=== PATIENT | female | born 1985 | race Caucasian/White ===

== ENCOUNTER 2022-12-13 13:49 | Inpatient (IN) | payer MEDICARE, MEDICAID ==
[~2022-12-13] VITALS: Ht 167.6 cm; Wt 125.0 kg
[~2022-12-13 13:49] MED LIST: BUME2TAB5 PO; CARV25TA55 PO; CLON0.2T PO; ERGO1CAP12 PO; FERR1TAB17 PO; GAB100C PO; LOSA-69 PO
[2022-12-13 14:56] LABS: Basophils # (auto) 0.1 10 ^3/uL (0-0.2); Basophils % (auto) 0.8 % (0.0-2.0); Eosinophils # (auto) 0.1 10 ^3/uL (0-0.8); Eosinophils % (auto) 1.7 % (0.0-7.0); Hemoglobin 13.5 g/dL (12.2-16.2); Lymphocytes # (auto) 1.8 10 ^3/uL (0.4-5.4); Lymphocytes % (auto) 22.7 % (10.0-50.0); Mean Corpuscular Hemoglobin 32.4 pg (28.0-32.0); Mean Corpuscular Hgb Conc. 33.7 g/dL (32.0-36.0); Monocytes # (auto) 0.6 10 ^3/uL (0-1.3); Monocytes % (auto) 8.2 % (0.0-12.0); Neutrophils # (auto) 5.2 10 ^3/uL (1.6-8.6); Neutrophils % (auto) 66.6 % (37.0-80.0); Nucleated Red Blood Cells % 0.4 %; Red Blood Cells 4.17 10^6/uL (4.0-5.20); Red Cell Distribution Width 15.1 % (11.8-14.3); White Blood Cell 7.9 10^3/uL (4.4-10.8)
[2022-12-13] MEDS ORDERED: NITROGLYCERIN 0.4 MG SL TAB SL PRN (17:00)
[2022-12-13] MEDS ORDERED: MORPHINE SULFATE INJ 2 MG/ml SYRG IV PRN (17:00)
[2022-12-13 17:39] LABS: Anion Gap 8 (5-15); Carbon Dioxide 30 mmol/L (21-32); Chloride 98 mmol/L (98-107); Potassium 4.5 mmol/L (3.5-5.1); Sodium 136 mmol/L (136-145)
[2022-12-13 17:40] LABS: Alanine Aminotransferase 28 U/L (13-56); Albumin 3.4 g/dL (3.4-5.0); Alkaline Phosphatase 113 U/L (45-117); Aspartate Aminotransferase 15 U/L (15-37); BUN/Creatinine Ratio 5.5; Bilirubin, Total 0.5 mg/dL (0.2-1.0); Blood Urea Nitrogen 28 mg/dL (7-18); Calcium 8.6 mg/dL (8.5-10.1); GFR African American 12 mL/min; GFR Non-African American 10 mL/min; Glucose 117 mg/dL (74-106); Total Protein 7.4 g/dL (6.4-8.2)
[2022-12-13] MEDS ORDERED: PANTOPRAZOLE 40 MG/10 ML VIAL INJ IV ONE (17:45)
[2022-12-13] MEDS ORDERED: BUMETANIDE 1 MG TAB PO SCH (17:58)
[2022-12-13] MEDS ORDERED: ERGOCALCIFEROL 50,000 UNIT(1.25MG) CAP PO SCH (18:00)
[2022-12-13] MEDS: BUMETANIDE 1 MG TAB PO SCH (18:00)
[2022-12-13] MEDS: HEPARIN SODIUM (PORCINE) 5000 UNITS/ML 1ML VIAL SC SCH (21:38)
[2022-12-13] MEDS: Ferric Citrate (Auryxia) PO SCH (21:39)
[2022-12-13] MEDS: CARVEDILOL 12.5 MG TAB PO SCH (21:39)
[2022-12-14] MEDS: ONDANSETRON HCL 4 MG/2 ML VIAL IV PRN ×3 (03:35→18:19)
[2022-12-14 05:11] LABS: Basophils # (auto) 0.1 10 ^3/uL (0-0.2); Eosinophils # (auto) 0.1 10 ^3/uL (0-0.8); Eosinophils % (auto) 1.3 % (0.0-7.0); Hematocrit 39.9 % (36.0-46.0); Hemoglobin 13.3 g/dL (12.2-16.2); Lymphocytes # (auto) 2.2 10 ^3/uL (0.4-5.4); Lymphocytes % (auto) 24.8 % (10.0-50.0); Mean Corpuscular Hgb Conc. 33.3 g/dL (32.0-36.0); Mean Corpuscular Volume 96.1 fL (80.0-100.0); Monocytes # (auto) 0.8 10 ^3/uL (0-1.3); Monocytes % (auto) 8.7 % (0.0-12.0); Neutrophils # (auto) 5.6 10 ^3/uL (1.6-8.6); Neutrophils % (auto) 64.2 % (37.0-80.0); Nucleated Red Blood Cells % 0.1 %; Red Blood Cells 4.15 10^6/uL (4.0-5.20); Red Cell Distribution Width 15.4 % (11.8-14.3); White Blood Cell 8.7 10^3/uL (4.4-10.8)
[2022-12-14] MEDS: BUMETANIDE 1 MG TAB PO SCH ×2 (06:50→18:20)
[2022-12-14] MEDS: Ferric Citrate (Auryxia) PO SCH (07:51)
[2022-12-14] MEDS ORDERED: LOSARTAN POTASSIUM 50 MG TAB PO SCH (10:00)
[2022-12-14] MEDS ORDERED: GABAPENTIN 100 MG CAP PO SCH ×2 (10:00→10:30)
[2022-12-14] MEDS ORDERED: LORazepam 2MG/ML-1ML VIAL IV PRN (10:30)
[2022-12-14] MEDS: HEPARIN SODIUM (PORCINE) 5000 UNITS/ML 1ML VIAL SC SCH ×2 (10:35→21:57)
[2022-12-14] MEDS: CARVEDILOL 12.5 MG TAB PO SCH ×2 (10:39→21:56)
[2022-12-14] MEDS: PANTOPRAZOLE 40 MG/10 ML VIAL INJ IV SCH (10:39)
[2022-12-14 13:12] VITALS: BP 146/94
[2022-12-14] MEDS ORDERED: APIX2.5T PO (14:13)
[2022-12-14] MEDS ORDERED: ONDA-188 PO (14:13)
[2022-12-14] MEDS ORDERED: B-COTAB10 OR (14:13)
[2022-12-14] MEDS ORDERED: NIFE1TAB30 (14:13)
[2022-12-14 14:34] LABS: Ferritin 290.8 ng/mL (10-322)
[2022-12-14 14:35] LABS: Folate (Folic Acid) > 24.00 ng/mL (5.38-24)
[2022-12-14 18:24] VITALS: BP 130/76
[2022-12-14] MEDS: FERRIC CITRATE PO SCH (19:05)
[2022-12-14 22:00] VITALS: BP 117/75
[2022-12-14] MEDS ORDERED: GABAPENTIN 100 MG CAP PO ONE (22:15)
[2022-12-15 05:00] VITALS: BP 141/77
[2022-12-15] MEDS: BUMETANIDE 1 MG TAB PO SCH (05:36)
[2022-12-15] MEDS ORDERED: SODIUM CHL 0.9% 1000 ML BAG XX ONE (07:00)
[2022-12-15 07:50] VITALS: BP 135/81
[2022-12-15] MEDS: FERRIC CITRATE PO SCH ×2 (08:03→13:19)
[2022-12-15] MEDS: PANTOPRAZOLE 40 MG/10 ML VIAL INJ IV SCH (08:04)
[2022-12-15] MEDS: CARVEDILOL 12.5 MG TAB PO SCH ×2 (08:09→13:18)
[2022-12-15] MEDS: HEPARIN SODIUM (PORCINE) 5000 UNITS/ML 1ML VIAL SC SCH (08:09)
[2022-12-15] MEDS: ONDANSETRON HCL 4 MG/2 ML VIAL IV PRN (10:03)
[2022-12-15 13:35] VITALS: BP 148/85
[2022-12-15] MEDS ORDERED: B-COTAB10 OR (14:21)
[2022-12-15 17:37] LABS: % Iron Saturation 38.4 % (15-50)
[2022-12-15 18:31] LABS: Cholesterol 150 mg/dL (< 200)
[2022-12-15 18:34] LABS: HDL Cholesterol 29 mg/dL (40-59); LDL Cholesterol 103 mg/dL (< 100); Triglycerides 235 mg/dL (< 150)
== END 2022-12-15 15:54 | disposition home or self-care (01) | DRG 314 ==
LOC: EDUNIT# 13:49 → ER 13:49 → EDBD 13:49 → TELE 17:05 → TELE-E-ADS 12-14 12:43 → TELE-EAST 12-14 19:10
PROVIDERS: ADMIT Nurse Practitioner Family; ATTEND Internal Medicine
PROC: 5A1D70Z Performance of Urinary Filtration, Intermittent, Less than 6 Hours Per Day (ICD-10-PCS; principal; 2022-12-15)
DX: I95.9 Hypotension, unspecified (principal); J81.0 Acute pulmonary edema; N18.6 End stage renal disease; I12.0 Hypertensive chronic kidney disease with stage 5 chronic kidney disease or end stage renal disease; Z68.41 Body mass index [BMI] 40.0-44.9, adult; D63.8 Anemia in other chronic diseases classified elsewhere; E66.01 Morbid (severe) obesity due to excess calories; Z20.822 Contact with and (suspected) exposure to COVID-19; G25.81 Restless legs syndrome; G47.00 Insomnia, unspecified; K21.9 Gastro-esophageal reflux disease without esophagitis; Z96.41 Presence of insulin pump (external) (internal); E83.39 Other disorders of phosphorus metabolism; E10.22 Type 1 diabetes mellitus with diabetic chronic kidney disease; E10.42 Type 1 diabetes mellitus with diabetic polyneuropathy; R09.89 Other specified symptoms and signs involving the circulatory and respiratory systems; Z71.3 Dietary counseling and surveillance; Z79.899 Other long term (current) drug therapy; Z79.4 Long term (current) use of insulin; Z99.2 Dependence on renal dialysis; Z80.0 Family history of malignant neoplasm of digestive organs; Z80.1 Family history of malignant neoplasm of trachea, bronchus and lung; Z80.3 Family history of malignant neoplasm of breast; Z80.41 Family history of malignant neoplasm of ovary; Z80.8 Family history of malignant neoplasm of other organs or systems; Z81.8 Family history of other mental and behavioral disorders; Z82.0 Family history of epilepsy and other diseases of the nervous system; Z82.3 Family history of stroke; Z82.49 Family history of ischemic heart disease and other diseases of the circulatory system; Z82.5 Family history of asthma and other chronic lower respiratory diseases; Z82.62 Family history of osteoporosis; Z83.3 Family history of diabetes mellitus
CPT/HCPCS: 36415; 70450; 71045; 80053; 80061; 82607; 82728; 82746; 82962; 83036; 83540; 83550; 83880; 84443; 84484; 85025; 87426; 90935; 93005; 93886; 95819; 96374; 96375; C9113; G0378; J1642; J2405

== ENCOUNTER 2023-09-10 13:41 | Inpatient (IN) | payer MEDICARE, MEDICAID ==
[~2023-09-10] VITALS: Ht 172.7 cm; Wt 115.0 kg
[~2023-09-10 13:41] MED LIST changes: +APIX2.5T PO; +B-COTAB10 OR; -LOSA-69 PO; +LOSA50TA46 PO; +ONDA-188 PO
[2023-09-10 14:30] LABS: Basophils # (auto) 0 10 ^3/uL (0-0.2); Basophils % (auto) 0.2 % (0.0-2.0); Eosinophils # (auto) 0.1 10 ^3/uL (0-0.8); Eosinophils % (auto) 0.9 % (0.0-7.0); Hematocrit 33.1 % (36.0-46.0); Hemoglobin 10.9 g/dL (12.2-16.2); Lymphocytes # (auto) 1.5 10 ^3/uL (0.4-5.4); Lymphocytes % (auto) 9.6 % (10.0-50.0); Mean Corpuscular Hemoglobin 30.8 pg (28.0-32.0); Mean Corpuscular Volume 93.4 fL (80.0-100.0); Monocytes # (auto) 1.4 10 ^3/uL (0-1.3); Monocytes % (auto) 9.1 % (0.0-12.0); Neutrophils # (auto) 12.7 10 ^3/uL (1.6-8.6); Neutrophils % (auto) 80.2 % (37.0-80.0); Red Blood Cells 3.55 10^6/uL (4.0-5.20); Red Cell Distribution Width 14.8 % (11.8-14.3); White Blood Cell 15.9 10^3/uL (4.4-10.8)
[2023-09-10 14:45] LABS: Alanine Aminotransferase 19 U/L (7-40); Albumin 3.9 g/dL (3.2-4.8); Alkaline Phosphatase 172 U/L (46-116); Anion Gap 9 (5-15); Aspartate Aminotransferase 24 U/L (13-40); BUN/Creatinine Ratio 4.3 (10.0-20.0); Bilirubin, Total 0.3 mg/dL (0.2-1.0); Blood Urea Nitrogen 34 mg/dL (9-23); Calcium 9.2 mg/dL (8.7-10.4); Carbon Dioxide 28 mmol/L (20-30); Chloride 90 mmol/L (98-107); Glucose 330 mg/dL (74-106); Potassium 4.9 mmol/L (3.5-5.1); Sodium 127 mmol/L (136-145)
[2023-09-10] MEDS ORDERED: LACTATED RINGER'S 1,000 ML IV ONE (20:15)
[2023-09-10] MEDS ORDERED: VANCOMYCIN 1GM/250ML 250 ML IV ONE (20:15)
[2023-09-10] MEDS ORDERED: PIPERACILLIN-TAZOB 3.375GM 100 ML IV ONE (20:15)
[2023-09-10] MEDS ORDERED: HYDROcodone-ACET 10/325MG TAB PO ONE (20:45)
[2023-09-10 20:58] LABS: Lipase 24 U/L (12-53)
[2023-09-10 20:59] LABS: Magnesium 2.3 mg/dL (1.6-2.6)
[2023-09-10 21:14] LABS: INR 1.23 (0.9-1.15); Partial Thromboplastin Time 35.2 SEC (24.5-34.5); Prothrombin Time 12.7 sec (9.3-11.8)
[2023-09-10 21:22] LABS: Erythrocyte Sedimentation Rate 89 mm/hr (0-20)
[2023-09-10] MEDS ORDERED: MORPHINE SULFATE INJ 2 MG/ml SYRG IV PRN (23:00)
[2023-09-10] MEDS ORDERED: NITROGLYCERIN 0.4 MG SL TAB SL PRN (23:00)
[2023-09-10] MEDS ORDERED: HYDROcodone-ACET 5/325MG TAB PO PRN (23:00)
[2023-09-10] MEDS ORDERED: ONDANSETRON HCL 4 MG/2 ML VIAL IV PRN (23:00)
[2023-09-10] MEDS ORDERED: VANCOMYCIN PER PHARMACY 0 MG IV SCH (23:00)
[2023-09-10] MEDS ORDERED: DEXTROSE (50%) 50ML SYRG IV PRN (23:00)
[2023-09-10 23:23] LABS: CRP High Sensitivity > 20 mg/dL (<1.0)
[2023-09-11] MEDS ORDERED: FERR1TAB17 PO (02:28)
[2023-09-11 05:00] VITALS: BP 107/55; PULSE 74; RESP 16; TEMP 98.2; O2SAT 96
[2023-09-11 05:46] LABS: Basophils # (auto) 0.1 10 ^3/uL (0-0.2); Basophils % (auto) 0.3 % (0.0-2.0); Eosinophils # (auto) 0.3 10 ^3/uL (0-0.8); Eosinophils % (auto) 1.6 % (0.0-7.0); Hematocrit 31.2 % (36.0-46.0); Hemoglobin 10.3 g/dL (12.2-16.2); Lymphocytes # (auto) 2.1 10 ^3/uL (0.4-5.4); Lymphocytes % (auto) 12.2 % (10.0-50.0); Mean Corpuscular Hgb Conc. 33.1 g/dL (32.0-36.0); Mean Corpuscular Volume 93.6 fL (80.0-100.0); Monocytes # (auto) 1.9 10 ^3/uL (0-1.3); Monocytes % (auto) 11.1 % (0.0-12.0); Neutrophils # (auto) 12.8 10 ^3/uL (1.6-8.6); Neutrophils % (auto) 74.8 % (37.0-80.0); Nucleated Red Blood Cells % 0.1 %; Red Blood Cells 3.33 10^6/uL (4.0-5.20); Red Cell Distribution Width 14.5 % (11.8-14.3); White Blood Cell 17.1 10^3/uL (4.4-10.8)
[2023-09-11 05:51] VITALS: PULSE 74; RESP 16; O2SAT 96
[2023-09-11] MEDS ORDERED: cloNIDine HCL 0.1 MG TAB PO SCH (06:00)
[2023-09-11] MEDS ORDERED: BUMETANIDE 1 MG TAB PO SCH (06:00)
[2023-09-11 06:07] LABS: Alanine Aminotransferase 16 U/L (7-40); Albumin 3.7 g/dL (3.2-4.8); Alkaline Phosphatase 142 U/L (46-116); Anion Gap 8 (5-15); Aspartate Aminotransferase 9 U/L (13-40); BUN/Creatinine Ratio 4.3 (10.0-20.0); Bilirubin, Total 0.4 mg/dL (0.2-1.0); Blood Urea Nitrogen 37 mg/dL (9-23); Calcium 9.3 mg/dL (8.5-10.1); Carbon Dioxide 28 mmol/L (20-30); Chloride 93 mmol/L (98-107); Glucose 131 mg/dL (74-106); Potassium 4.6 mmol/L (3.5-5.1); Sodium 129 mmol/L (136-145); Total Protein 7.5 g/dL (5.7-8.2)
[2023-09-11] MEDS: InsuLIN REG 1unit/0.01ml Soln (100units/ml) SC SCH ×4 (07:00→21:18)
[2023-09-11] MEDS: ACCU-CHEK COMFORT CURVE STRIP VI SCH ×4 (07:00→21:17)
[2023-09-11 09:00] VITALS: BP 121/66; PULSE 77; RESP 19; TEMP 98.4; O2SAT 98
[2023-09-11] MEDS: PIPERACILLIN-TAZOB 2.25GM 50 ML IV SCH ×2 (09:10→21:32)
[2023-09-11] MEDS ORDERED: APIXABAN 2.5 MG TAB PO SCH (10:00)
[2023-09-11] MEDS ORDERED: CARVEDILOL 12.5 MG TAB PO SCH (10:00)
[2023-09-11] MEDS ORDERED: guaiFENesin-DM 100/10mg/5ml SYR PO PRN (11:45)
[2023-09-11] MEDS ORDERED: SODIUM CHL 0.9% 1000 ML BAG XX ONE (11:45)
[2023-09-11 13:06] VITALS: BP 122/60; PULSE 85; RESP 18; TEMP 98.6; O2SAT 96
[2023-09-11 17:00] VITALS: BP 127/78; PULSE 104; RESP 20; TEMP 99.5; O2SAT 90
[2023-09-11] MEDS ORDERED: VANCOMYCIN 1GM/250ML 250 ML IV ONE (17:00)
[2023-09-11] MEDS: ACETAMINOPHEN 325 MG TAB PO PRN (20:29)
[2023-09-11] MEDS: DAKINS QUARTER STR 0.125% (NaHypochlorite) 473 ML TOPICAL SOL TOP SCH (21:32)
[2023-09-11 22:00] VITALS: BP 99/51; PULSE 104; RESP 16; TEMP 100; O2SAT 93
[2023-09-12 04:36] VITALS: BP 126/72; PULSE 87; RESP 16; TEMP 98.1; O2SAT 91
[2023-09-12 06:08] LABS: Basophils # (auto) 0.1 10 ^3/uL (0-0.2); Basophils % (auto) 0.7 % (0.0-2.0); Eosinophils # (auto) 0.2 10 ^3/uL (0-0.8); Eosinophils % (auto) 1.5 % (0.0-7.0); Hematocrit 30.5 % (36.0-46.0); Hemoglobin 9.8 g/dL (12.2-16.2); Lymphocytes # (auto) 1.7 10 ^3/uL (0.4-5.4); Lymphocytes % (auto) 14.1 % (10.0-50.0); Mean Corpuscular Hemoglobin 30.6 pg (28.0-32.0); Mean Corpuscular Hgb Conc. 32.3 g/dL (32.0-36.0); Mean Corpuscular Volume 94.7 fL (80.0-100.0); Monocytes # (auto) 1.5 10 ^3/uL (0-1.3); Monocytes % (auto) 13.1 % (0.0-12.0); Neutrophils # (auto) 8.3 10 ^3/uL (1.6-8.6); Neutrophils % (auto) 70.6 % (37.0-80.0); Red Blood Cells 3.22 10^6/uL (4.0-5.20); Red Cell Distribution Width 14.4 % (11.8-14.3); White Blood Cell 11.8 10^3/uL (4.4-10.8)
[2023-09-12] MEDS: ACCU-CHEK COMFORT CURVE STRIP VI SCH ×4 (06:11→22:10)
[2023-09-12] MEDS: InsuLIN REG 1unit/0.01ml Soln (100units/ml) SC SCH ×4 (06:11→22:00)
[2023-09-12 06:13] LABS: Alanine Aminotransferase 18 U/L (7-40); Albumin 3.6 g/dL (3.2-4.8); Alkaline Phosphatase 210 U/L (46-116); Anion Gap 4 (5-15); Aspartate Aminotransferase 22 U/L (13-40); BUN/Creatinine Ratio 3.4 (10.0-20.0); Bilirubin, Total 0.3 mg/dL (0.2-1.0); Carbon Dioxide 30 mmol/L (20-30); Chloride 96 mmol/L (98-107); Glucose 83 mg/dL (74-106); Magnesium 2.2 mg/dL (1.6-2.6); Potassium 4.4 mmol/L (3.5-5.1); Sodium 130 mmol/L (136-145); Total Protein 7.4 g/dL (5.7-8.2)
[2023-09-12 06:57] LABS: Blood Urea Nitrogen 23 mg/dL (9-23)
[2023-09-12 09:00] VITALS: BP 118/66; PULSE 83; RESP 20; TEMP 98.4; O2SAT 100
[2023-09-12] MEDS: PIPERACILLIN-TAZOB 2.25GM 50 ML IV SCH (11:47)
[2023-09-12] MEDS: DAKINS QUARTER STR 0.125% (NaHypochlorite) 473 ML TOPICAL SOL TOP SCH ×2 (11:47→21:55)
[2023-09-12 12:56] VITALS: BP 130/69; PULSE 76; RESP 19; TEMP 98.5; O2SAT 93
[2023-09-12 17:28] VITALS: BP 100/49; PULSE 86; RESP 19; TEMP 99.6; O2SAT 93
[2023-09-12] MEDS: AMPICILLIN & SULBACTAM SODIUM 3 GM in SODIUM CHL 0.9% 100 ML IV SCH (17:56)
[2023-09-12 20:00] VITALS: PULSE 98; RESP 18; O2SAT 100
[2023-09-12 22:00] VITALS: BP 128/76; PULSE 98; RESP 18; TEMP 99.3; O2SAT 100
[2023-09-13] VITALS (7 sets, daily range): BP systolic 109–143; BP diastolic 54–86; PULSE 84–97; RESP 18–19; TEMP 97.7–98.8; O2SAT 90–100
[2023-09-13 05:30] LABS: Basophils # (auto) 0.1 10 ^3/uL (0-0.2); Basophils % (auto) 0.8 % (0.0-2.0); Eosinophils # (auto) 0.3 10 ^3/uL (0-0.8); Eosinophils % (auto) 2.7 % (0.0-7.0); Hematocrit 28.5 % (36.0-46.0); Hemoglobin 9.2 g/dL (12.2-16.2); Lymphocytes # (auto) 1.6 10 ^3/uL (0.4-5.4); Lymphocytes % (auto) 14.1 % (10.0-50.0); Mean Corpuscular Hemoglobin 30.7 pg (28.0-32.0); Mean Corpuscular Hgb Conc. 32.3 g/dL (32.0-36.0); Mean Corpuscular Volume 94.8 fL (80.0-100.0); Monocytes # (auto) 1.2 10 ^3/uL (0-1.3); Monocytes % (auto) 10.4 % (0.0-12.0); Neutrophils # (auto) 8.2 10 ^3/uL (1.6-8.6); Nucleated Red Blood Cells % 0.1 %; Red Blood Cells 3.01 10^6/uL (4.0-5.20); Red Cell Distribution Width 14.9 % (11.8-14.3); White Blood Cell 11.5 10^3/uL (4.4-10.8)
[2023-09-13 05:47] LABS: Alanine Aminotransferase 47 U/L (7-40); Albumin 3.3 g/dL (3.2-4.8); Alkaline Phosphatase 293 U/L (46-116); Anion Gap 8 (5-15); Aspartate Aminotransferase 80 U/L (13-40); BUN/Creatinine Ratio 3.8 (10.0-20.0); Blood Urea Nitrogen 30 mg/dL (9-23); Calcium 8.4 mg/dL (8.5-10.1); Carbon Dioxide 26 mmol/L (20-30); Chloride 91 mmol/L (98-107); Glucose 377 mg/dL (74-106); Potassium 5.3 mmol/L (3.5-5.1)
[2023-09-13 05:48] LABS: Bilirubin, Total 0.5 mg/dL (0.2-1.0); Total Protein 7.1 g/dL (5.7-8.2)
[2023-09-13] MEDS: InsuLIN REG 1unit/0.01ml Soln (100units/ml) SC SCH ×4 (06:14→22:00)
[2023-09-13] MEDS: ACCU-CHEK COMFORT CURVE STRIP VI SCH ×4 (06:16→22:32)
[2023-09-13 06:20] LABS: Sodium 125 mmol/L (136-145)
[2023-09-13 06:50] LABS: Magnesium 2.2 mg/dL (1.6-2.6)
[2023-09-13] MEDS ORDERED: SODIUM CHL 0.9% 1000 ML BAG XX ONE (07:00)
[2023-09-13] MEDS ORDERED: LIDOCAINE 1% HCL (LOCAL ANESTH.) INJ 20ML MDV ONE (07:10)
[2023-09-13] MEDS ORDERED: ceFAZolin 1GM/50ML 0 ML IV ONE (10:42)
[2023-09-13] MEDS ORDERED: CLINDAMYCIN 600MG IV 50 ML IV ONE (11:00)
[2023-09-13] MEDS ORDERED: LIDOCAINE HCL (LOCAL ANESTH.) 0.5 % 50ML MDV IJ ONE (12:43)
[2023-09-13] MEDS ORDERED: CHLORHEXIDINE 4% TOPICAL soln 237ML TOP ONE (12:55)
[2023-09-13] MEDS: DAKINS QUARTER STR 0.125% (NaHypochlorite) 473 ML TOPICAL SOL TOP SCH ×2 (14:44→22:00)
[2023-09-13 15:58] LABS: INR 1.13 (0.9-1.15); Prothrombin Time 11.8 sec (9.3-11.8)
[2023-09-13] MEDS: AMPICILLIN & SULBACTAM SODIUM 3 GM in SODIUM CHL 0.9% 100 ML IV SCH (16:05)
[2023-09-13] MEDS: EPOETIN ALFA-EPBX 4,000 UNIT/ML VIAL SC ONE (21:00)
[2023-09-14] VITALS (7 sets, daily range): BP systolic 111–132; BP diastolic 59–77; PULSE 77–99; RESP 18–20; TEMP 97.4–98.5; O2SAT 92–98
[2023-09-14] MEDS: InsuLIN REG 1unit/0.01ml Soln (100units/ml) SC SCH ×4 (05:39→21:47)
[2023-09-14] MEDS: ACCU-CHEK COMFORT CURVE STRIP VI SCH ×4 (05:41→21:46)
[2023-09-14] MEDS ORDERED: SODIUM CHL 0.9% 1000 ML BAG XX ONE (07:00)
[2023-09-14] MEDS: DAKINS QUARTER STR 0.125% (NaHypochlorite) 473 ML TOPICAL SOL TOP SCH ×2 (10:00→22:06)
[2023-09-14] MEDS: AMPICILLIN & SULBACTAM SODIUM 3 GM in SODIUM CHL 0.9% 100 ML IV SCH (15:38)
[2023-09-14] MEDS ORDERED: EPOETIN ALFA-EPBX 4,000 UNIT/ML VIAL SC ONE (21:30)
[2023-09-14] MEDS: ACETAMINOPHEN 325 MG TAB PO PRN (21:41)
[2023-09-15 05:00] VITALS: BP 138/86; PULSE 87; RESP 20; TEMP 97.9; O2SAT 98
[2023-09-15] MEDS: ACETAMINOPHEN 325 MG TAB PO PRN (05:48)
[2023-09-15 08:00] VITALS: BP 125/73; PULSE 74; RESP 17; TEMP 97.9; O2SAT 96
[2023-09-15 08:34] VITALS: BP 125/73; PULSE 74; RESP 17; TEMP 97.9; O2SAT 96
[2023-09-15] MEDS ORDERED: AUG875T PO (09:18)
[2023-09-15] MEDS ORDERED: HYDR-4902 PO (09:18)
[2023-09-15] MEDS: InsuLIN REG 1unit/0.01ml Soln (100units/ml) SC SCH ×2 (11:30→17:00)
[2023-09-15] MEDS: ACCU-CHEK COMFORT CURVE STRIP VI SCH ×2 (11:49→17:00)
[2023-09-15] MEDS: DAKINS QUARTER STR 0.125% (NaHypochlorite) 473 ML TOPICAL SOL TOP SCH (11:49)
[2023-09-15 13:00] VITALS: BP 125/70; PULSE 77; RESP 18; TEMP 98; O2SAT 95
[2023-09-15] MEDS: AMPICILLIN & SULBACTAM SODIUM 3 GM in SODIUM CHL 0.9% 100 ML IV SCH (15:02)
[2023-09-15 17:00] VITALS: BP 120/71; PULSE 86; RESP 18; TEMP 98; O2SAT 97
[2023-09-15 17:07] VITALS: BP 120/71; PULSE 86; RESP 18; TEMP 98; O2SAT 97
== END 2023-09-15 17:50 | disposition home health service (06) | DRG 853 ==
LOC: ER 13:41 → OVERFLOW 22:58 → EAST 09-11 01:55
PROVIDERS: ADMIT Nurse Practitioner; ATTEND Family Medicine
PROC: 5A1D70Z Performance of Urinary Filtration, Intermittent, Less than 6 Hours Per Day (ICD-10-PCS; 2023-09-11)
PROC: 5A1D70Z Performance of Urinary Filtration, Intermittent, Less than 6 Hours Per Day (ICD-10-PCS; 2023-09-13)
PROC: 0JBR0ZZ Excision of Left Foot Subcutaneous Tissue and Fascia, Open Approach (ICD-10-PCS; principal; 2023-09-13 13:08)
DX: A41.9 Sepsis, unspecified organism (principal); N18.6 End stage renal disease; E87.1 Hypo-osmolality and hyponatremia; L03.116 Cellulitis of left lower limb; M86.8X7 Other osteomyelitis, ankle and foot; I12.0 Hypertensive chronic kidney disease with stage 5 chronic kidney disease or end stage renal disease; L02.612 Cutaneous abscess of left foot; L97.529 Non-pressure chronic ulcer of other part of left foot with unspecified severity; E66.9 Obesity, unspecified; D63.1 Anemia in chronic kidney disease; Z96.41 Presence of insulin pump (external) (internal); E78.5 Hyperlipidemia, unspecified; Z80.1 Family history of malignant neoplasm of trachea, bronchus and lung; Z80.3 Family history of malignant neoplasm of breast; Z80.41 Family history of malignant neoplasm of ovary; Z80.7 Family history of other malignant neoplasms of lymphoid, hematopoietic and related tissues; Z80.8 Family history of malignant neoplasm of other organs or systems; Z81.8 Family history of other mental and behavioral disorders; Z82.0 Family history of epilepsy and other diseases of the nervous system; Z82.3 Family history of stroke; Z82.49 Family history of ischemic heart disease and other diseases of the circulatory system; Z82.5 Family history of asthma and other chronic lower respiratory diseases; Z82.62 Family history of osteoporosis; Z83.3 Family history of diabetes mellitus; Z99.2 Dependence on renal dialysis; Z79.4 Long term (current) use of insulin; S91.302A Unspecified open wound, left foot, initial encounter; X58.XXXA Exposure to other specified factors, initial encounter; Y93.89 Activity, other specified; Y92.89 Other specified places as the place of occurrence of the external cause; Y99.8 Other external cause status; B95.61 Methicillin susceptible Staphylococcus aureus infection as the cause of diseases classified elsewhere; E10.621 Type 1 diabetes mellitus with foot ulcer; E10.65 Type 1 diabetes mellitus with hyperglycemia; E10.42 Type 1 diabetes mellitus with diabetic polyneuropathy; E10.22 Type 1 diabetes mellitus with diabetic chronic kidney disease
CPT/HCPCS: 36415; 71045; 73630; 73718; 80053; 80202; 82010; 82962; 83605; 83690; 83735; 83930; 84484; 85025; 85610; 85652; 85730; 86141; 87040; 87070; 87075; 87077; 87186; 87205; 90935; 97110; 97163; 97530; G0378; J0690; J1642; J2001; J2405; J2543; J3490

== ENCOUNTER 2023-10-08 07:32 | Emergency (ER) | payer MEDICARE, MEDICAID ==
[~2023-10-08] VITALS: Ht 172.7 cm; Wt 118.0 kg
[~2023-10-08 07:32] MED LIST changes: -APIX2.5T PO; +AUG875T PO; -CARV25TA55 PO; -CLON0.2T PO; +HYDR-4902 PO; -LOSA50TA46 PO
[2023-10-08 08:24] LABS: Basophils # (auto) 0.1 10 ^3/uL (0-0.2); Basophils % (auto) 0.6 % (0.0-2.0); Eosinophils # (auto) 0.2 10 ^3/uL (0-0.8); Eosinophils % (auto) 2.2 % (0.0-7.0); Hemoglobin 11.8 g/dL (12.2-16.2); Lymphocytes % (auto) 23.8 % (10.0-50.0); Mean Corpuscular Hemoglobin 30.9 pg (28.0-32.0); Mean Corpuscular Hgb Conc. 33.6 g/dL (32.0-36.0); Mean Corpuscular Volume 91.9 fL (80.0-100.0); Monocytes # (auto) 0.8 10 ^3/uL (0-1.3); Monocytes % (auto) 9.5 % (0.0-12.0); Neutrophils # (auto) 5.3 10 ^3/uL (1.6-8.6); Neutrophils % (auto) 63.9 % (37.0-80.0); Red Blood Cells 3.81 10^6/uL (4.0-5.20); Red Cell Distribution Width 15.2 % (11.8-14.3); White Blood Cell 8.3 10^3/uL (4.4-10.8)
[2023-10-08 08:46] LABS: Alanine Aminotransferase 32 U/L (7-40); Albumin 4.2 g/dL (3.2-4.8); Alkaline Phosphatase 156 U/L (46-116); Anion Gap 8 (5-15); Aspartate Aminotransferase 17 U/L (13-40); BUN/Creatinine Ratio 5.6 (10.0-20.0); Blood Urea Nitrogen 44 mg/dL (9-23); Calcium 9.7 mg/dL (8.7-10.4); Carbon Dioxide 29 mmol/L (20-30); Chloride 95 mmol/L (98-107); Glucose 234 mg/dL (74-106); Lipase 48 U/L (12-53); Potassium 4.6 mmol/L (3.5-5.1); Sodium 132 mmol/L (136-145)
[2023-10-08 08:47] LABS: Bilirubin, Total 0.3 mg/dL (0.2-1.0)
[2023-10-08 09:33] VITALS: BP 139/83; PULSE 89; RESP 15; TEMP 97.5; O2SAT 99
== END 2023-10-08 09:38 | disposition home or self-care (01) ==
LOC: ER 07:32
DX: R10.30 Lower abdominal pain, unspecified (principal); R11.2 Nausea with vomiting, unspecified; M54.59 Other low back pain; R30.9 Painful micturition, unspecified; I12.0 Hypertensive chronic kidney disease with stage 5 chronic kidney disease or end stage renal disease; E11.22 Type 2 diabetes mellitus with diabetic chronic kidney disease; N18.6 End stage renal disease; Z98.890 Other specified postprocedural states; Z88.8 Allergy status to other drugs, medicaments and biological substances; Z79.899 Other long term (current) drug therapy
CPT/HCPCS: 36415; 74176; 80053; 83690; 85025

== ENCOUNTER 2024-01-03 15:54 | Inpatient (IN) | payer MEDICARE, MEDICAID ==
[~2024-01-03] VITALS: Ht 172.7 cm; Wt 132.0 kg
[2024-01-03 18:41] LABS: Chloride 96 mmol/L (98-107); Potassium 4.3 mmol/L (3.5-5.1); Sodium 132 mmol/L (136-145)
[2024-01-03 18:42] LABS: Anion Gap 5 (5-15); Carbon Dioxide 31 mmol/L (20-30)
[2024-01-03 18:43] LABS: Calcium 9.6 mg/dL (8.5-10.1)
[2024-01-03 18:44] LABS: Basophils # (auto) 0 10 ^3/uL (0-0.2); Basophils % (auto) 0.5 % (0.0-2.0); Eosinophils # (auto) 0.2 10 ^3/uL (0-0.8); Eosinophils % (auto) 1.7 % (0.0-7.0); Hematocrit 41.2 % (36.0-46.0); Hemoglobin 13.8 g/dL (12.2-16.2); Lymphocytes # (auto) 2.2 10 ^3/uL (0.4-5.4); Lymphocytes % (auto) 23.2 % (10.0-50.0); Mean Corpuscular Hemoglobin 32.8 pg (28.0-32.0); Mean Corpuscular Hgb Conc. 33.6 g/dL (32.0-36.0); Mean Corpuscular Volume 97.5 fL (80.0-100.0); Monocytes # (auto) 0.8 10 ^3/uL (0-1.3); Monocytes % (auto) 9.1 % (0.0-12.0); Neutrophils # (auto) 6.1 10 ^3/uL (1.6-8.6); Neutrophils % (auto) 65.5 % (37.0-80.0); Nucleated Red Blood Cells % 0.1 %; Red Blood Cells 4.22 10^6/uL (4.0-5.20); White Blood Cell 9.3 10^3/uL (4.4-10.8)
[2024-01-03 18:47] LABS: BUN/Creatinine Ratio 2.7 (10.0-20.0); Blood Urea Nitrogen 14 mg/dL (9-23); Glucose 340 mg/dL (74-106)
[2024-01-03 19:01] LABS: INR 0.98 (0.9-1.15); Partial Thromboplastin Time 30.5 SEC (24.5-34.5); Prothrombin Time 10.3 sec (9.3-11.8)
[2024-01-03] MEDS ORDERED: DEXTROSE (50%) 50ML SYRG IV PRN (21:00)
[2024-01-04] MEDS: InsuLIN REG 1unit/0.01ml Soln (100units/ml) SC SCH
[2024-01-04 01:00] VITALS: PULSE 93; RESP 18; O2SAT 96
[2024-01-04] MEDS: cefTRIAXone 1GM/50ML D5W 50 ML IV SCH (01:16)
[2024-01-04] MEDS: CLINDAMYCIN 600MG IV 50 ML IV SCH ×2 (01:49→10:09)
[2024-01-04] MEDS: ACCU-CHEK COMFORT CURVE STRIP VI SCH ×2 (01:57→13:00)
[2024-01-04 05:08] LABS: Basophils # (auto) 0.1 10 ^3/uL (0-0.2); Basophils % (auto) 0.8 % (0.0-2.0); Eosinophils # (auto) 0.2 10 ^3/uL (0-0.8); Eosinophils % (auto) 2.1 % (0.0-7.0); Hematocrit 36.2 % (36.0-46.0); Hemoglobin 12.4 g/dL (12.2-16.2); Lymphocytes % (auto) 31.7 % (10.0-50.0); Mean Corpuscular Hgb Conc. 34.2 g/dL (32.0-36.0); Mean Corpuscular Volume 96.4 fL (80.0-100.0); Monocytes # (auto) 1.2 10 ^3/uL (0-1.3); Monocytes % (auto) 12.6 % (0.0-12.0); Neutrophils % (auto) 52.8 % (37.0-80.0); Red Blood Cells 3.76 10^6/uL (4.0-5.20); Red Cell Distribution Width 14.9 % (11.8-14.3); White Blood Cell 9.5 10^3/uL (4.4-10.8)
[2024-01-04 05:17] LABS: Alanine Aminotransferase 19 U/L (7-40); Albumin 3.8 g/dL (3.2-4.8); Alkaline Phosphatase 116 U/L (46-116); Anion Gap 8 (5-15); Aspartate Aminotransferase 12 U/L (13-40); BUN/Creatinine Ratio 3.9 (10.0-20.0); Blood Urea Nitrogen 23 mg/dL (9-23); Carbon Dioxide 29 mmol/L (20-30); Chloride 98 mmol/L (98-107); Glucose 237 mg/dL (74-106); Potassium 3.9 mmol/L (3.5-5.1); Sodium 135 mmol/L (136-145)
[2024-01-04 05:18] LABS: Bilirubin, Total 0.3 mg/dL (0.2-1.0); Total Protein 7.2 g/dL (5.7-8.2)
[2024-01-04] MEDS: ONDANSETRON HCL 4 MG/2 ML VIAL IV PRN (09:17)
[2024-01-04] MEDS ORDERED: CLINDAMYCIN 600MG IV 50 ML IV SCH (10:00)
[2024-01-04] MEDS: INSULIN LANTUS (GLARGINE) 1 /0.01ml (100units/ml) SC ONE (10:15)
[2024-01-04 10:52] LABS: CRP High Sensitivity 1.1 mg/dL (<1.0)
[2024-01-04] MEDS ORDERED: VANCOMYCIN PER PHARMACY 0 MG IV SCH (13:15)
[2024-01-04 13:30] LABS: Magnesium 2.2 mg/dL (1.6-2.6)
[2024-01-04] MEDS: VANCOMYCIN 1GM/200ML 200 ML IV ONE (13:44)
[2024-01-04] MEDS: HYDROcodone-ACET 5/325MG TAB PO PRN (14:34)
[2024-01-04 15:16] VITALS: PULSE 92; RESP 18; O2SAT 96
[2024-01-04 15:26] LABS: Urine Amorphous Crystal FEW /hpf (None Seen); Urine Bacteria FEW /hpf (None Seen); Urine Blood 1+ /uL (Negative); Urine Clarity HAZY (Clear); Urine Color Yellow (Yellow); Urine Protein, UAD 3+ (Negative); Urine Specific Gravity 1.016 (1.001-1.035); Urine Urobilinogen Normal (Negative); Urine WBC 47 /hpf (0 - 5)
[2024-01-04 15:38] LABS: Amphetamine Screen, Urine Neg (NEGATIVE); Barbiturate Scree,Urine Neg (NEGATIVE); Benzodiazephine Screen, Urine Neg (NEGATIVE); Cannabinoid Screen, Urine Neg (NEGATIVE); Cocaine Screen, Urine Neg (NEGATIVE); Opiate Scree,Urine Neg (NEGATIVE); Phencyclidine Screen, Urine Neg (NEGATIVE)
[2024-01-04 15:56] VITALS: BP 127/64; PULSE 80; PULSE 90; RESP 20; TEMP 97.3; O2SAT 94; O2SAT 96
[2024-01-04] MEDS: VANCOMYCIN 750mg/150ml 150 ML IV ONE (17:30)
[2024-01-04 20:00] VITALS: BP 106/54; PULSE 85; RESP 18; TEMP 98.1; O2SAT 96
[2024-01-04 22:00] VITALS: BP 106/54; PULSE 85; RESP 18; TEMP 98.1; O2SAT 92
[2024-01-04] MEDS: MEROPENEM 500MG IVPB 50 ML IV SCH (22:52)
[2024-01-05] VITALS (8 sets, daily range): BP systolic 122–139; BP diastolic 61–72; PULSE 80–92; RESP 16–18; TEMP 97.8–98.2; O2SAT 93–97
[2024-01-05 05:43] LABS: Basophils # (auto) 0.1 10 ^3/uL (0-0.2); Basophils % (auto) 0.7 % (0.0-2.0); Eosinophils # (auto) 0.2 10 ^3/uL (0-0.8); Eosinophils % (auto) 2.8 % (0.0-7.0); Hematocrit 38.6 % (36.0-46.0); Hemoglobin 12.7 g/dL (12.2-16.2); Lymphocytes # (auto) 2.3 10 ^3/uL (0.4-5.4); Lymphocytes % (auto) 27.1 % (10.0-50.0); Mean Corpuscular Hemoglobin 32.9 pg (28.0-32.0); Mean Corpuscular Hgb Conc. 32.8 g/dL (32.0-36.0); Mean Corpuscular Volume 100.3 fL (80.0-100.0); Monocytes # (auto) 0.8 10 ^3/uL (0-1.3); Monocytes % (auto) 9.8 % (0.0-12.0); Neutrophils # (auto) 5.1 10 ^3/uL (1.6-8.6); Neutrophils % (auto) 59.6 % (37.0-80.0); Nucleated Red Blood Cells % 0.2 %; Red Blood Cells 3.84 10^6/uL (4.0-5.20); Red Cell Distribution Width 14.6 % (11.8-14.3); White Blood Cell 8.5 10^3/uL (4.4-10.8)
[2024-01-05 06:24] LABS: Alanine Aminotransferase 22 U/L (7-40); Alkaline Phosphatase 102 U/L (46-116); Anion Gap 13 (5-15); BUN/Creatinine Ratio 3.1 (10.0-20.0); Blood Urea Nitrogen 24 mg/dL (9-23); Calcium 9.1 mg/dL (8.7-10.4); Carbon Dioxide 21 mmol/L (20-30); Chloride 98 mmol/L (98-107); Glucose 190 mg/dL (74-106); Potassium 4.5 mmol/L (3.5-5.1); Sodium 132 mmol/L (136-145)
[2024-01-05 06:25] LABS: Magnesium 2.3 mg/dL (1.6-2.6)
[2024-01-05 06:26] LABS: Albumin 3.4 g/dL (3.2-4.8); Aspartate Aminotransferase 20 U/L (13-40)
[2024-01-05 06:27] LABS: Bilirubin, Total 0.2 mg/dL (0.2-1.0); Total Protein 6.9 g/dL (5.7-8.2)
[2024-01-05] MEDS ORDERED: INSULIN LANTUS (GLARGINE) 1 /0.01ml (100units/ml) SC SCH (07:00)
[2024-01-05] MEDS: SODIUM CHL 0.9% 1000 ML BAG XX ONE (07:00)
[2024-01-05] MEDS ORDERED: MORPHINE SULFATE INJ 2 MG/ml SYRG IV PRN (09:15)
[2024-01-05] MEDS ORDERED: METOCLOPRAMIDE HCL 5MG/ml INJ 2ml VIAL IV PRN (09:15)
[2024-01-05] MEDS ORDERED: HYDROmorphone HCL 2 MG/ML VL/or syr IV PRN ×3 (09:15→11:30)
[2024-01-05] MEDS: ACCU-CHEK COMFORT CURVE STRIP VI ONE ×2 (09:15→11:30)
[2024-01-05] MEDS: KETOROLAC TROMETH 30 MG/ML 1ML VIAL IV ONE (09:15)
[2024-01-05] MEDS ORDERED: ONDANSETRON HCL 4 MG/2 ML VIAL ONE (09:24)
[2024-01-05] MEDS ORDERED: SODIUM CHLORIDE LOCK 10 ML ONE (09:24)
[2024-01-05] MEDS ORDERED: fentaNYL CITRATE 100 MCG/2 ML VL ONE ×2 (09:24→10:44)
[2024-01-05] MEDS ORDERED: KETAMINE 50mg/ML 1ml syringe ONE (09:24)
[2024-01-05] MEDS ORDERED: MIDAZOLAM HCL 2MG/2ML 2ml VIAL (1mg/ml) ONE ×2 (09:24→10:44)
[2024-01-05] MEDS ORDERED: PROPOFOL 10 MG/ML 20 ML IV ONE ×2 (09:24→10:45)
[2024-01-05] MEDS: ACCU-CHEK COMFORT CURVE STRIP VI SCH (10:00)
[2024-01-05] MEDS ORDERED: MEROPENEM 500MG IVPB 50 ML IV SCH (10:00)
[2024-01-05] MEDS: CHLORHEXIDINE 4% TOPICAL soln 237ML TOP ONE (10:42)
[2024-01-05] MEDS: BUPIVACAINE 0.25% INJ 50ML VIAL ONE (11:09)
[2024-01-05] MEDS: LIDOCAINE 1% HCL (LOCAL ANESTH.) INJ 20ML MDV ONE (11:09)
[2024-01-05] MEDS ORDERED: MORPHINE SULFATE 4 MG/ML SYR/VIAL IV PRN (11:30)
[2024-01-05] MEDS ORDERED: LABETALOL HCL 5 MG/ML 4ML SYRINGE IV PRN (11:30)
[2024-01-05] MEDS ORDERED: MIDAZOLAM HCL 2MG/2ML 2ml VIAL (1mg/ml) IV PRN (11:30)
[2024-01-05] MEDS ORDERED: ePHEDrine SULFATE 50 MG/ML AMP IV PRN (11:30)
[2024-01-05] MEDS ORDERED: ONDANSETRON HCL 4 MG/2 ML VIAL IV PRN (11:30)
[2024-01-05] MEDS: VANCOMYCIN 500 MG in D5W 5% 100 ML IV ONE (19:01)
[2024-01-06 05:00] VITALS: BP 135/71; PULSE 85; RESP 18; TEMP 98.4; O2SAT 95
[2024-01-06 05:39] LABS: Basophils # (auto) 0.1 10 ^3/uL (0-0.2); Basophils % (auto) 0.8 % (0.0-2.0); Eosinophils # (auto) 0.2 10 ^3/uL (0-0.8); Eosinophils % (auto) 2.5 % (0.0-7.0); Hemoglobin 11.9 g/dL (12.2-16.2); Lymphocytes # (auto) 2.2 10 ^3/uL (0.4-5.4); Lymphocytes % (auto) 25.8 % (10.0-50.0); Mean Corpuscular Hemoglobin 32.9 pg (28.0-32.0); Mean Corpuscular Hgb Conc. 34.1 g/dL (32.0-36.0); Mean Corpuscular Volume 96.5 fL (80.0-100.0); Monocytes # (auto) 0.9 10 ^3/uL (0-1.3); Monocytes % (auto) 10.8 % (0.0-12.0); Neutrophils % (auto) 60.1 % (37.0-80.0); Nucleated Red Blood Cells % 0.9 %; Red Blood Cells 3.63 10^6/uL (4.0-5.20); Red Cell Distribution Width 14.3 % (11.8-14.3); White Blood Cell 8.4 10^3/uL (4.4-10.8)
[2024-01-06 05:55] LABS: Alanine Aminotransferase 18 U/L (7-40); Alkaline Phosphatase 104 U/L (46-116); Anion Gap 11 (5-15); BUN/Creatinine Ratio 6.2 (10.0-20.0); Calcium 8.6 mg/dL (8.7-10.4); Carbon Dioxide 26 mmol/L (20-30); Chloride 98 mmol/L (98-107); Glucose 104 mg/dL (74-106); Magnesium 2.2 mg/dL (1.6-2.6); Potassium 4.6 mmol/L (3.5-5.1); Sodium 135 mmol/L (136-145)
[2024-01-06 05:56] LABS: Albumin 3.5 g/dL (3.2-4.8); Aspartate Aminotransferase 11 U/L (13-40)
[2024-01-06 05:57] LABS: Bilirubin, Total 0.2 mg/dL (0.2-1.0); Total Protein 6.5 g/dL (5.7-8.2)
[2024-01-06 06:14] LABS: Blood Urea Nitrogen 55 mg/dL (9-23)
[2024-01-06] MEDS: SODIUM CHL 0.9% 1000 ML BAG XX ONE (07:00)
[2024-01-06 08:00] VITALS: BP 118/66; PULSE 88; RESP 18; RESP 20; TEMP 97.3; O2SAT 95; O2SAT 96
[2024-01-06 12:00] VITALS: BP 128/69; PULSE 84; RESP 18; TEMP 97.6; O2SAT 94
[2024-01-06 16:00] VITALS: BP 134/75; PULSE 83; RESP 16; TEMP 98.3; O2SAT 93
[2024-01-06 20:00] VITALS: PULSE 83; RESP 16
[2024-01-06 22:00] VITALS: BP 111/67; PULSE 90; RESP 16; TEMP 98.7; O2SAT 93
[2024-01-07 05:00] VITALS: BP 123/77; PULSE 83; RESP 16; TEMP 98.2; O2SAT 95
[2024-01-07 07:04] LABS: Basophils # (auto) 0.1 10 ^3/uL (0-0.2); Eosinophils # (auto) 0.1 10 ^3/uL (0-0.8); Eosinophils % (auto) 1.9 % (0.0-7.0); Hematocrit 36.2 % (36.0-46.0); Hemoglobin 12.2 g/dL (12.2-16.2); Lymphocytes % (auto) 32.8 % (10.0-50.0); Mean Corpuscular Hemoglobin 32.9 pg (28.0-32.0); Mean Corpuscular Hgb Conc. 33.6 g/dL (32.0-36.0); Mean Corpuscular Volume 97.8 fL (80.0-100.0); Monocytes % (auto) 15.5 % (0.0-12.0); Neutrophils % (auto) 48.8 % (37.0-80.0); Nucleated Red Blood Cells % 0.2 %; Red Cell Distribution Width 14.8 % (11.8-14.3); White Blood Cell 6.2 10^3/uL (4.4-10.8)
[2024-01-07 07:28] LABS: Alanine Aminotransferase 13 U/L (7-40); Albumin 3.5 g/dL (3.2-4.8); Alkaline Phosphatase 105 U/L (46-116); Anion Gap 8 (5-15); Aspartate Aminotransferase 15 U/L (13-40); BUN/Creatinine Ratio 5.7 (10.0-20.0); Blood Urea Nitrogen 46 mg/dL (9-23); Calcium 9.1 mg/dL (8.5-10.1); Carbon Dioxide 27 mmol/L (20-30); Chloride 100 mmol/L (98-107); Glucose 119 mg/dL (74-106); Potassium 4.9 mmol/L (3.5-5.1); Sodium 135 mmol/L (136-145)
[2024-01-07 07:29] LABS: Bilirubin, Total 0.2 mg/dL (0.2-1.0); Total Protein 6.2 g/dL (5.7-8.2)
[2024-01-07 08:00] VITALS: PULSE 84; RESP 18; O2SAT 95
[2024-01-07 09:01] VITALS: BP 128/75; PULSE 85; RESP 16; TEMP 98; O2SAT 94
[2024-01-07 12:39] VITALS: BP 119/73; PULSE 81; RESP 17; TEMP 98.3; O2SAT 94
[2024-01-07] MEDS: VANCOMYCIN 500 MG in D5W 5% 100 ML IV ONE (16:03)
[2024-01-07 16:45] VITALS: BP 149/77; PULSE 94; RESP 17; TEMP 98.6; O2SAT 97
[2024-01-08] VITALS (8 sets, daily range): BP systolic 93–138; BP diastolic 49–103; PULSE 72–100; RESP 16–22; TEMP 97.7–98.4; O2SAT 93–98
[2024-01-08] MEDS: SODIUM CHL 0.9% 1000 ML BAG XX ONE (07:00)
[2024-01-08 07:36] LABS: Basophils # (auto) 0.1 10 ^3/uL (0-0.2); Basophils % (auto) 0.8 % (0.0-2.0); Eosinophils # (auto) 0.2 10 ^3/uL (0-0.8); Eosinophils % (auto) 2.2 % (0.0-7.0); Hematocrit 37.1 % (36.0-46.0); Hemoglobin 12.4 g/dL (12.2-16.2); Lymphocytes # (auto) 2.3 10 ^3/uL (0.4-5.4); Lymphocytes % (auto) 27.8 % (10.0-50.0); Mean Corpuscular Hemoglobin 32.4 pg (28.0-32.0); Mean Corpuscular Hgb Conc. 33.4 g/dL (32.0-36.0); Mean Corpuscular Volume 97.1 fL (80.0-100.0); Monocytes # (auto) 1.2 10 ^3/uL (0-1.3); Monocytes % (auto) 14.2 % (0.0-12.0); Neutrophils # (auto) 4.5 10 ^3/uL (1.6-8.6); Nucleated Red Blood Cells % 0.2 %; Red Blood Cells 3.82 10^6/uL (4.0-5.20); Red Cell Distribution Width 14.8 % (11.8-14.3); White Blood Cell 8.2 10^3/uL (4.4-10.8)
[2024-01-08 08:12] LABS: Alanine Aminotransferase 14 U/L (7-40); Alkaline Phosphatase 107 U/L (46-116); Anion Gap 11 (5-15); Calcium 9.4 mg/dL (8.5-10.1); Carbon Dioxide 25 mmol/L (20-30); Chloride 99 mmol/L (98-107); Sodium 135 mmol/L (136-145)
[2024-01-08 08:13] LABS: Aspartate Aminotransferase 20 U/L (13-40); BUN/Creatinine Ratio 4.6 (10.0-20.0); Blood Urea Nitrogen 42 mg/dL (9-23); Glucose 111 mg/dL (74-106)
[2024-01-08 08:15] LABS: Albumin 3.8 g/dL (3.2-4.8)
[2024-01-08 08:16] LABS: Phosphorus 7.1 mg/dL (2.4-5.1); Total Protein 6.8 g/dL (5.7-8.2)
[2024-01-08 09:01] LABS: Magnesium 2.5 mg/dL (1.6-2.6)
[2024-01-08 09:03] LABS: Bilirubin, Total 0.2 mg/dL (0.2-1.0)
[2024-01-08] MEDS: ONDANSETRON ODT 4 MG TAB PO PRN (18:33)
[2024-01-09] VITALS (8 sets, daily range): BP systolic 87–141; BP diastolic 60–81; PULSE 78–90; RESP 18–20; TEMP 97.4–98; O2SAT 93–96
[2024-01-09 08:56] LABS: Basophils # (auto) 0.1 10 ^3/uL (0-0.2); Eosinophils # (auto) 0.2 10 ^3/uL (0-0.8); Hematocrit 35.9 % (36.0-46.0); Hemoglobin 12.2 g/dL (12.2-16.2); Lymphocytes # (auto) 1.8 10 ^3/uL (0.4-5.4); Lymphocytes % (auto) 28.2 % (10.0-50.0); Mean Corpuscular Hemoglobin 33.2 pg (28.0-32.0); Mean Corpuscular Hgb Conc. 33.9 g/dL (32.0-36.0); Mean Corpuscular Volume 97.8 fL (80.0-100.0); Monocytes # (auto) 1.1 10 ^3/uL (0-1.3); Monocytes % (auto) 17.9 % (0.0-12.0); Neutrophils # (auto) 3.2 10 ^3/uL (1.6-8.6); Neutrophils % (auto) 49.9 % (37.0-80.0); Red Blood Cells 3.67 10^6/uL (4.0-5.20); Red Cell Distribution Width 14.7 % (11.8-14.3); White Blood Cell 6.4 10^3/uL (4.4-10.8)
[2024-01-09] MEDS: cefTRIAXone 1GM/50ML D5W 50 ML IV SCH (10:11)
[2024-01-09] MEDS: FLORASTOR (S. BOULARDII) 250 MG CAP PO SCH (12:59)
[2024-01-09] MEDS: DAKINS QUARTER STR 0.125% (NaHypochlorite) 473 ML TOPICAL SOL TOP SCH (23:38)
[2024-01-10] VITALS (7 sets, daily range): BP systolic 99–141; BP diastolic 53–80; PULSE 69–106; RESP 18–20; TEMP 97.7–98.1; O2SAT 92–96
[2024-01-10 06:40] LABS: Basophils # (auto) 0.1 10 ^3/uL (0-0.2); Eosinophils # (auto) 0.2 10 ^3/uL (0-0.8); Eosinophils % (auto) 3.4 % (0.0-7.0); Hematocrit 35.6 % (36.0-46.0); Hemoglobin 12.1 g/dL (12.2-16.2); Lymphocytes # (auto) 1.7 10 ^3/uL (0.4-5.4); Lymphocytes % (auto) 27.4 % (10.0-50.0); Mean Corpuscular Hemoglobin 33.1 pg (28.0-32.0); Mean Corpuscular Hgb Conc. 33.9 g/dL (32.0-36.0); Mean Corpuscular Volume 97.5 fL (80.0-100.0); Monocytes # (auto) 1.1 10 ^3/uL (0-1.3); Monocytes % (auto) 17.9 % (0.0-12.0); Neutrophils # (auto) 3.1 10 ^3/uL (1.6-8.6); Neutrophils % (auto) 50.3 % (37.0-80.0); Nucleated Red Blood Cells % 0.2 %; Red Blood Cells 3.65 10^6/uL (4.0-5.20); Red Cell Distribution Width 14.7 % (11.8-14.3); White Blood Cell 6.2 10^3/uL (4.4-10.8)
[2024-01-10] MEDS: SODIUM CHL 0.9% 1000 ML BAG XX ONE (06:45)
[2024-01-10 06:53] LABS: Alanine Aminotransferase 11 U/L (7-40); Albumin 3.5 g/dL (3.2-4.8); Alkaline Phosphatase 95 U/L (46-116); Anion Gap 8 (5-15); Aspartate Aminotransferase 23 U/L (13-40); BUN/Creatinine Ratio 3.7 (10.0-20.0); Calcium 8.7 mg/dL (8.7-10.4); Carbon Dioxide 27 mmol/L (20-30); Chloride 98 mmol/L (98-107); Glucose 190 mg/dL (74-106); Magnesium 2.5 mg/dL (1.6-2.6); Potassium 4.8 mmol/L (3.5-5.1); Sodium 133 mmol/L (136-145)
[2024-01-10 06:54] LABS: Bilirubin, Total 0.3 mg/dL (0.2-1.0); Total Protein 6.9 g/dL (5.7-8.2)
[2024-01-10 06:59] LABS: Blood Urea Nitrogen 31 mg/dL (9-23)
[2024-01-10] MEDS: ONDANSETRON HCL 4 MG/2 ML VIAL IV PRN (10:16)
[2024-01-11 04:10] VITALS: BP 116/64; PULSE 88; RESP 20; TEMP 97.9; O2SAT 92
[2024-01-11 06:44] LABS: Anion Gap 8 (5-15); Carbon Dioxide 31 mmol/L (20-30); Chloride 98 mmol/L (98-107); Potassium 4.4 mmol/L (3.5-5.1); Sodium 137 mmol/L (136-145)
[2024-01-11 06:46] LABS: Calcium 8.8 mg/dL (8.7-10.4)
[2024-01-11 06:50] LABS: BUN/Creatinine Ratio 3.6 (10.0-20.0); Blood Urea Nitrogen 25 mg/dL (9-23); Glucose 145 mg/dL (74-106)
[2024-01-11 06:51] LABS: Magnesium 2.3 mg/dL (1.6-2.6)
[2024-01-11 08:00] VITALS: BP 123/71; PULSE 84; RESP 16; TEMP 99; O2SAT 92
[2024-01-11 12:00] VITALS: BP 128/77; PULSE 71; RESP 16; TEMP 98; O2SAT 96
[2024-01-11] MEDS: ONDANSETRON HCL 4 MG/2 ML VIAL IV PRN (14:00)
[2024-01-11 16:00] VITALS: BP 120/72; PULSE 79; RESP 16; TEMP 98.4; O2SAT 93
[2024-01-11 20:00] VITALS: BP 123/71; PULSE 84; PULSE 88; RESP 16; TEMP 99; O2SAT 92
[2024-01-11 22:00] VITALS: BP 130/70; PULSE 84; RESP 18; TEMP 98.4; O2SAT 98
[2024-01-12 05:00] VITALS: BP 121/70; PULSE 89; RESP 20; TEMP 97.9; O2SAT 98
[2024-01-12 06:24] LABS: Basophils # (auto) 0.1 10 ^3/uL (0-0.2); Basophils % (auto) 0.9 % (0.0-2.0); Eosinophils # (auto) 0.2 10 ^3/uL (0-0.8); Eosinophils % (auto) 2.4 % (0.0-7.0); Hematocrit 38.7 % (36.0-46.0); Hemoglobin 12.3 g/dL (12.2-16.2); Lymphocytes # (auto) 2.2 10 ^3/uL (0.4-5.4); Lymphocytes % (auto) 27.9 % (10.0-50.0); Mean Corpuscular Hemoglobin 32.9 pg (28.0-32.0); Mean Corpuscular Hgb Conc. 31.7 g/dL (32.0-36.0); Monocytes # (auto) 1.1 10 ^3/uL (0-1.3); Neutrophils # (auto) 4.3 10 ^3/uL (1.6-8.6); Neutrophils % (auto) 54.8 % (37.0-80.0); Nucleated Red Blood Cells % 0.1 %; Red Blood Cells 3.72 10^6/uL (4.0-5.20); White Blood Cell 7.9 10^3/uL (4.4-10.8)
[2024-01-12] MEDS ORDERED: SODIUM CHL 0.9% 1000 ML BAG XX ONE (07:00)
[2024-01-12 07:30] VITALS: TEMP 36.6
[2024-01-12 09:00] VITALS: BP 112/66; PULSE 85; RESP 16; TEMP 97.5; O2SAT 93
[2024-01-12] MEDS ORDERED: CIPR500T4 PO (12:15)
[2024-01-12 13:00] VITALS: BP 133/67; PULSE 84; RESP 16; TEMP 97.5; O2SAT 100
[2024-01-12] MEDS ORDERED: ZOFR4T PO (14:26)
[2024-01-12 15:05] VITALS: TEMP 36.4
[2024-01-12] MEDS ORDERED: EPOETIN ALFA-EPBX 10,000 UNIT/1ML VIAL SC ONE (21:00)
== END 2024-01-12 16:40 | disposition home or self-care (01) | DRG 623 ==
LOC: ER 15:54 → OVERFLOW 20:58 → WEST WING 01-04 15:51
PROVIDERS: ADMIT Internal Medicine Geriatric Medicine; ATTEND Internal Medicine Geriatric Medicine
PROC: 5A1D70Z Performance of Urinary Filtration, Intermittent, Less than 6 Hours Per Day (ICD-10-PCS; 2024-01-04)
PROC: 5A1D70Z Performance of Urinary Filtration, Intermittent, Less than 6 Hours Per Day (ICD-10-PCS; 2024-01-05)
PROC: 0JBR0ZZ Excision of Left Foot Subcutaneous Tissue and Fascia, Open Approach (ICD-10-PCS; principal; 2024-01-05 11:02)
PROC: 5A1D70Z Performance of Urinary Filtration, Intermittent, Less than 6 Hours Per Day (ICD-10-PCS; 2024-01-07)
PROC: 5A1D70Z Performance of Urinary Filtration, Intermittent, Less than 6 Hours Per Day (ICD-10-PCS; 2024-01-10)
PROC: 5A1D70Z Performance of Urinary Filtration, Intermittent, Less than 6 Hours Per Day (ICD-10-PCS; 2024-01-11)
DX: E10.69 Type 1 diabetes mellitus with other specified complication (principal); N18.6 End stage renal disease; E87.20 Acidosis, unspecified; L03.116 Cellulitis of left lower limb; I12.0 Hypertensive chronic kidney disease with stage 5 chronic kidney disease or end stage renal disease; L02.612 Cutaneous abscess of left foot; Z68.41 Body mass index [BMI] 40.0-44.9, adult; M86.8X7 Other osteomyelitis, ankle and foot; L97.529 Non-pressure chronic ulcer of other part of left foot with unspecified severity; Z99.2 Dependence on renal dialysis; I73.9 Peripheral vascular disease, unspecified; E66.01 Morbid (severe) obesity due to excess calories; D63.1 Anemia in chronic kidney disease; E66.9 Obesity, unspecified; E10.42 Type 1 diabetes mellitus with diabetic polyneuropathy; E10.621 Type 1 diabetes mellitus with foot ulcer; E10.65 Type 1 diabetes mellitus with hyperglycemia; Z79.4 Long term (current) use of insulin; Z80.0 Family history of malignant neoplasm of digestive organs; Z80.1 Family history of malignant neoplasm of trachea, bronchus and lung; Z80.3 Family history of malignant neoplasm of breast; Z80.41 Family history of malignant neoplasm of ovary; Z80.8 Family history of malignant neoplasm of other organs or systems; Z82.0 Family history of epilepsy and other diseases of the nervous system; Z80.7 Family history of other malignant neoplasms of lymphoid, hematopoietic and related tissues; Z81.8 Family history of other mental and behavioral disorders; Z83.3 Family history of diabetes mellitus; Z82.62 Family history of osteoporosis; Z82.5 Family history of asthma and other chronic lower respiratory diseases; Z82.49 Family history of ischemic heart disease and other diseases of the circulatory system; Z82.3 Family history of stroke
CPT/HCPCS: 36415; 71045; 80048; 80053; 80061; 80202; 80307; 81001; 81025; 82962; 83036; 83735; 84100; 84443; 85025; 85610; 85730; 86141; 87070; 87075; 87076; 87077; 87086; 87186; 87205; 87340; 90935; 93925; G0378; J1642; J1815; J2001; J2185; J2250; J2405; J2704; J3490; J7060; Q0162

== ENCOUNTER 2024-03-25 16:31 | Inpatient (IN) | payer MEDICARE, MEDICAID ==
[~2024-03-25] VITALS: Ht 172.7 cm; Wt 126.5 kg
[~2024-03-25 16:31] MED LIST changes: -AUG875T PO; -B-COTAB10 OR; -BUME2TAB5 PO; +CIPR500T4 PO; -ERGO1CAP12 PO; -FERR1TAB17 PO; -GAB100C PO; -HYDR-4902 PO; -ONDA-188 PO; +ZOFR4T PO
[2024-03-25 17:52] LABS: Basophils # (auto) 0.1 10 ^3/uL (0-0.2); Basophils % (auto) 0.5 % (0.0-2.0); Eosinophils # (auto) 0.2 10 ^3/uL (0-0.8); Eosinophils % (auto) 1.6 % (0.0-7.0); Hematocrit 36.1 % (36.0-46.0); Hemoglobin 12.2 g/dL (12.2-16.2); Lymphocytes # (auto) 2.2 10 ^3/uL (0.4-5.4); Lymphocytes % (auto) 17.6 % (10.0-50.0); Mean Corpuscular Hemoglobin 31.8 pg (28.0-32.0); Mean Corpuscular Hgb Conc. 33.8 g/dL (32.0-36.0); Mean Corpuscular Volume 93.8 fL (80.0-100.0); Neutrophils % (auto) 72.3 % (37.0-80.0); Nucleated Red Blood Cells % 0.1 %; Red Blood Cells 3.85 10^6/uL (4.0-5.20); Red Cell Distribution Width 15.4 % (11.8-14.3); White Blood Cell 12.5 10^3/uL (4.4-10.8)
[2024-03-25 18:14] LABS: Alanine Aminotransferase 28 U/L (7-40); Albumin 4.2 g/dL (3.2-4.8); Alkaline Phosphatase 129 U/L (46-116); Anion Gap 8 (5-15); Aspartate Aminotransferase 20 U/L (13-40); BUN/Creatinine Ratio 4.1 (10.0-20.0); Bilirubin, Total 0.3 mg/dL (0.2-1.0); Blood Urea Nitrogen 26 mg/dL (9-23); Calcium 9.6 mg/dL (8.5-10.1); Carbon Dioxide 35 mmol/L (20-30); Chloride 94 mmol/L (98-107); Glucose 143 mg/dL (74-106); Potassium 3.8 mmol/L (3.5-5.1); Sodium 137 mmol/L (136-145); Total Protein 7.9 g/dL (5.7-8.2)
[2024-03-25 19:28] LABS: INR 1.02 (0.9-1.15); Partial Thromboplastin Time 27.2 SEC (24.5-34.5); Prothrombin Time 10.8 sec (9.3-11.8)
[2024-03-25] MEDS: METOCLOPRAMIDE HCL 5MG/ml INJ 2ml VIAL IV ONE (23:14)
[2024-03-25] MEDS: SODIUM CHLORIDE 0.9% 1,000 ML IVB ONE (23:45)
[2024-03-25 23:46] VITALS: PULSE 90; RESP 18; O2SAT 96
[2024-03-26] VITALS (8 sets, daily range): BP systolic 108–140; BP diastolic 62–80; PULSE 75–96; RESP 13–20; TEMP 97.8–98.2; O2SAT 91–99
[2024-03-26] MEDS: PIPERACILLIN-TAZOB 3.375GM 100 ML IV ONE (00:59)
[2024-03-26] MEDS ORDERED: MORPHINE SULFATE INJ 2 MG/ml SYRG IV PRN (03:30)
[2024-03-26] MEDS: InsuLIN REG 1unit/0.01ml Soln (100units/ml) SC SCH (06:00)
[2024-03-26] MEDS: ACCU-CHEK COMFORT CURVE STRIP VI SCH (06:14)
[2024-03-26] MEDS: cefTRIAXone 1GM/50ML D5W 50 ML IV SCH (10:32)
[2024-03-26] MEDS: DEXTROSE (50%) 50ML SYRG IV PRN (15:55)
[2024-03-26] MEDS ORDERED: D5W/SOD CHL 0.45% 1,000 ML IV SCH (17:00)
[2024-03-26] MEDS: D5W/SOD CHLO 0.9% 1,000 ML IV SCH (18:32)
[2024-03-26 23:09] LABS: Urine Bacteria FEW /hpf (None Seen); Urine Blood Negative /uL (Negative); Urine Budding Yeast OCCASIONAL /hpf (None Seen); Urine Clarity Turbid (Clear); Urine Color Light-Yellow (Yellow); Urine Protein, UAD 3+ (Negative); Urine Specific Gravity 1.015 (1.001-1.035); Urine Urobilinogen Normal (Negative); Urine WBC 27 /hpf (0 - 5); Urine pH 7.5 (5.0-9.0)
[2024-03-27] VITALS (7 sets, daily range): BP systolic 106–145; BP diastolic 55–80; PULSE 83–101; RESP 17–20; TEMP 97.8–98.1; O2SAT 90–95
[2024-03-27 06:24] LABS: Basophils # (auto) 0 10 ^3/uL (0-0.2); Basophils % (auto) 0.4 % (0.0-2.0); Eosinophils # (auto) 0.2 10 ^3/uL (0-0.8); Eosinophils % (auto) 2.2 % (0.0-7.0); Hematocrit 32.8 % (36.0-46.0); Hemoglobin 11.1 g/dL (12.2-16.2); Lymphocytes # (auto) 2.5 10 ^3/uL (0.4-5.4); Lymphocytes % (auto) 23.7 % (10.0-50.0); Mean Corpuscular Hemoglobin 32.1 pg (28.0-32.0); Mean Corpuscular Hgb Conc. 33.9 g/dL (32.0-36.0); Mean Corpuscular Volume 94.9 fL (80.0-100.0); Monocytes % (auto) 9.6 % (0.0-12.0); Neutrophils # (auto) 6.7 10 ^3/uL (1.6-8.6); Neutrophils % (auto) 64.1 % (37.0-80.0); Red Blood Cells 3.46 10^6/uL (4.0-5.20); Red Cell Distribution Width 15.5 % (11.8-14.3); White Blood Cell 10.5 10^3/uL (4.4-10.8)
[2024-03-27 06:44] LABS: Alanine Aminotransferase 23 U/L (7-40); Albumin 3.7 g/dL (3.2-4.8); Alkaline Phosphatase 117 U/L (46-116); Anion Gap 9 (5-15); Aspartate Aminotransferase 13 U/L (13-40); BUN/Creatinine Ratio 4.7 (10.0-20.0); Bilirubin, Total 0.3 mg/dL (0.2-1.0); Calcium 9.1 mg/dL (8.7-10.4); Carbon Dioxide 31 mmol/L (20-30); Chloride 94 mmol/L (98-107); Glucose 178 mg/dL (74-106); Magnesium 2.3 mg/dL (1.6-2.6); Potassium 4.1 mmol/L (3.5-5.1); Sodium 134 mmol/L (136-145)
[2024-03-27] MEDS: SODIUM CHL 0.9% 1000 ML BAG XX ONE (07:00)
[2024-03-27 07:06] LABS: Blood Urea Nitrogen 39 mg/dL (9-23)
[2024-03-27] MEDS: ONDANSETRON HCL 4 MG/2 ML VIAL IV PRN (10:09)
[2024-03-27] MEDS: metroNIDAZOLE 500MG/100ML 100 ML IV ONE (14:55)
[2024-03-27] MEDS: ACETAMINOPHEN 325 MG TAB PO PRN (14:56)
[2024-03-27] MEDS: metroNIDAZOLE 500MG/100ML 100 ML IV SCH (21:35)
[2024-03-27] MEDS: PANTOPRAZOLE 40 MG/10 ML VIAL INJ IV SCH (21:42)
[2024-03-27] MEDS: METOCLOPRAMIDE HCL 5MG/ml INJ 2ml VIAL IV SCH (22:00)
[2024-03-28] VITALS (7 sets, daily range): BP systolic 106–154; BP diastolic 63–77; PULSE 65–98; RESP 17–18; TEMP 97.5–98.2; O2SAT 94–98
[2024-03-28] MEDS ORDERED: traMADol HCL 50 MG TAB PO PRN (10:30)
[2024-03-28 10:48] LABS: Hepatitis B Surface Antibody Positive (Negative)
[2024-03-28 11:00] LABS: Hepatitis B Surface Antigen Negative (Negative)
[2024-03-28] MEDS: MORPHINE SULFATE INJ 2 MG/ml SYRG IV PRN (12:00)
[2024-03-28] MEDS: InsuLIN REG 1unit/0.01ml Soln (100units/ml) SC SCH (15:29)
[2024-03-28] MEDS: ACCU-CHEK COMFORT CURVE STRIP VI SCH (15:30)
[2024-03-29 01:00] VITALS: BP 110/54; PULSE 68; RESP 18; TEMP 97.7; O2SAT 95
[2024-03-29 05:00] VITALS: BP 106/65; PULSE 80; RESP 18; TEMP 97.9; O2SAT 94
[2024-03-29 05:31] LABS: Basophils # (auto) 0.1 10 ^3/uL (0-0.2); Basophils % (auto) 0.5 % (0.0-2.0); Eosinophils # (auto) 0.2 10 ^3/uL (0-0.8); Eosinophils % (auto) 2.2 % (0.0-7.0); Hematocrit 31.6 % (36.0-46.0); Hemoglobin 10.9 g/dL (12.2-16.2); Lymphocytes # (auto) 2.1 10 ^3/uL (0.4-5.4); Lymphocytes % (auto) 21.6 % (10.0-50.0); Mean Corpuscular Hemoglobin 32.7 pg (28.0-32.0); Mean Corpuscular Hgb Conc. 34.4 g/dL (32.0-36.0); Monocytes # (auto) 0.9 10 ^3/uL (0-1.3); Monocytes % (auto) 9.6 % (0.0-12.0); Neutrophils # (auto) 6.4 10 ^3/uL (1.6-8.6); Neutrophils % (auto) 66.1 % (37.0-80.0); Red Blood Cells 3.32 10^6/uL (4.0-5.20); Red Cell Distribution Width 15.5 % (11.8-14.3); White Blood Cell 9.7 10^3/uL (4.4-10.8)
[2024-03-29 05:42] LABS: INR 1.08 (0.9-1.15); Partial Thromboplastin Time 25.7 SEC (24.5-34.5); Prothrombin Time 11.4 sec (9.3-11.8)
[2024-03-29 05:54] LABS: Alanine Aminotransferase 25 U/L (7-40); Albumin 3.8 g/dL (3.2-4.8); Alkaline Phosphatase 99 U/L (46-116); Anion Gap 8 (5-15); Aspartate Aminotransferase 16 U/L (13-40); BUN/Creatinine Ratio 3.4 (10.0-20.0); Bilirubin, Total 0.3 mg/dL (0.2-1.0); Calcium 9.5 mg/dL (8.7-10.4); Carbon Dioxide 26 mmol/L (20-30); Chloride 98 mmol/L (98-107); Glucose 68 mg/dL (74-106); Magnesium 2.1 mg/dL (1.6-2.6); Sodium 132 mmol/L (136-145); Total Protein 7.2 g/dL (5.7-8.2)
[2024-03-29 06:03] LABS: Blood Urea Nitrogen 24 mg/dL (9-23)
[2024-03-29] MEDS ORDERED: SODIUM CHL 0.9% 1000 ML BAG XX ONE (07:00)
[2024-03-29 09:04] VITALS: BP 139/72; PULSE 83; RESP 17; TEMP 98.4; O2SAT 94
[2024-03-29] MEDS ORDERED: LIDOCAINE VISCOUS 2% 15ML UD ONE (12:43)
[2024-03-29] MEDS ORDERED: fentaNYL CITRATE 100 MCG/2 ML VL ONE ×2 (12:43→16:47)
[2024-03-29] MEDS ORDERED: MIDAZOLAM HCL 5 MG/ML-1ML VIAL ONE (12:43)
[2024-03-29] MEDS ORDERED: diphenhdrAMINE HCL 50 MG/1 ML VL ONE (12:47)
[2024-03-29 13:05] VITALS: BP 147/96; PULSE 86; RESP 17; TEMP 98.7; O2SAT 98
[2024-03-29] MEDS ORDERED: MIDAZOLAM HCL 2MG/2ML 2ml VIAL (1mg/ml) ONE (16:47)
[2024-03-29] MEDS ORDERED: ONDANSETRON HCL 4 MG/2 ML VIAL IV ONE (17:00)
[2024-03-29 17:23] VITALS: O2SAT 96
[2024-03-29 21:00] VITALS: BP 108/52; PULSE 86; RESP 17; TEMP 97.8; O2SAT 93
[2024-03-29] MEDS: SUCRALFATE 1 GM/10 ML ORAL SUSP PO SCH (21:54)
[2024-03-30 01:00] VITALS: BP 105/57; PULSE 91; RESP 19; TEMP 98.4; O2SAT 93
[2024-03-30 04:59] VITALS: BP 129/64; PULSE 87; RESP 19; TEMP 98.2; O2SAT 93
[2024-03-30 05:48] LABS: Basophils # (auto) 0.1 10 ^3/uL (0-0.2); Basophils % (auto) 0.4 % (0.0-2.0); Eosinophils # (auto) 0.2 10 ^3/uL (0-0.8); Eosinophils % (auto) 1.6 % (0.0-7.0); Hematocrit 32.8 % (36.0-46.0); Hemoglobin 11.3 g/dL (12.2-16.2); Lymphocytes % (auto) 17.4 % (10.0-50.0); Mean Corpuscular Hemoglobin 33.1 pg (28.0-32.0); Mean Corpuscular Hgb Conc. 34.5 g/dL (32.0-36.0); Mean Corpuscular Volume 96.1 fL (80.0-100.0); Monocytes # (auto) 1.1 10 ^3/uL (0-1.3); Monocytes % (auto) 9.8 % (0.0-12.0); Neutrophils % (auto) 70.8 % (37.0-80.0); Red Blood Cells 3.41 10^6/uL (4.0-5.20); Red Cell Distribution Width 15.4 % (11.8-14.3); White Blood Cell 11.4 10^3/uL (4.4-10.8)
[2024-03-30 06:28] LABS: Anion Gap 10 (5-15); Carbon Dioxide 29 mmol/L (20-30); Chloride 98 mmol/L (98-107); Sodium 137 mmol/L (136-145)
[2024-03-30 06:29] LABS: Calcium 9.5 mg/dL (8.5-10.1)
[2024-03-30 06:34] LABS: BUN/Creatinine Ratio 2.5 (10.0-20.0); Blood Urea Nitrogen 15 mg/dL (9-23); Glucose 98 mg/dL (74-106)
[2024-03-30 08:36] VITALS: BP 133/72; PULSE 89; RESP 16; TEMP 98.7; O2SAT 94
[2024-03-30 13:00] VITALS: BP 107/48; PULSE 97; RESP 18; TEMP 97.9; O2SAT 94
[2024-03-30] MEDS ORDERED: PANT40TA2 PO (14:31)
[2024-03-30] MEDS ORDERED: TRAM50TA2 PO (14:31)
[2024-03-30] MEDS ORDERED: SUCR1TAB31 PO (14:31)
[2024-03-30] MEDS ORDERED: LEVO500T91 PO (14:31)
[2024-03-30] MEDS ORDERED: ZOFR4T PO (14:31)
== END 2024-03-30 15:58 | disposition home or self-care (01) | DRG 383 ==
LOC: ER 16:31 → OVERFLOW 03-26 03:30 → CENTRAL 03-26 08:31
PROVIDERS: ADMIT Nurse Practitioner; ATTEND Internal Medicine Geriatric Medicine
PROC: 5A1D70Z Performance of Urinary Filtration, Intermittent, Less than 6 Hours Per Day (ICD-10-PCS; principal; 2024-03-27)
PROC: 0DB98ZX Excision of Duodenum, Via Natural or Artificial Opening Endoscopic, Diagnostic (ICD-10-PCS; 2024-03-29)
PROC: 0DB68ZX Excision of Stomach, Via Natural or Artificial Opening Endoscopic, Diagnostic (ICD-10-PCS; 2024-03-29)
PROC: 5A1D70Z Performance of Urinary Filtration, Intermittent, Less than 6 Hours Per Day (ICD-10-PCS; 2024-03-29)
DX: K25.3 Acute gastric ulcer without hemorrhage or perforation (principal); N18.6 End stage renal disease; N25.81 Secondary hyperparathyroidism of renal origin; N39.0 Urinary tract infection, site not specified; I12.0 Hypertensive chronic kidney disease with stage 5 chronic kidney disease or end stage renal disease; Z68.41 Body mass index [BMI] 40.0-44.9, adult; K29.70 Gastritis, unspecified, without bleeding; K21.9 Gastro-esophageal reflux disease without esophagitis; K44.9 Diaphragmatic hernia without obstruction or gangrene; Z99.2 Dependence on renal dialysis; K82.8 Other specified diseases of gallbladder; E11.22 Type 2 diabetes mellitus with diabetic chronic kidney disease; E66.9 Obesity, unspecified; Z88.8 Allergy status to other drugs, medicaments and biological substances; Z91.041 Radiographic dye allergy status; Z80.7 Family history of other malignant neoplasms of lymphoid, hematopoietic and related tissues; Z80.0 Family history of malignant neoplasm of digestive organs; Z80.8 Family history of malignant neoplasm of other organs or systems; Z80.3 Family history of malignant neoplasm of breast; Z80.1 Family history of malignant neoplasm of trachea, bronchus and lung; Z80.41 Family history of malignant neoplasm of ovary; Z80.42 Family history of malignant neoplasm of prostate; Z83.3 Family history of diabetes mellitus; Z82.3 Family history of stroke; Z82.49 Family history of ischemic heart disease and other diseases of the circulatory system; Z83.42 Family history of familial hypercholesterolemia; Z82.62 Family history of osteoporosis; Z84.1 Family history of disorders of kidney and ureter; Z82.0 Family history of epilepsy and other diseases of the nervous system; Z81.8 Family history of other mental and behavioral disorders; Z82.5 Family history of asthma and other chronic lower respiratory diseases; Z79.4 Long term (current) use of insulin
CPT/HCPCS: 36415; 43239; 74176; 78226; 80048; 80053; 81001; 82962; 83605; 83690; 83735; 84484; 84702; 85025; 85610; 85730; 86706; 86850; 86900; 86901; 87040; 87086; 87340; 90935; 96365; 96375; C9113; G0378; J2250; J2405; J2543; J3490; J7042

== ENCOUNTER 2024-06-26 10:55 | Inpatient (IN) | payer MEDICARE, MEDICAID ==
[~2024-06-26] VITALS: Ht 172.7 cm; Wt 129.0 kg
[~2024-06-26 10:55] MED LIST changes: -CIPR500T4 PO; +LEVO500T91 PO; +PANT40TA2 PO; +SUCR1TAB31 PO; +TRAM50TA2 PO
[2024-06-26] MEDS: TETANUS-DIPTH-ACEL PERTUSSIS 0.5ML SYR Tdap IM ONE (12:00)
[2024-06-26 12:24] LABS: Basophils # (auto) 0 10 ^3/uL (0-0.2); Basophils % (auto) 0.3 % (0.0-2.0); Eosinophils # (auto) 0.1 10 ^3/uL (0-0.8); Eosinophils % (auto) 1.4 % (0.0-7.0); Hematocrit 32.8 % (36.0-46.0); Hemoglobin 11.4 g/dL (12.2-16.2); Lymphocytes # (auto) 1.8 10 ^3/uL (0.4-5.4); Lymphocytes % (auto) 16.9 % (10.0-50.0); Mean Corpuscular Hemoglobin 32.7 pg (28.0-32.0); Mean Corpuscular Hgb Conc. 34.9 g/dL (32.0-36.0); Mean Corpuscular Volume 93.9 fL (80.0-100.0); Monocytes # (auto) 0.9 10 ^3/uL (0-1.3); Monocytes % (auto) 8.5 % (0.0-12.0); Neutrophils # (auto) 7.7 10 ^3/uL (1.6-8.6); Neutrophils % (auto) 72.9 % (37.0-80.0); Red Blood Cells 3.49 10^6/uL (4.0-5.20); Red Cell Distribution Width 14.6 % (11.8-14.3); White Blood Cell 10.5 10^3/uL (4.4-10.8)
[2024-06-26 12:33] LABS: Chloride 95 mmol/L (98-107); Potassium 3.6 mmol/L (3.5-5.1); Sodium 134 mmol/L (136-145)
[2024-06-26 12:34] LABS: Anion Gap 5 (5-15); Carbon Dioxide 34 mmol/L (20-30)
[2024-06-26 12:35] LABS: Calcium 9.3 mg/dL (8.7-10.4)
[2024-06-26] MEDS: MORPHINE SULFATE 4 MG/ML SYR/VIAL IV ONE (12:36)
[2024-06-26] MEDS: PIPERACILLIN-TAZO 4.5GM 100 ML IV ONE (12:37)
[2024-06-26] MEDS: ONDANSETRON HCL 4 MG/2 ML VIAL IV ONE (12:37)
[2024-06-26 12:39] LABS: BUN/Creatinine Ratio 2.6 (10.0-20.0); Blood Urea Nitrogen 10 mg/dL (9-23); Glucose 279 mg/dL (74-106)
[2024-06-26 12:47] LABS: Lactic Acid w/Reflex 2.4 mmol/L (0.4-2.0)
[2024-06-26] MEDS ORDERED: VANCOMYCIN PER PHARMACY 0 MG IV SCH (14:45)
[2024-06-26 15:42] LABS: Erythrocyte Sedimentation Rate 84 mm/hr (0-20)
[2024-06-26] MEDS: VANCOMYCIN 1GM/200ML 200 ML IV ONE (15:51)
[2024-06-26] MEDS: guaiFENesin-DM 100/10mg/5ml SYR PO PRN (19:48)
[2024-06-26] MEDS ORDERED: HYDROcodone-ACET 5/325MG TAB PO PRN (20:15)
[2024-06-26 21:00] VITALS: BP 125/70; PULSE 83; RESP 24; TEMP 97.4; O2SAT 91
[2024-06-26] MEDS: ACCU-CHEK COMFORT CURVE STRIP VI SCH (21:19)
[2024-06-26] MEDS: PIPERACILLIN-TAZOB 2.25GM 50 ML IV SCH (21:20)
[2024-06-26] MEDS: InsuLIN REG 1unit/0.01ml Soln (100units/ml) SC SCH (21:31)
[2024-06-27] VITALS (7 sets, daily range): BP systolic 110–141; BP diastolic 59–83; PULSE 70–81; RESP 18–20; TEMP 97.6–98.9; O2SAT 87–96
[2024-06-27] MEDS ORDERED: VANCOMYCIN 500 MG in D5W 5% 100 ML IV ONE (09:00)
[2024-06-27] MEDS: PANTOPRAZOLE 40 MG/10 ML VIAL INJ IV SCH (09:57)
[2024-06-27 10:00] LABS: Basophils # (auto) 0.1 10 ^3/uL (0-0.2); Basophils % (auto) 0.9 % (0.0-2.0); Eosinophils # (auto) 0.3 10 ^3/uL (0-0.8); Eosinophils % (auto) 2.9 % (0.0-7.0); Hematocrit 31.9 % (36.0-46.0); Lymphocytes # (auto) 2.2 10 ^3/uL (0.4-5.4); Lymphocytes % (auto) 21.9 % (10.0-50.0); Mean Corpuscular Hemoglobin 33.1 pg (28.0-32.0); Mean Corpuscular Hgb Conc. 34.3 g/dL (32.0-36.0); Mean Corpuscular Volume 96.3 fL (80.0-100.0); Monocytes % (auto) 9.9 % (0.0-12.0); Neutrophils # (auto) 6.4 10 ^3/uL (1.6-8.6); Neutrophils % (auto) 64.4 % (37.0-80.0); Nucleated Red Blood Cells % 0.1 %; Red Blood Cells 3.32 10^6/uL (4.0-5.20)
[2024-06-27] MEDS ORDERED: traMADol HCL 50 MG TAB PO PRN (10:00)
[2024-06-27 10:07] LABS: Alanine Aminotransferase 19 U/L (7-40); Albumin 3.7 g/dL (3.2-4.8); Alkaline Phosphatase 81 U/L (46-116); Anion Gap 10 (5-15); Aspartate Aminotransferase < 8 U/L (13-40); BUN/Creatinine Ratio 3.2 (10.0-20.0); Blood Urea Nitrogen 17 mg/dL (9-23); Calcium 8.9 mg/dL (8.7-10.4); Carbon Dioxide 30 mmol/L (20-30); Chloride 96 mmol/L (98-107); Glucose 104 mg/dL (74-106); Potassium 4.1 mmol/L (3.5-5.1); Sodium 136 mmol/L (136-145)
[2024-06-27 10:08] LABS: Bilirubin, Total 0.4 mg/dL (0.2-1.0); Total Protein 7.3 g/dL (5.7-8.2)
[2024-06-27 10:23] LABS: Thyroid Stimulating Hormone 1.74 uIU/mL (0.55-4.78)
[2024-06-27 10:24] LABS: Beta HCG, Quantitative 0.7 mIU/mL (1.5-4.2)
[2024-06-27] MEDS: SUCRALFATE 1 GM TAB PO SCH (11:30)
[2024-06-27] MEDS: VANCOMYCIN 500 MG in D5W 5% 100 ML IV ONE (14:00)
[2024-06-28] MEDS: ONDANSETRON HCL 4 MG/2 ML VIAL IV PRN (04:32)
[2024-06-28] MEDS: PANTOPRAZOLE 40 MG TAB PO ONE (06:16)
[2024-06-28] MEDS: PANTOPRAZOLE 40 MG TAB PO SCH (06:22)
[2024-06-28 08:00] VITALS: PULSE 87; RESP 18; O2SAT 92
[2024-06-28 09:11] VITALS: BP 137/64; PULSE 87; RESP 16; TEMP 98.3; O2SAT 92
[2024-06-28 09:23] LABS: Basophils # (auto) 0.1 10 ^3/uL (0-0.2); Basophils % (auto) 0.8 % (0.0-2.0); Eosinophils # (auto) 0.3 10 ^3/uL (0-0.8); Eosinophils % (auto) 3.9 % (0.0-7.0); Hematocrit 31.9 % (36.0-46.0); Hemoglobin 10.8 g/dL (12.2-16.2); Lymphocytes # (auto) 1.7 10 ^3/uL (0.4-5.4); Lymphocytes % (auto) 21.6 % (10.0-50.0); Mean Corpuscular Hemoglobin 32.4 pg (28.0-32.0); Mean Corpuscular Hgb Conc. 33.8 g/dL (32.0-36.0); Monocytes # (auto) 0.6 10 ^3/uL (0-1.3); Neutrophils # (auto) 5.1 10 ^3/uL (1.6-8.6); Neutrophils % (auto) 65.7 % (37.0-80.0); Red Blood Cells 3.32 10^6/uL (4.0-5.20); White Blood Cell 7.7 10^3/uL (4.4-10.8)
[2024-06-28 09:30] LABS: Anion Gap 8 (5-15); Carbon Dioxide 29 mmol/L (20-30); Chloride 93 mmol/L (98-107); Potassium 4.5 mmol/L (3.5-5.1)
[2024-06-28 09:31] LABS: Calcium 8.7 mg/dL (8.7-10.4)
[2024-06-28 09:36] LABS: BUN/Creatinine Ratio 3.7 (10.0-20.0); Blood Urea Nitrogen 18 mg/dL (9-23)
[2024-06-28 09:39] LABS: Sodium 130 mmol/L (136-145)
[2024-06-28 09:40] LABS: Glucose 504 mg/dL (74-106)
[2024-06-28] MEDS: INSULIN LANTUS (GLARGINE) 1 /0.01ml (100units/ml) SC SCH (10:00)
[2024-06-28] MEDS: VANCOMYCIN 1GM/200ML 200 ML IV ONE (10:34)
[2024-06-28] MEDS: FLORASTOR (S. BOULARDII) 250 MG CAP PO SCH (10:35)
[2024-06-28] MEDS: DEXTROSE (50%) 50ML SYRG IV PRN (10:52)
[2024-06-28 12:59] VITALS: BP 126/71; PULSE 78; RESP 15; TEMP 98.1; O2SAT 90
[2024-06-28] MEDS: BUPIVACAINE 0.25% INJ 50ML VIAL ONE (13:30)
[2024-06-28] MEDS: BUPIVACAINE HCL 50 ML ONE (14:09)
[2024-06-28 16:45] VITALS: BP 145/80; PULSE 86; RESP 17; TEMP 98; O2SAT 92
[2024-06-28] MEDS: Juven Orange Powder PACKET 27.5gm PO SCH (18:00)
[2024-06-28 20:00] VITALS: PULSE 88; RESP 22; O2SAT 92
[2024-06-28 21:00] VITALS: BP 127/67; PULSE 88; RESP 22; TEMP 98; O2SAT 92
[2024-06-28] MEDS: DOCUSATE SOD 100 MG CAP PO ONE (21:26)
[2024-06-28] MEDS: ACCU-CHEK COMFORT CURVE STRIP VI ONE (21:27)
[2024-06-29] VITALS (7 sets, daily range): BP systolic 112–158; BP diastolic 48–90; PULSE 79–92; RESP 18–22; TEMP 97.7–98.5; O2SAT 92–96
[2024-06-29 05:51] LABS: Hematocrit 32.4 % (36.0-46.0); Hemoglobin 11.3 g/dL (12.2-16.2)
[2024-06-29] MEDS: SODIUM CHL 0.9% 1000 ML BAG XX ONE (07:00)
[2024-06-29 07:01] LABS: % Iron Saturation 23.4 % (15-50)
[2024-06-29 07:28] LABS: Rapid Strep A Screen-Throat Negative
[2024-06-29] MEDS: ceFAZolin 1GM/50ML 50 ML IV SCH (13:28)
[2024-06-29] MEDS: traMADol HCL 50 MG TAB PO PRN (16:19)
[2024-06-29] MEDS ORDERED: EPOETIN ALFA-EPBX 10,000 UNIT/1ML VIAL SC ONE (21:00)
[2024-06-29] MEDS ORDERED: ACETAMINOPHEN 325 MG TAB PO PRN (21:30)
[2024-06-30] VITALS (7 sets, daily range): BP systolic 129–144; BP diastolic 71–75; PULSE 79–88; RESP 17–22; TEMP 97.7–98.3; O2SAT 92–98
[2024-06-30 07:57] LABS: Basophils # (auto) 0.1 10 ^3/uL (0-0.2); Basophils % (auto) 1.1 % (0.0-2.0); Eosinophils # (auto) 0.4 10 ^3/uL (0-0.8); Eosinophils % (auto) 3.8 % (0.0-7.0); Hematocrit 32.9 % (36.0-46.0); Hemoglobin 11.5 g/dL (12.2-16.2); Lymphocytes # (auto) 2.2 10 ^3/uL (0.4-5.4); Lymphocytes % (auto) 22.8 % (10.0-50.0); Mean Corpuscular Hemoglobin 32.5 pg (28.0-32.0); Mean Corpuscular Hgb Conc. 34.9 g/dL (32.0-36.0); Mean Corpuscular Volume 93.4 fL (80.0-100.0); Monocytes # (auto) 0.8 10 ^3/uL (0-1.3); Monocytes % (auto) 8.6 % (0.0-12.0); Neutrophils # (auto) 6.2 10 ^3/uL (1.6-8.6); Neutrophils % (auto) 63.7 % (37.0-80.0); Red Blood Cells 3.53 10^6/uL (4.0-5.20); Red Cell Distribution Width 14.7 % (11.8-14.3); White Blood Cell 9.7 10^3/uL (4.4-10.8)
[2024-06-30 08:22] LABS: Alanine Aminotransferase 20 U/L (7-40); Alkaline Phosphatase 98 U/L (46-116); Anion Gap 9 (5-15); BUN/Creatinine Ratio 4.3 (10.0-20.0); Blood Urea Nitrogen 27 mg/dL (9-23); Calcium 9.6 mg/dL (8.7-10.4); Carbon Dioxide 30 mmol/L (20-30); Chloride 97 mmol/L (98-107); Glucose 111 mg/dL (74-106)
[2024-06-30 08:23] LABS: Aspartate Aminotransferase 12 U/L (13-40); Bilirubin, Total 0.3 mg/dL (0.2-1.0); Total Protein 7.8 g/dL (5.7-8.2)
[2024-06-30 08:27] LABS: Sodium 136 mmol/L (136-145)
[2024-06-30] MEDS ORDERED: THROAT LOZENGES(CEPASTAT) MT PRN (11:30)
[2024-06-30] MEDS: ONDANSETRON HCL 4 MG/2 ML VIAL IV PRN (18:19)
[2024-07-01] VITALS (8 sets, daily range): BP systolic 126–175; BP diastolic 64–97; PULSE 68–94; RESP 16–22; TEMP 97.6–98.5; O2SAT 91–95
[2024-07-01 05:11] LABS: Basophils # (auto) 0.1 10 ^3/uL (0-0.2); Basophils % (auto) 0.9 % (0.0-2.0); Eosinophils # (auto) 0.3 10 ^3/uL (0-0.8); Eosinophils % (auto) 3.4 % (0.0-7.0); Hematocrit 30.6 % (36.0-46.0); Hemoglobin 10.6 g/dL (12.2-16.2); Lymphocytes # (auto) 1.7 10 ^3/uL (0.4-5.4); Lymphocytes % (auto) 17.7 % (10.0-50.0); Mean Corpuscular Hemoglobin 33.1 pg (28.0-32.0); Mean Corpuscular Hgb Conc. 34.8 g/dL (32.0-36.0); Mean Corpuscular Volume 95.1 fL (80.0-100.0); Monocytes # (auto) 0.7 10 ^3/uL (0-1.3); Monocytes % (auto) 7.2 % (0.0-12.0); Neutrophils % (auto) 70.8 % (37.0-80.0); Red Blood Cells 3.22 10^6/uL (4.0-5.20); Red Cell Distribution Width 14.5 % (11.8-14.3); White Blood Cell 9.8 10^3/uL (4.4-10.8)
[2024-07-01 05:27] LABS: INR 1.03 (0.9-1.15); Prothrombin Time 10.9 sec (9.3-11.8)
[2024-07-01 05:40] LABS: Chloride 94 mmol/L (98-107); Potassium 4.1 mmol/L (3.5-5.1)
[2024-07-01 05:41] LABS: Anion Gap 11 (5-15); Calcium 9.1 mg/dL (8.7-10.4); Carbon Dioxide 25 mmol/L (20-30)
[2024-07-01 05:46] LABS: BUN/Creatinine Ratio 4.7 (10.0-20.0)
[2024-07-01 05:51] LABS: Blood Urea Nitrogen 37 mg/dL (9-23); Sodium 130 mmol/L (136-145)
[2024-07-01 05:52] LABS: Glucose 450 mg/dL (74-106)
[2024-07-01] MEDS ORDERED: DEXTROSE (50%) 50ML SYRG IV PRN (06:00)
[2024-07-01] MEDS: InsuLIN REG 1unit/0.01ml Soln (100units/ml) SC SCH (06:00)
[2024-07-01] MEDS: ACCU-CHEK COMFORT CURVE STRIP VI SCH (06:16)
[2024-07-01] MEDS: SODIUM CHL 0.9% 1000 ML BAG XX ONE (07:00)
[2024-07-01] MEDS: ceFAZolin 2 GM/D5W50ml 50 ML IV ONE (10:43)
[2024-07-01] MEDS: BUPIVACAINE 0.5% P/F INJ 10 ML VIAL ONE (10:48)
[2024-07-01] MEDS: traMADol HCL 50 MG TAB PO PRN (16:21)
[2024-07-01] MEDS: EPOETIN ALFA-EPBX 4,000 UNIT/ML VIAL SC ONE (21:18)
[2024-07-02] VITALS (9 sets, daily range): BP systolic 100–148; BP diastolic 51–77; PULSE 69–86; RESP 15–21; TEMP 98.2–98.8; O2SAT 91–97
[2024-07-02 06:39] LABS: Basophils # (auto) 0.1 10 ^3/uL (0-0.2); Basophils % (auto) 0.7 % (0.0-2.0); Chloride 97 mmol/L (98-107); Eosinophils # (auto) 0.3 10 ^3/uL (0-0.8); Eosinophils % (auto) 3.8 % (0.0-7.0); Hematocrit 30.1 % (36.0-46.0); Hemoglobin 10.4 g/dL (12.2-16.2); Lymphocytes # (auto) 2.1 10 ^3/uL (0.4-5.4); Lymphocytes % (auto) 22.5 % (10.0-50.0); Mean Corpuscular Hemoglobin 32.2 pg (28.0-32.0); Mean Corpuscular Hgb Conc. 34.6 g/dL (32.0-36.0); Mean Corpuscular Volume 93.1 fL (80.0-100.0); Monocytes # (auto) 0.9 10 ^3/uL (0-1.3); Monocytes % (auto) 9.4 % (0.0-12.0); Neutrophils # (auto) 5.9 10 ^3/uL (1.6-8.6); Neutrophils % (auto) 63.6 % (37.0-80.0); Nucleated Red Blood Cells % 0.1 %; Potassium 3.6 mmol/L (3.5-5.1); Red Blood Cells 3.24 10^6/uL (4.0-5.20); Red Cell Distribution Width 14.4 % (11.8-14.3); Sodium 136 mmol/L (136-145); White Blood Cell 9.2 10^3/uL (4.4-10.8)
[2024-07-02 06:40] LABS: Anion Gap 7 (5-15); Carbon Dioxide 32 mmol/L (20-30)
[2024-07-02 06:41] LABS: Calcium 9.3 mg/dL (8.7-10.4)
[2024-07-02 06:46] LABS: BUN/Creatinine Ratio 4.9 (10.0-20.0); Blood Urea Nitrogen 30 mg/dL (9-23); Glucose 147 mg/dL (74-106)
[2024-07-02] MEDS ORDERED: PROCHLORPERAZINE EDISYLATE 5 MG/ML 2ML VIAL IV ONE (08:45)
[2024-07-03 05:00] VITALS: BP 138/78; PULSE 84; RESP 18; TEMP 98.4; O2SAT 92
[2024-07-03] MEDS ORDERED: SODIUM CHL 0.9% 1000 ML BAG XX ONE (07:00)
[2024-07-03 08:00] VITALS: PULSE 75; RESP 16; O2SAT 95
[2024-07-03] MEDS ORDERED: ceFAZolin 2 GM/D5W50ml 50 ML IV ONE (10:16)
[2024-07-03] MEDS ORDERED: CHLORHEXIDINE 4% TOPICAL soln 118ml TOP ONE (11:22)
[2024-07-03] MEDS: BUPIVACAINE 0.5% P/F INJ 10 ML VIAL ONE (11:32)
[2024-07-03 13:00] VITALS: BP 153/81; PULSE 82; RESP 17; TEMP 98.2; O2SAT 93
[2024-07-03 15:44] LABS: Basophils # (auto) 0.1 10 ^3/uL (0-0.2); Basophils % (auto) 0.8 % (0.0-2.0); Eosinophils # (auto) 0.3 10 ^3/uL (0-0.8); Eosinophils % (auto) 3.8 % (0.0-7.0); Hematocrit 30.7 % (36.0-46.0); Hemoglobin 10.8 g/dL (12.2-16.2); Lymphocytes # (auto) 1.8 10 ^3/uL (0.4-5.4); Lymphocytes % (auto) 19.5 % (10.0-50.0); Mean Corpuscular Hemoglobin 32.7 pg (28.0-32.0); Mean Corpuscular Hgb Conc. 35.2 g/dL (32.0-36.0); Mean Corpuscular Volume 92.8 fL (80.0-100.0); Monocytes # (auto) 0.7 10 ^3/uL (0-1.3); Monocytes % (auto) 7.4 % (0.0-12.0); Neutrophils # (auto) 6.2 10 ^3/uL (1.6-8.6); Neutrophils % (auto) 68.5 % (37.0-80.0); Nucleated Red Blood Cells % 0.2 %; Red Blood Cells 3.31 10^6/uL (4.0-5.20); Red Cell Distribution Width 14.7 % (11.8-14.3)
[2024-07-03 17:00] VITALS: BP 183/98; PULSE 84; RESP 16; TEMP 98.3; O2SAT 95
[2024-07-03 20:00] VITALS: PULSE 86; RESP 17; O2SAT 95
[2024-07-03 20:35] LABS: Anion Gap 11 (5-15); Carbon Dioxide 28 mmol/L (20-30); Chloride 99 mmol/L (98-107); Potassium 3.3 mmol/L (3.5-5.1); Sodium 138 mmol/L (136-145)
[2024-07-03 20:36] LABS: Calcium 9.7 mg/dL (8.7-10.4)
[2024-07-03 20:41] LABS: BUN/Creatinine Ratio 3.5 (10.0-20.0); Blood Urea Nitrogen 19 mg/dL (9-23); Glucose 213 mg/dL (74-106)
[2024-07-03 21:00] VITALS: BP 137/68; PULSE 86; RESP 17; TEMP 98.5; O2SAT 95
[2024-07-03] MEDS: EPOETIN ALFA-EPBX 4,000 UNIT/ML VIAL SC ONE (23:00)
[2024-07-04 05:00] VITALS: BP 127/77; PULSE 77; RESP 17; TEMP 98.3; O2SAT 93
[2024-07-04 08:00] VITALS: PULSE 86; RESP 17; O2SAT 95
[2024-07-04 09:00] VITALS: BP 126/66; PULSE 86; RESP 18; TEMP 98.1; O2SAT 91
[2024-07-04 11:05] LABS: Basophils # (auto) 0.1 10 ^3/uL (0-0.2); Basophils % (auto) 0.8 % (0.0-2.0); Eosinophils # (auto) 0.4 10 ^3/uL (0-0.8); Eosinophils % (auto) 4.2 % (0.0-7.0); Hematocrit 32.1 % (36.0-46.0); Hemoglobin 11.2 g/dL (12.2-16.2); Mean Corpuscular Hemoglobin 32.8 pg (28.0-32.0); Mean Corpuscular Hgb Conc. 34.8 g/dL (32.0-36.0); Mean Corpuscular Volume 94.1 fL (80.0-100.0); Monocytes # (auto) 0.8 10 ^3/uL (0-1.3); Monocytes % (auto) 8.2 % (0.0-12.0); Neutrophils # (auto) 6.3 10 ^3/uL (1.6-8.6); Neutrophils % (auto) 65.8 % (37.0-80.0); Red Blood Cells 3.41 10^6/uL (4.0-5.20); Red Cell Distribution Width 14.6 % (11.8-14.3); White Blood Cell 9.6 10^3/uL (4.4-10.8)
[2024-07-04 11:25] LABS: Anion Gap 9 (5-15); Calcium 9.3 mg/dL (8.7-10.4); Carbon Dioxide 28 mmol/L (20-30); Chloride 99 mmol/L (98-107); Sodium 136 mmol/L (136-145)
[2024-07-04] MEDS: POTASSIUM EFFERVESENT TAB 25 MEQ PO ONE (11:26)
[2024-07-04 11:30] LABS: BUN/Creatinine Ratio 4.2 (10.0-20.0); Blood Urea Nitrogen 27 mg/dL (9-23); Glucose 176 mg/dL (74-106)
[2024-07-04 13:00] VITALS: BP 121/61; PULSE 80; RESP 20; TEMP 98.1; O2SAT 94
[2024-07-04] MEDS ORDERED: ONDA-188 PO (14:53)
[2024-07-04] MEDS ORDERED: HYDR-4902 PO (14:53)
[2024-07-04 16:00] VITALS: BP 151/84; PULSE 90; RESP 20; TEMP 98.5; O2SAT 93
[2024-07-04 16:41] VITALS: TEMP 36.7
[2024-07-27] MEDS ORDERED: FLORASTOR (S. BOULARDII) 250 MG CAP PO SCH (22:00)
== END 2024-07-04 17:50 | disposition home health service (06) | DRG 573 ==
LOC: ER 10:55 → OVERFLOW 14:18 → WEST WING 17:16
PROVIDERS: ADMIT Internal Medicine; ATTEND Internal Medicine
PROC: 5A1D70Z Performance of Urinary Filtration, Intermittent, Less than 6 Hours Per Day (ICD-10-PCS; 2024-06-27)
PROC: 0Y9N0ZZ Drainage of Left Foot, Open Approach (ICD-10-PCS; 2024-06-28)
PROC: 5A1D70Z Performance of Urinary Filtration, Intermittent, Less than 6 Hours Per Day (ICD-10-PCS; principal; 2024-06-29)
PROC: 5A1D70Z Performance of Urinary Filtration, Intermittent, Less than 6 Hours Per Day (ICD-10-PCS; 2024-07-01)
PROC: 0Y9N0ZZ Drainage of Left Foot, Open Approach (ICD-10-PCS; 2024-07-01)
PROC: 5A1D70Z Performance of Urinary Filtration, Intermittent, Less than 6 Hours Per Day (ICD-10-PCS; 2024-07-03)
PROC: 0HXNXZZ Transfer Left Foot Skin, External Approach (ICD-10-PCS; 2024-07-03)
PROC: 0JBR0ZZ Excision of Left Foot Subcutaneous Tissue and Fascia, Open Approach (ICD-10-PCS; 2024-07-03)
DX: L03.116 Cellulitis of left lower limb (principal); N18.6 End stage renal disease; I12.0 Hypertensive chronic kidney disease with stage 5 chronic kidney disease or end stage renal disease; Z68.41 Body mass index [BMI] 40.0-44.9, adult; L02.612 Cutaneous abscess of left foot; E10.621 Type 1 diabetes mellitus with foot ulcer; E10.22 Type 1 diabetes mellitus with diabetic chronic kidney disease; E10.43 Type 1 diabetes mellitus with diabetic autonomic (poly)neuropathy; E66.01 Morbid (severe) obesity due to excess calories; K29.70 Gastritis, unspecified, without bleeding; D63.1 Anemia in chronic kidney disease; K59.00 Constipation, unspecified; M14.672 Charcot's joint, left ankle and foot; L97.529 Non-pressure chronic ulcer of other part of left foot with unspecified severity; K21.9 Gastro-esophageal reflux disease without esophagitis; E88.810 Metabolic syndrome; E78.5 Hyperlipidemia, unspecified; Z99.2 Dependence on renal dialysis; Z83.3 Family history of diabetes mellitus; Z82.62 Family history of osteoporosis; Z82.5 Family history of asthma and other chronic lower respiratory diseases; Z82.49 Family history of ischemic heart disease and other diseases of the circulatory system; Z82.3 Family history of stroke; Z82.0 Family history of epilepsy and other diseases of the nervous system; Z81.8 Family history of other mental and behavioral disorders; Z80.8 Family history of malignant neoplasm of other organs or systems; Z80.7 Family history of other malignant neoplasms of lymphoid, hematopoietic and related tissues; Z80.41 Family history of malignant neoplasm of ovary; Z80.3 Family history of malignant neoplasm of breast; Z80.0 Family history of malignant neoplasm of digestive organs; Z79.4 Long term (current) use of insulin; Z80.1 Family history of malignant neoplasm of trachea, bronchus and lung
CPT/HCPCS: 36415; 73630; 73718; 80048; 80053; 80202; 82565; 82728; 82962; 83036; 83540; 83550; 83605; 84443; 84702; 85014; 85018; 85025; 85379; 85610; 85652; 85730; 86141; 87040; 87070; 87075; 87077; 87186; 87205; 87340; 87880; 90471; 90715; 90935; 96365; 96375; G0378; J2405; J2470; J2543; J3490; J7060

== ENCOUNTER 2025-03-10 15:57 | Inpatient (IN) | payer MEDICARE, MEDICAID ==
[~2025-03-10] VITALS: Ht 172.7 cm; Wt 131.1 kg
[~2025-03-10 15:57] MED LIST changes: +HYDR-4902 PO; +ONDA-188 PO
--- NOTE | 2025-03-10 17:08 | ED.PDOC ---
History of Present Illness(SKN HPI Comments HPI: 40 y.o female sent by weir fisherman Dr. Hsu today for surgical intervention admit. Patient reports left foot wound abscess, insicion and drainage on june 2024, since has had weekly check ups with weir fisherman. Patient reports developing bump to the wound site, had a needle inserted to aspirate the fluid but patient reports bump reappeared. Patient today had her weekly check in and weir fisherman noticed wound site appeared infected, red, swollen and with pus and bleeding discharge. Since patient has neuropathy, no sever pain but does note discomfort. Patient Wound is localized to the left forefoot lateral aspect which appears red, swollen and has an ulcer. Patient denies any fever, chills, and antibiotic use. patient had wound cleaned and wrapped at weir fisherman office prior to sending her to the ED. Vitals Temperature: 97.9 F Respiratory rate: 16 SpO2: 97% RA Heart rate: 84 Blood pressure: 123/73 Past Medical History: DM 1, ESRD on dialysis M,W,F, neuropathy, PUD Past Surgical History: EGD, insertion and drainage abscess to the left foot, peritoneal catheter inserted +removed, Heart catheter inserted + Removed, Left forearm catheter inserted + removed, current left upper arm fistula for dialysis HPI: Poor Historian. REVIEW OF SYSTEMS: CONSTITUTIONAL: Denies acute: fever, diaphoresis, chills, generalized weakness. HEAD: Denies acute: headache, photophobia Eyes: Denies acute: Double vision, vision loss, eye pain, eye discharge. EARS: Denies acute: tinnitus, hearing loss, ear discharge, ear pain, THROAT: Denies acute: sore throat, swelling, difficulty swallowing , pain with swallowing, change in voice. NECK: Denies acute: neck pain, neck swelling, stiff neck. HEART: Denies acute : chest pain, palpitations, LUNGS: Denies acute: SOB, wheezing, cough, hemoptysis ABDOMEN: Denies acute: abdominal pain, Nausea, Vomiting, diarrhea, melena , hematemesis, hematochezia SKIN: Denies acute: rash, redness, lesions, itchiness. EXTREMITIES: Denies acute: calf pain, numbness, tingling, weakness, Denies acute: Low back pain. Neuro: Denies acute: focal neurological deficit, motor or sensory focal neurological deficit, tremors, seizure like activity, confusion, dizziness, change in mental status, loss of bowel or bladder function, cauda equina like symptoms. : Denies acute: dysuria, hematuria, flank pain, increase in urinary frequency. PSYCH: Denies acute: hallucination, suicidal ideation, homicidal ideation. FEMALE: Denies acute: abnormal vaginal bleeding, foul odor, unusual discharge. PHYSICAL EXAM: General: ----[id number]----acute distress, awake and alert. Head: normocephalic, atraumatic. Neck: supple, trachea is midline, no swelling. Throat: Normal phonation. Eyes:, no erythema, no purulent discharge, no proptosis, no icterus. Heart: regular rate, regular rhythm, no significant murmur appreciated. Lungs: no apparent respiratory distress, Able to speak in full sentences. No wheezing, no rhonchi, no crackles. No stridors Clear to auscultation bilaterally. Abdomen: non tender to palpation, non distended, soft, no guarding, no rebound, + bowel sounds. Neuro: Awake, Alert, oriented to name, self, situation, follows commands GCS=15. Speech is normal. Skin: no petechia, no purpura, no cyanosis, non-pale, not jaundice. Evaluation of the area of complaint left foot: Noted left foot swelling and erythema with a noted ulcer at the bottom plantar aspect of the forefoot without apparent purulent discharge. Patient is neurovascularly intact in the affected extremity. Pedal pulses palpable. Sensory and motor are present. Makes eye contact. moves all four extremities. Face: no apparent facial droop. Pedal pulses are palpable. ED COURSE: Chief Complaint: Wound Check Time Seen by MD: 16:41 Primary Care Provider: unknown History of Present Illness: Nurses Notes, Allergies Allergies: Coded Allergies: Metformin (Verified Allergy, Severe, 03/31/14) Hydralazine (Verified Allergy, Unknown, 06/13/22) Povidone Iodine (Verified Allergy, Unknown, 06/13/22) Home Meds Active Scripts Hydrocodone-Acetaminophen (Hydrocodone Bitartrate/AC 5-325 mg) 1 Tab Tab, 1 TAB PO TIDP PRN for 7 Days, #21 TAB Prov:ALEXANDRIA NESLON MD 07/04/24 Ondansetron HCl (Ondansetron Hydrochloride) 4 Mg Tab, 4 MG PO TIDP PRN for 8 Days, #24 TAB Prov:ALEXANDRIA NELSON MD 07/04/24 Tramadol Hcl (Tramadol Hcl) 50 Mg Tab, 50 MG PO Q6HP PRN, #20 TAB Prov:RYAN HENRY MD 03/30/24 Levofloxacin Hemihydrate (LEVAQUIN 500 MG) 500 Mg Tab, 1 TAB PO DAILY, #7 TAB Prov:RYAN HENRY MD 03/30/24 Sucralfate (CARAFATE) 1 Gm Tab, 1 GM PO Q6HP, #120 TAB 5 Refills Prov:RYAN HENRY MD 03/30/24 Pantoprazole Sodium Sesquihydr (Protonix) 40 Mg Tab, 40 MG PO DAILY, #30 TAB 5 Refills Prov:RYAN HENRY MD 03/30/24 Ondansetron Odt 4MG Tab (ZOFRAN PO) 4 Mg Tb, 4 MG PO Q4HP PRN, #30 TAB ODT TAB-DISSOLVE IN MOUTH, THEN SWALLOW Prov:RYAN HENRY MD 03/30/24 Information Source: Patient Mode of Arrival: Wheelchair Past Medical History PAST MEDICAL HISTORY: DM, ESRD, HTN Surgical History (Other): multiple fistuals inserted and removal GROUP SEGMENT CONSULTANT History: No Pertinent GROUP SEGMENT CONSULTANT History Family History Family History: No family hx of Cancer, No family hx of DM, No family hx of Heart yashira, No family hx of HTN, No family hx of Stroke, Unobtainable Social History Smoker: Non-Smoker Alcohol: Denies ETOH Use Drugs: Denies Drug Use Lives In: Home Was a procedure done? Was a procedure done?: No Differential Diagnosis (INTG) Differential Diagnosis: Abscess, Cellulitis, Erythema multiforme, Gangrene, Osteomyelitis, Other (Leg swellingDdx include but not limited to DVT, ischemic limb, pitting edema, volume overload, CHF, cellulitis, hematoma, compartment syndrome, dependent edema, venous stasis.) Abscess: Abscess, Bacteremia, Gas Gangrene X-Ray, Labs, Meds, VS Vital Signs Date Time Temp Pulse Resp B/P (MAP) Pulse Ox O2 Delivery O2 Flow Rate FiO2 03/10/25 22:05 85 17 97 Room Air* 0 21 03/10/25 22:03 98.6 85 22 129/73 (91) 97 98.6 03/10/25 16:21 97.9 84 16 123/73 (90) 97 97.9 Lab Test 03/10/25 17:55 03/10/25 17:39 Range/Units Lactic Acid Level 1.8 0.4-2.0 mmol/L White Blood Count 9.8 4.4-10.8 10^3/uL Red Blood Count 4.04 4.0-5.20 10^6/uL Hemoglobin 13.4 12.2-16.2 g/dL Hematocrit 39.3 36.0-46.0 % Mean Corpuscular Volume 97.3 80.0-100.0 fL Mean Corpuscular Hemoglobin 33.3 H 28.0-32.0 pg Mean Corpuscular Hemoglobin Concent 34.2 32.0-36.0 g/dL Red Cell Distribution Width 15.3 H 11.8-14.3 % Platelet Count 430 140-450 10^3/uL Mean Platelet Volume 6.4 L 6.9-10.8 fL Neutrophils (%) (Auto) 63.9 37.0-80.0 % Lymphocytes (%) (Auto) 23.3 10.0-50.0 % Monocytes (%) (Auto) 10.6 0.0-12.0 % Eosinophils (%) (Auto) 1.7 0.0-7.0 % Basophils (%) (Auto) 0.5 0.0-2.0 % Neutrophils # (Auto) 6.2 1.6-8.6 10 ^3/uL Lymphocytes # (Auto) 2.3 0.4-5.4 10 ^3/uL Monocytes # (Auto) 1.0 0-1.3 10 ^3/uL Eosinophils # (Auto) 0.2 0-0.8 10 ^3/uL Basophils # (Auto) 0.1 0-0.2 10 ^3/uL Nucleated Red Blood Cells 0.1 % Erythrocyte Sedimentation Rate 64 H 0-20 mm/hr Sodium Level 134 L 136-145 mmol/L Potassium Level 3.9 3.5-5.1 mmol/L Chloride Level 92 L 98-107 mmol/L Carbon Dioxide Level 32 H 20-31 mmol/L Anion Gap 10 5-15 Blood Urea Nitrogen 21 9-23 mg/dL Creatinine 6.11 H 0.550-1.02 mg/dL Glomerular Filtration Rate Calc 8 >90 mL/min BUN/Creatinine Ratio 3.4 L 10.0-20.0 Serum Glucose 194 H 74-106 mg/dL Calcium Level 10.0 8.7-10.4 mg/dL Total Bilirubin 0.3 0.2-1.0 mg/dL Aspartate Amino Transferase (AST) 19 13-40 U/L Alanine Aminotransferase (ALT) 36 7-40 U/L Alkaline Phosphatase 116 46-116 U/L C-Reactive Protein High Sensitivity 3.11 H <1.0 mg/dL Total Protein 8.1 5.7-8.2 g/dL Albumin 4.5 3.2-4.8 g/dL Current Medications Medications (Trade) Dose Ordered Sig/Alexis Route Start Time Stop Time Status Last Admin Vancomycin HCl 250 ml @ 250 mls/hr ONCE ONCE IV 03/10/25 16:45 03/10/25 17:44 DC 03/10/25 22:10 Piperacillin Sod/ Tazobactam Sod 100 ml @ 100 mls/hr ONCE ONCE IV 03/10/25 16:45 03/10/25 17:44 DC 03/10/25 21:00 [place] [id number] Ph: [phone] DIAGNOSTIC IMAGING Diagnostic Imaging Report : [id number] Signed PATIENT: HESHAM NUNES ACCT: [id number] UNIT: [id number] : 1985 LOC: ER ROOM / BED: / AGE / SEX: 40 / F ADM STATUS: REG ER SERVICE 1645 ORDERING PHYSICIAN: WILFREDO LEZAMA DO PROCEDURE(s): LFTCT - CT L FOOT WO CONTRAST REASON: diabetic wound ORDER NUMBER(s): [id number], ACCESSION NUMBER(s): [id number] INDICATION: diabetic wound COMPARISON: MRI MRI L FOOT WO CONTRAST on DOS: 06/28/24, MRI MRI L FOOT WO CONTRAST on DOS: 09/12/23 TECHNIQUE: CT of the right was performed without contrast. Volume transverse images were obtained and reconstructed in multiple planes using bone and soft tissue algorithms. CONTRAST: None Radiation Dose Information: CT Dose: CTDI volume is 7.75 mGy. Dose-length product is 218.63 mGy*cm FINDINGS: The alignment is normal. There is a 4.5 x 4.5 cm soft tissue mass around the metatarsal phalangeal joint. Most likely representing infection. Can not exclude osteomyelitis. There is no fracture, dislocation, or focal osseous lesions. The soft tissues are normal. IMPRESSION: 1. Soft tissue swelling over the distal metatarsal phalangeal joint toe. 2. Areas osteoporotic changes of the distal 5th metatarsal and proximal phalanx. Can not exclude osteomyelitis. Osteomyelitis May involve bony structures with minimal changes visualized by CT if more specific localization of the infection involvement is of clinical concern recommend MRI. 3. All CT scans at this medical facility are performed using dose modulation techniques as appropriate to a performed exam including the following: Automated exposure control was utilized; adjustment of the MA and/or KV according to patient size; and use of iterative reconstruction technique. ATED BY: CHAYA RODRIGUEZ Jr., DO DICTATED DATE/TIME: 03/10/251808 SIGNED BY: CHAYA RODRIGUEZ Jr., SIGNED DATE/TIME: 03/10/251808 CC: Time of 1ST Reevaluation: 16:59 Reevaluation 1ST: Unchanged Patient Education/Counseling: Diagnosis, Treatment Family Education/Counseling: No Family Present Comments Sepsis protocol was initiated. Conservative fluid resuscitation was observed given the patient kidney failure status on dialysis. Patient presented with the above HPI.---diabetic foot ulcer---workup was initiated. patient was found with the above mentioned diagnosis. the following medications were ordered: please refer to order lists of meds and tests obtained by myself Dr. Lezama. Patient ED course and VS have been stabilized. Patient has been reassessed in the ED and remained in a stable condition. Pertinent incidental findings were discussed with the patient and/or family. Patient/family voices understanding and is agreeable with plan. Patient has been observed in the ED adequate length of time to insure improvement/stability. Escalation of care considered: Consideration of escalation to observation or admission Patient was ADMITTED to the medicine team for further evaluation and treatment of their presentation. All the reports of any imaging studies that were ordered by myself were reviewed by myself. Departure 1 Departure Time of Disposition: 17:18 Impression: Primary Impression: Diabetic foot ulcer Disposition: ADMITTED INPATIENT Admit to: Tele Condition: Guarded Discharged With: Self Critical Care Note Critical Care Time?: Yes (35 min-critical care time only) I personally scribed for WILFREDO LEZAMA DO ([email or web address]) on 03/10/25 at 17:08. Electronically submitted by Ariadne Christiansen ([facility]). WILFREDO LEZAMA DO Mar 10, 2025 17:08
--- NOTE | 2025-03-10 17:45 | DVH ---
CHEST RADIOGRAPH Indication: Diabetic foot Technique: Single frontal view of the chest was obtained Comparison: XY CHEST PORTABLE on DOS: 01/04/24, XY CHEST XRAY 1 VIEW on DOS: 09/10/23, CXRP on DOS: 11/27 06/18 FINDINGS: Lines and Tubes: None Lungs: No focal consolidation. Pleura: No effusion. No pneumothorax. Cardiomediastinal contours: Unremarkable Bones: No acute osseous abnormality. IMPRESSION: No acute cardiopulmonary disease.
[2025-03-10 18:05] LABS: Basophils # (auto) 0.1 10 ^3/uL (0-0.2); Basophils % (auto) 0.5 % (0.0-2.0); Eosinophils # (auto) 0.2 10 ^3/uL (0-0.8); Eosinophils % (auto) 1.7 % (0.0-7.0); Hematocrit 39.3 % (36.0-46.0); Hemoglobin 13.4 g/dL (12.2-16.2); Lymphocytes # (auto) 2.3 10 ^3/uL (0.4-5.4); Lymphocytes % (auto) 23.3 % (10.0-50.0); Mean Corpuscular Hemoglobin 33.3 pg (28.0-32.0); Mean Corpuscular Hgb Conc. 34.2 g/dL (32.0-36.0); Mean Corpuscular Volume 97.3 fL (80.0-100.0); Monocytes % (auto) 10.6 % (0.0-12.0); Neutrophils # (auto) 6.2 10 ^3/uL (1.6-8.6); Neutrophils % (auto) 63.9 % (37.0-80.0); Nucleated Red Blood Cells % 0.1 %; Platelet Count (auto) 430 10^3/uL (140-450); Red Blood Cells 4.04 10^6/uL (4.0-5.20); Red Cell Distribution Width 15.3 % (11.8-14.3); White Blood Cell 9.8 10^3/uL (4.4-10.8)
--- NOTE | 2025-03-10 18:11 | DVH ---
INDICATION: diabetic wound COMPARISON: MRI MRI L FOOT WO CONTRAST on DOS: 06/28/24, MRI MRI L FOOT WO CONTRAST on DOS: 09/12/23 TECHNIQUE: CT of the right was performed without contrast. Volume transverse images were obtained and reconstructed in multiple planes using bone and soft tissue algorithms. CONTRAST: None Radiation Dose Information: CT Dose: CTDI volume is 7.75 mGy. Dose-length product is 218.63 mGy*cm FINDINGS: The alignment is normal. There is a 4.5 x 4.5 cm soft tissue mass around the metatarsal phalangeal joint. Most likely represe nting infection. Can not exclude osteomyelitis. There is no fracture, dislocation, or focal osseous lesions. The soft tissues are normal. IMPRESSION: 1. Soft tissue swelling over the distal metatarsal phalangeal joint toe. 2. Areas osteoporotic changes of the distal 5th metatarsal and proximal phalanx. Can not exclude ost eomyelitis. Osteomyelitis May involve bony structures with minimal changes visualized by CT if more s pecific localization of the infection involvement is of clinical concern recommend MRI. 3. All CT scans at this medical facility are performed using dose modulation techniques as appropriat e to a performed exam including the following: Automated exposure control was utilized; adjustment of the MA and/or KV according to patient size; and use of iterative reconstruction technique.
[2025-03-10 18:20] LABS: Alanine Aminotransferase 36 U/L (7-40); Albumin 4.5 g/dL (3.2-4.8); Anion Gap 10 (5-15); Aspartate Aminotransferase 19 U/L (13-40); BUN/Creatinine Ratio 3.4 (10.0-20.0); Blood Urea Nitrogen 21 mg/dL (9-23); Potassium 3.9 mmol/L (3.5-5.1); Total Protein 8.1 g/dL (5.7-8.2)
[2025-03-10 18:31] LABS: Alkaline Phosphatase 116 U/L (46-116); Bilirubin, Total 0.3 mg/dL (0.2-1.0); CRP High Sensitivity 3.11 mg/dL (<1.0); Carbon Dioxide 32 mmol/L (20-31); Chloride 92 mmol/L (98-107); Glucose 194 mg/dL (74-106); Sodium 134 mmol/L (136-145)
[2025-03-10 19:22] LABS: Erythrocyte Sedimentation Rate 64 mm/hr (0-20)
[2025-03-10] MEDS: PIPERACILLIN-TAZOB 3.375GM 100 ML IV ONE (21:00)
[2025-03-10 22:05] VITALS: PULSE 85; RESP 17; O2SAT 97
[2025-03-10] MEDS: VANCOMYCIN 1GM/200ML PM 250 ML IV ONE (22:10)
[2025-03-10] MEDS ORDERED: VANCOMYCIN PER PHARMACY 0 MG IV SCH (22:15)
[2025-03-10] MEDS ORDERED: HYDROmorphone HCL 2 MG/ML VL/or syr IV PRN (22:15)
[2025-03-10] MEDS ORDERED: DOCUSATE SOD 100 MG CAP PO PRN (22:15)
--- NOTE | 2025-03-10 22:28 | DVHHP2 ---
Admitting Diagnosis: Left foot infection History of Present Illness 40 y.o female sent by children's ministry director Dr. Hsu today for surgical intervention admit. Patient reports left foot wound abscess, insicion and drainage on june 2024, since has had weekly check ups with children's ministry director. Patient reports developing bump to the wound site, had a needle inserted to aspirate the fluid but patient reports bump reappeared. Patient today had her weekly check in and children's ministry director noticed wound site appeared infected, red, swollen and with pus and bleeding discharge. Since patient has neuropathy, no sever pain but does note discomfort. Patient Wound is localized to the left forefoot lateral aspect which appears red, swollen and has an ulcer. Patient denies any fever, chills, and antibiotic use. patient had wound cleaned and wrapped at children's ministry director office prior to sending her to the ED. Past Medical History: DM 1, ESRD on dialysis M,W,F, neuropathy, PUD Past Surgical History: EGD, insertion and drainage abscess to the left foot, peritoneal catheter inserted +removed, Heart catheter inserted + Removed, Left forearm catheter inserted + removed, current left upper arm fistula for dialysis PAST MEDICAL HISTORY: DM, ESRD, HTN Surgical History (Other): multiple fistuals inserted and removal FLASK FITTER History: No Pertinent FLASK FITTER History Family History: No family hx of Cancer, No family hx of DM, No family hx of Heart yashira, No family hx of HTN, No family hx of Stroke, Unobtainable Social History Smoker: Non-Smoker Alcohol: Denies ETOH Use Drugs: Denies Drug Use Lives In: Home Patient Family History: FH: lymphoma G8 MOTHER, Onset:Unknown Family history: Cardiovascular disease G8 FATHER, Onset:Unknown Family history: Diabetes in G8 MOTHER, Onset:Unknown Family history: Diabetes mellitus G8 FATHER, Onset:Unknown Family history: Hypercholesterolemia (situation) G8 MOTHER, Onset:Unknown Family history: Hypertension G8 FATHER, Onset:Unknown No Family History of: Family history: Alzheimer's disease Family history: Arthritis Family history: Asthma Family history: Blood disorder Family history: Congenital anomaly Family history: Coronary thrombosis Family history: Depression (situation) Family history: Osteoporosis Family history: Suicide (situation) Family history: Thyroid disorder Ischemic heart disease Malignant melanoma Malignant neoplasm of breast Malignant neoplasm of lung Malignant neoplasm of ovary Prostate cancer Renal stone Seizure disorder (situation) Stroke Allergies: Coded Allergies: Metformin (Verified Allergy, Severe, 03/31/14) Hydralazine (Verified Allergy, Unknown, 06/13/22) Povidone Iodine (Verified Allergy, Unknown, 06/13/22) Home Meds Active Scripts Hydrocodone-Acetaminophen (Hydrocodone Bitartrate/AC 5-325 mg) 1 Tab Tab, 1 TAB PO TIDP PRN for 7 Days, #21 TAB Prov:ALEXANDRIA NELSON MD 07/04/24 Ondansetron HCl (Ondansetron Hydrochloride) 4 Mg Tab, 4 MG PO TIDP PRN for 8 Days, #24 TAB Prov:ALEXANDRIA NELSON MD 07/04/24 Tramadol Hcl (Tramadol Hcl) 50 Mg Tab, 50 MG PO Q6HP PRN, #20 TAB Prov:RYAN HENRY MD 03/30/24 Levofloxacin Hemihydrate (LEVAQUIN 500 MG) 500 Mg Tab, 1 TAB PO DAILY, #7 TAB Prov:RYAN HENRY MD 03/30/24 Sucralfate (CARAFATE) 1 Gm Tab, 1 GM PO Q6HP, #120 TAB 5 Refills Prov:RYAN HENRY MD 03/30/24 Pantoprazole Sodium Sesquihydr (Protonix) 40 Mg Tab, 40 MG PO DAILY, #30 TAB 5 Refills Prov:RYAN HENRY MD 03/30/24 Ondansetron Odt 4MG Tab (ZOFRAN PO) 4 Mg Tb, 4 MG PO Q4HP PRN, #30 TAB ODT TAB-DISSOLVE IN MOUTH, THEN SWALLOW Prov:RYAN HENRY MD 03/30/24 Vital Signs Vital Signs Date Time Temp Pulse Resp B/P (MAP) Pulse Ox O2 Delivery O2 Flow Rate FiO2 03/10/25 16:21 97.9 84 16 123/73 (90) 97 97.9 Physical Exam Generally-40 years old woman, morbidly obese, sitting on chair. No apparent distress HEENT-atraumatic, normocephalic Heart-regular rate and rhythm Lungs decreased breath sounds due to body habitus Abdomen soft nontender nondistended Musculoskeletal-left foot wrapped in bandage, tender to palpate, wheezing Neuro-AO x3, decreased sensation in bilateral lower foot, strength intact Results Labs Test 03/10/25 17:55 03/10/25 17:39 Range/Units Lactic Acid Level 1.8 0.4-2.0 mmol/L White Blood Count 9.8 4.4-10.8 10^3/uL Red Blood Count 4.04 4.0-5.20 10^6/uL Hemoglobin 13.4 12.2-16.2 g/dL Hematocrit 39.3 36.0-46.0 % Mean Corpuscular Volume 97.3 80.0-100.0 fL Mean Corpuscular Hemoglobin 33.3 H 28.0-32.0 pg Mean Corpuscular Hemoglobin Concent 34.2 32.0-36.0 g/dL Red Cell Distribution Width 15.3 H 11.8-14.3 % Platelet Count 430 140-450 10^3/uL Mean Platelet Volume 6.4 L 6.9-10.8 fL Neutrophils (%) (Auto) 63.9 37.0-80.0 % Lymphocytes (%) (Auto) 23.3 10.0-50.0 % Monocytes (%) (Auto) 10.6 0.0-12.0 % Eosinophils (%) (Auto) 1.7 0.0-7.0 % Basophils (%) (Auto) 0.5 0.0-2.0 % Neutrophils # (Auto) 6.2 1.6-8.6 10 ^3/uL Lymphocytes # (Auto) 2.3 0.4-5.4 10 ^3/uL Monocytes # (Auto) 1.0 0-1.3 10 ^3/uL Eosinophils # (Auto) 0.2 0-0.8 10 ^3/uL Basophils # (Auto) 0.1 0-0.2 10 ^3/uL Nucleated Red Blood Cells 0.1 % Erythrocyte Sedimentation Rate 64 H 0-20 mm/hr Sodium Level 134 L 136-145 mmol/L Potassium Level 3.9 3.5-5.1 mmol/L Chloride Level 92 L 98-107 mmol/L Carbon Dioxide Level 32 H 20-31 mmol/L Anion Gap 10 5-15 Blood Urea Nitrogen 21 9-23 mg/dL Creatinine 6.11 H 0.550-1.02 mg/dL Glomerular Filtration Rate Calc 8 >90 mL/min BUN/Creatinine Ratio 3.4 L 10.0-20.0 Serum Glucose 194 H 74-106 mg/dL Calcium Level 10.0 8.7-10.4 mg/dL Total Bilirubin 0.3 0.2-1.0 mg/dL Aspartate Amino Transferase (AST) 19 13-40 U/L Alanine Aminotransferase (ALT) 36 7-40 U/L Alkaline Phosphatase 116 46-116 U/L C-Reactive Protein High Sensitivity 3.11 H <1.0 mg/dL Total Protein 8.1 5.7-8.2 g/dL Albumin 4.5 3.2-4.8 g/dL Primary Diagnosis Left foot abscess End-stage renal disease on hemodialysis Plan Sees Podiatry outpatient CT scan of the left foot shows abscess Vanc and Zosyn for broad-spectrum antibiotics Check wound culture blood culture Check CRP Podiatry consult to assess for possible I and D NPO midnight Good check q.4 patient is type 1 diabetes PPI for GI prophylaxis SCD for DVT prophylaxis Full code Plan discussed with: Patient Problems List: (1) Diabetic foot ulcer Status: Acute Date of Service: Mar 10, 2025 Billing Provider: FAVIO WOLF MD Common Visit Codes: [id number] INP/OBS CARE (HIGH) FAVIO WOLF MD Mar 10, 2025 22:28
[2025-03-10 23:07] LABS: INR 0.97 (0.9-1.15); Prothrombin Time 10.3 sec (9.3-11.8)
[2025-03-11] MEDS: SUCRALFATE 1 GM TAB PO SCH (00:08)
[2025-03-11] MEDS: SODIUM CHLOR 0.9% PF (SALINE LOCK) 10ML VIAL/SYR IV SCH (05:37)
[2025-03-11] MEDS: ONDANSETRON HCL 4 MG/2 ML VIAL IV PRN (05:40)
[2025-03-11 08:11] LABS: Basophils # (auto) 0.1 10 ^3/uL (0-0.2); Basophils % (auto) 0.6 % (0.0-2.0); Eosinophils # (auto) 0.2 10 ^3/uL (0-0.8); Eosinophils % (auto) 1.6 % (0.0-7.0); Hematocrit 38.6 % (36.0-46.0); Hemoglobin 13.3 g/dL (12.2-16.2); Lymphocytes # (auto) 1.8 10 ^3/uL (0.4-5.4); Lymphocytes % (auto) 16.4 % (10.0-50.0); Mean Corpuscular Hemoglobin 33.9 pg (28.0-32.0); Mean Corpuscular Hgb Conc. 34.3 g/dL (32.0-36.0); Mean Corpuscular Volume 98.7 fL (80.0-100.0); Monocytes # (auto) 1.1 10 ^3/uL (0-1.3); Monocytes % (auto) 10.3 % (0.0-12.0); Neutrophils # (auto) 7.9 10 ^3/uL (1.6-8.6); Neutrophils % (auto) 71.1 % (37.0-80.0); Platelet Count (auto) 399 10^3/uL (140-450); Red Blood Cells 3.92 10^6/uL (4.0-5.20); Red Cell Distribution Width 15.5 % (11.8-14.3); White Blood Cell 11.1 10^3/uL (4.4-10.8)
[2025-03-11 08:28] LABS: Alanine Aminotransferase 34 U/L (7-40); Alkaline Phosphatase 109 U/L (46-116); Anion Gap 12 (5-15); BUN/Creatinine Ratio 3.7 (10.0-20.0); Calcium 10.2 mg/dL (8.7-10.4); Carbon Dioxide 29 mmol/L (20-31); Potassium 4.8 mmol/L (3.5-5.1); Total Protein 8.2 g/dL (5.7-8.2)
[2025-03-11 08:29] LABS: Albumin 4.4 g/dL (3.2-4.8); Aspartate Aminotransferase 18 U/L (13-40); Bilirubin, Total 0.4 mg/dL (0.2-1.0)
[2025-03-11 08:35] LABS: Blood Urea Nitrogen 27 mg/dL (9-23); Chloride 93 mmol/L (98-107); Glucose 236 mg/dL (74-106); Sodium 134 mmol/L (136-145)
[2025-03-11] MEDS: FLORASTOR (S. BOULARDII) 250 MG CAP PO SCH (11:10)
[2025-03-11] MEDS: PANTOPRAZOLE 40 MG TAB PO SCH (11:11)
[2025-03-11] MEDS: PIPERACILLIN-TAZOB 3.375GM 100 ML IV SCH (11:11)
--- NOTE | 2025-03-11 12:13 | DVHPN2 ---
Progress Note Date Seen: Mar 11, 2025 Medical Necessity Reason Pt with a Central, PICC or Fol: No Subjective Patient reports: No new complaints Review of Systems: HEENT:Normal, CVS:Normal, RESPIRATORY:Normal, GI:Normal, :Normal, MSK:Normal, NEURO:Normal Objective vital signs Vital Sign Date Time Temp Pulse Resp B/P (MAP) Pulse Ox O2 Delivery O2 Flow Rate FiO2 03/11/25 06:07 98.7 87 12 142/77 (98) 97 98.7 03/10/25 22:05 Room Air* 0 21 Total Intake and Output 03/10/25 03/10/25 03/11/25 14:59 22:59 06:59 Intake Total 350 ml Balance 350 ml medications Current Medications Medications Dose Ordered Sig/Alexis Route Start Time Stop Time Status Last Admin Dose Admin Vancomycin HCl 0 ml @ 0 mls/hr UD IV 03/10/25 22:15 UNV Piperacillin Sod/ Tazobactam Sod 100 ml @ 100 mls/hr BID IV 03/11/25 10:00 03/11/25 11:11 100 MLS/HR Pantoprazole Sodium 40 mg DAILY PO 03/11/25 10:00 03/11/25 11:11 40 MG Sucralfate 1 gm Q6HP PO 03/11/25 00:00 03/11/25 11:10 1 GM Sodium Chloride 10 ml Q8HR IV 03/11/25 06:00 03/11/25 05:37 10 ML Docusate Sodium 100 mg BIDPRN PRN PO 03/10/25 22:15 Acetaminophen 650 mg Q6HP PRN PO 03/10/25 22:15 Acetaminophen/ Hydrocodone Bitart 1 tab Q4HP PRN PO 03/10/25 22:15 Hydromorphone HCl 0.5 mg Q4HP PRN IV 03/10/25 22:15 Ondansetron HCl 4 mg Q4HP PRN IV 03/10/25 22:15 03/11/25 05:40 4 MG Saccharomyces Boulardii 250 mg DAILY PO 03/11/25 10:00 03/11/25 11:10 250 MG Diagnostic Test (Pha) 1 strip Q6HR 03/11/25 18:00 UNV Dextrose 50 ml UD PRN IV 03/11/25 12:15 UNV Examination: GENERAL:Normal, HEENT:Normal, NECK:Normal, LUNGS:Normal, CVS:Normal, ABDOMEN:Normal, MSK:Normal, MSK:Abnormal (left foot dressing), SKIN:Normal, NEURO:Normal, :Normal laboratory and microbiology Laboratory Tests 03/11/25 07:47 Test 03/11/25 07:47 Range/Units Serum Glucose 236 H 74-106 mg/dL Problem List/Assessment/Plan Problem List/Assessment/Plan #1 left foot abscess ?osteo: surg today, iv antibiotics #2 dm: on insulin pump #3 esrd: on dialysis #4 morbid obesity advance care planning- full code- time spent 18 mins Plan discussed with: Patient My Orders My Orders Orders - ALEXANDRIA NELSON MD Procedure Category Date Status Time *Dr. [facility] -Da CONS 03/11/25 Transmitted Sola 12:06 Glucose Blood PHA 03/11/25 Logged (Accu-Chek Comfort 18:00 Dextrose 50% Syringe PHA 03/11/25 Logged 12:15 Basic Metabolic Panel LAB 03/12/25 Verified 06:00 Complete Blood Count LAB 03/12/25 Verified 06:00 Date of Service: Mar 11, 2025 Billing Provider: ALEXANDRIA NELSON MD Common Visit Codes: [id number] INP/OBS CARE(HIGH) Secondary Visit Codes: [id number] CARE PLAN 30 MINUTES ALEXANDRIA NELSON MD Mar 11, 2025 12:13
[2025-03-11] MEDS ORDERED: DEXTROSE (50%) 50ML SYRG IV PRN (12:15)
[2025-03-11] MEDS: BUPIVACAINE 0.5% P/F INJ 10 ML VIAL ONE (13:43)
[2025-03-11] MEDS: CHLORHEXIDINE 4% TOPICAL soln 118ml TOP ONE (13:43)
--- NOTE | 2025-03-11 13:45 | DVHINCON2 ---
Date Seen: Mar 11, 2025 Reason for Consultation Left foot wound History of Present Illness 40 y.o female sent by wharf tender head Dr. Hsu today for surgical intervention admit. Patient reports left foot wound abscess, insicion and drainage on june 2024, since has had weekly check ups with wharf tender head. Patient reports developing bump to the wound site, had a needle inserted to aspirate the fluid but patient reports bump reappeared. Patient today had her weekly check in and wharf tender head noticed wound site appeared infected, red, swollen and with pus and bleeding discharge. Since patient has neuropathy, no sever pain but does note discomfort. Patient Wound is localized to the left forefoot lateral aspect which appears red, swollen and has an ulcer. Patient denies any fever, chills, and antibiotic use. patient had wound cleaned and wrapped at wharf tender head office prior to sending her to the ED. Past Medical History See H&P Past Surgical History See H&P Family History: FH: lymphoma G8 MOTHER, Onset:Unknown Family history: Cardiovascular disease G8 FATHER, Onset:Unknown Family history: Diabetes in G8 MOTHER, Onset:Unknown Family history: Diabetes mellitus G8 FATHER, Onset:Unknown Family history: Hypercholesterolemia (situation) G8 MOTHER, Onset:Unknown Family history: Hypertension G8 FATHER, Onset:Unknown No Family History of: Family history: Alzheimer's disease Family history: Arthritis Family history: Asthma Family history: Blood disorder Family history: Congenital anomaly Family history: Coronary thrombosis Family history: Depression (situation) Family history: Osteoporosis Family history: Suicide (situation) Family history: Thyroid disorder Ischemic heart disease Malignant melanoma Malignant neoplasm of breast Malignant neoplasm of lung Malignant neoplasm of ovary Prostate cancer Renal stone Seizure disorder (situation) Stroke Allergies: Coded Allergies: Metformin (Verified Allergy, Severe, 03/31/14) Hydralazine (Verified Allergy, Unknown, 06/13/22) Povidone Iodine (Verified Allergy, Unknown, 06/13/22) Home Meds Active Scripts Hydrocodone-Acetaminophen (Hydrocodone Bitartrate/AC 5-325 mg) 1 Tab Tab, 1 TAB PO TIDP PRN for 7 Days, #21 TAB Prov:ALEXANDRIA NELSON MD 07/04/24 Ondansetron HCl (Ondansetron Hydrochloride) 4 Mg Tab, 4 MG PO TIDP PRN for 8 Days, #24 TAB Prov:ALEXANDRIA NELSON MD 07/04/24 Tramadol Hcl (Tramadol Hcl) 50 Mg Tab, 50 MG PO Q6HP PRN, #20 TAB Prov:RYAN HENRY MD 03/30/24 Levofloxacin Hemihydrate (LEVAQUIN 500 MG) 500 Mg Tab, 1 TAB PO DAILY, #7 TAB Prov:RYAN HENRY MD 03/30/24 Sucralfate (CARAFATE) 1 Gm Tab, 1 GM PO Q6HP, #120 TAB 5 Refills Prov:RYAN HENRY MD 03/30/24 Pantoprazole Sodium Sesquihydr (Protonix) 40 Mg Tab, 40 MG PO DAILY, #30 TAB 5 Refills Prov:RYAN HENRY MD 03/30/24 Ondansetron Odt 4MG Tab (ZOFRAN PO) 4 Mg Tb, 4 MG PO Q4HP PRN, #30 TAB ODT TAB-DISSOLVE IN MOUTH, THEN SWALLOW Prov:RYAN HENRY MD 03/30/24 Current Medications Current Medications Medications (Trade) Dose Ordered Sig/Alexis Route PRN Reason Start Time Stop Time Status Last Admin Vancomycin HCl 0 ml @ 0 mls/hr UD IV 03/10/25 22:15 UNV Piperacillin Sod/ Tazobactam Sod 100 ml @ 100 mls/hr BID IV 03/11/25 10:00 03/11/25 11:11 Pantoprazole Sodium (Protonix Tablet) 40 mg DAILY PO 03/11/25 10:00 03/11/25 11:11 Sucralfate (Carafate Tab) 1 gm Q6HP PO 03/11/25 00:00 03/11/25 11:10 Sodium Chloride (Saline Lock Ns) 10 ml Q8HR IV 03/11/25 06:00 03/11/25 05:37 Docusate Sodium (Colace Capsule) 100 mg BIDPRN PRN PO FOR CONSTIPATION 03/10/25 22:15 Acetaminophen (Tylenol Tablet) 650 mg Q6HP PRN PO PAIN SCALE 1-3 OR TEMP>100.4 03/10/25 22:15 Acetaminophen/ Hydrocodone Bitart ([place] 5/325MG Tab) 1 tab Q4HP PRN PO MODERATE PAIN (4-6 PAIN SCALE) 03/10/25 22:15 Hydromorphone HCl (Dilaudid Injection) 0.5 mg Q4HP PRN IV SEVERE PAIN (7-10 PAIN SCALE) 03/10/25 22:15 Ondansetron HCl (Zofran) 4 mg Q4HP PRN IV NAUSEA / VOMITING 03/10/25 22:15 03/11/25 05:40 Saccharomyces Boulardii (Florastor) 250 mg DAILY PO 03/11/25 10:00 03/11/25 11:10 Diagnostic Test (Pha) (Accu-Chek Comfort Curve T) 1 strip Q6HR 03/11/25 18:00 Dextrose 50 ml UD PRN IV Blood Sugar LESS THAN 60 03/11/25 12:15 Vital Signs Vital Signs Date Time Temp Pulse Resp B/P (MAP) Pulse Ox O2 Delivery O2 Flow Rate FiO2 03/11/25 06:07 98.7 87 12 142/77 (98) 97 98.7 03/10/25 22:05 Room Air* 0 21 Physical Exam Dermatological: Skin is dry with mild erythema and some maceration around the wound site No gross deformities noted Mild non-pitting edema present bilaterally Wound: Location: Left lateral foot Measures: 1 cm in length, 1 cm in width, and 1.5 cm in depth. Depth: Full thickness Base: Mix of granulation/slough Drainage: Yes Odor: None Periwound: Cellulitis Vascular: Dorsalis pedis and posterior tibial pulses are 1+ bilaterally Capillary refill is under 2 seconds Skin temperature is warm bilaterally Neurologic: Protective sensation is absent on the plantar forefoot bilaterally Monofilament testing reveals decreased sensation in multiple plantar sites Musculoskeletal: Range of motion at the ankle and MTP joints is within normal limits. Strength is 5/5 in all tested muscle groups. Gait is antalgic due to offloading of the affected limb. Labs/Diagnostic Data Labs Test 03/11/25 07:47 03/10/25 22:34 03/10/25 17:55 03/10/25 17:39 Range/Units White Blood Count 11.1 H 4.4-10.8 10^3/uL Red Blood Count 3.92 L 4.0-5.20 10^6/uL Hemoglobin 13.3 12.2-16.2 g/dL Hematocrit 38.6 36.0-46.0 % Mean Corpuscular Volume 98.7 80.0-100.0 fL Mean Corpuscular Hemoglobin 33.9 H 28.0-32.0 pg Mean Corpuscular Hemoglobin Concent 34.3 32.0-36.0 g/dL Red Cell Distribution Width 15.5 H 11.8-14.3 % Platelet Count 399 140-450 10^3/uL Mean Platelet Volume 6.4 L 6.9-10.8 fL Neutrophils (%) (Auto) 71.1 37.0-80.0 % Lymphocytes (%) (Auto) 16.4 10.0-50.0 % Monocytes (%) (Auto) 10.3 0.0-12.0 % Eosinophils (%) (Auto) 1.6 0.0-7.0 % Basophils (%) (Auto) 0.6 0.0-2.0 % Neutrophils # (Auto) 7.9 1.6-8.6 10 ^3/uL Lymphocytes # (Auto) 1.8 0.4-5.4 10 ^3/uL Monocytes # (Auto) 1.1 0-1.3 10 ^3/uL Eosinophils # (Auto) 0.2 0-0.8 10 ^3/uL Basophils # (Auto) 0.1 0-0.2 10 ^3/uL Nucleated Red Blood Cells 0.0 % Sodium Level 134 L 136-145 mmol/L Potassium Level 4.8 3.5-5.1 mmol/L Chloride Level 93 L 98-107 mmol/L Carbon Dioxide Level 29 20-31 mmol/L Anion Gap 12 5-15 Blood Urea Nitrogen 27 H 9-23 mg/dL Creatinine 7.28 H 0.550-1.02 mg/dL Glomerular Filtration Rate Calc 7 >90 mL/min BUN/Creatinine Ratio 3.7 L 10.0-20.0 Serum Glucose 236 H 74-106 mg/dL Calcium Level 10.2 8.7-10.4 mg/dL Total Bilirubin 0.4 0.2-1.0 mg/dL Aspartate Amino Transferase (AST) 18 13-40 U/L Alanine Aminotransferase (ALT) 34 7-40 U/L Alkaline Phosphatase 109 46-116 U/L Total Protein 8.2 5.7-8.2 g/dL Albumin 4.4 3.2-4.8 g/dL Beta HCG, Quantitative 0.5 L 1.5-4.2 mIU/mL Prothrombin Time 10.3 9.3-11.8 sec Prothrombin Time INR 0.97 0.9-1.15 C-Reactive Protein High Sensitivity 3.11 H <1.0 mg/dL Lactic Acid Level 1.8 0.4-2.0 mmol/L Erythrocyte Sedimentation Rate 64 H 0-20 mm/hr Problems(with codes): (1) Gastroenteritis (2) Dehydration (3) Acute gastritis (4) Corneal abrasion (5) GERD (gastroesophageal reflux disease) (6) HTN (hypertension) (7) Hyperglycemia (8) Conjunctivitis (9) Photophobia of left eye (10) Acute on chronic diastolic heart failure (11) Elevated troponin (12) Acute chest pain (13) ESRD on dialysis (14) Syncope (15) Hyponatremia (16) Fever and chills (17) Chronic kidney disease (18) Uncontrolled diabetes mellitus (19) Osteomyelitis of left foot (20) Biliary sludge (21) Leukocytosis (22) Insulin dependent diabetes mellitus (23) Dyspepsia (24) Abdominal pain of unknown etiology (25) Foot abscess, left (26) Infected ulcer of skin (27) End stage renal disease on dialysis (28) Cellulitis of left foot (29) Foot ulcer, left (30) Left foot infection (31) Cellulitis (32) Noncompliance of patient with dietary regimen (33) Noncompliance with diet and medication regimen (34) Noncompliance w/medication treatment due to intermit use ofmedication (35) Noncompliance with diabetes treatment (36) Noncompliance with exercise regimen (37) Diabetic foot ulcer Plan/Recommendation ASSESSMENT: Patient is a [age] year old seen on the floor for a worsening ulcer PLAN: - The patients chart was reviewed, clinical findings were discussed with the patient, the etiologies of the conditions were discussed in detail, and a treatment plan was agreed to at this time, with both oral and written instructions provided. - reviewed advanced imaging - discussed plan is to perform an incision and drainage - patient will be NPO at midnight - take take her to the OR today - we will get cultures in the OR - can weightbear as tolerated in postoperative shoe All questions were answered and concerns addressed to the patient's satisfaction. The patient was given the phone number to the clinic and was told how to make contact with the clinic should any concerns or questions arise. Patient understands that if any questions or concerns arise prior to the next appointment, we should be contacted immediately. FOLLOW-UP: Continue to follow while inpatient Plan discussed with: Patient Date of Service: Mar 11, 2025 Billing Provider: CRISTAL ROMAN DPM Common Visit Codes: CONSULT ONLY Consultation Codes: [id number] CONSULT <80MIN CRISTAL ROMAN DPM Mar 11, 2025 13:45
--- NOTE | 2025-03-11 13:47 | DVHOP2 ---
Operative Report - 2 Report Details Date: 03/11/25 Preop Diagnosis: 1. Left foot abscess 2. Left foot cellulitis 3. Left foot osteomyelitis 4. Left foot diabetic foot ulcer Postop Diagnosis: Same as preop Surgeon: Cristal Roman MD Anesthesiologist: None Anesthesia: Local Consent: The patient was informed of the risks and benefits of the procedure. These include but are not limited to complications of anesthesia, postoperative infection, incomplete relief of symptoms, recurrence of symptoms, damage to blood vessels, nerves and tendons, deep venous thrombosis, pulmonary embolism and possible need for repeat surgery in the future. Complications: None Estimated Blood Loss: Minimal Fluids: None Findings: Consistent with diagnosis Indications for Surgery: Worsening left foot wound Name of Procedure Performed 1. Left foot I&D to bone (40262) Procedure Details Procedure Details: PRE-PROCEDURE INFORMATION: In the pre-op holding area, the extremity to be operated on was clearly marked and the patient verified correct laterality of th e marking. The patient was transferred to the OR table and placed in a supine position. A timeout was performed in which identification of the correct patient, procedure, location, and materials was done. The left foot and leg were prepped and draped in normal sterile fashion. DESCRIPTION OF PROCEDURE: Attention was directed to the left foot where area of fluctuance was noted. An incision was made over this area and was deepened through blunt dissection. The incision was deepened to the level of abscess and bone. Care was taken to the dissection to avoid any neurovascular and tendinous structures. The incision was deepened to the bone, and the abscess appeared to be purulent fluid consistent with pus. The cortices of the bone was then removed with rongeur an all necrotic tissue. After the abscess was drained, the area was irrigated with 3 L normal saline using cysto tubing. Deep cultures were then obtained from the wound. The area was then inspected and any areas of tracking, especially along the tendons were also drained. The wound was packed with Betadine-soaked gauze and we will need to be closed at a later date. All surgical wounds were irrigated copiously with saline and closed in layers with the aforementioned suture material. A dry sterile dressing was placed on the surgical extremity. The patient was placed in a _ POSTOPERATIVE INFORMATION: The patient tolerated the above noted procedure and anesthesia well and was transferred to the PACU with vital signs stable, and vascular status intact with capillary refill intact to all digits. Patient will return to the floor and continue IV antibiotics. Deep cultures were taken. Patient will need 6 weeks IV antibiotics. Patient will come in for closure on . Condition Good Disposition Still a Patient CRISTAL ROMAN DPM Mar 11, 2025 13:47
[2025-03-11 13:49] VITALS: PULSE 86; RESP 16; O2SAT 98
[2025-03-11] MEDS: ACETAMINOPHEN 325 MG TAB PO PRN (13:50)
[2025-03-11 17:36] VITALS: BP 142/75; PULSE 77; PULSE 85; RESP 18; RESP 19; TEMP 97.5; O2SAT 96; O2SAT 98
[2025-03-11] MEDS: ACCU-CHEK COMFORT CURVE STRIP VI SCH (18:00)
[2025-03-11] MEDS ORDERED: B-CO-6 PO (18:05)
[2025-03-11] MEDS ORDERED: GAB100C PO (18:06)
[2025-03-11 18:12] VITALS: BP 142/75; PULSE 85; RESP 18; TEMP 97.7; O2SAT 98
[2025-03-11 20:48] VITALS: BP 127/64; PULSE 84; RESP 17; TEMP 97.8; O2SAT 97
[2025-03-12] VITALS (8 sets, daily range): BP systolic 121–144; BP diastolic 59–79; PULSE 69–93; RESP 16–18; TEMP 97.9–98.4; O2SAT 91–96
--- NOTE | 2025-03-12 08:35 | DVHINCON2 ---
Date of service: Mar 12, [address] Nelson Reason for Consultation End-stage kidney disease History of Present Illness This is a 40-year-old female with history of end-stage kidney disease on hemodialysis, type 2 diabetes, peripheral neuropathy, peripheral vascular disease, hypertension presenting to the emergency room because of left foot abscess. Patient has been dealing with chronic nonhealing wound on the plantar aspect of her left foot for the past few months. Patient has been getting wound care at home. Recently it was noted that the foot was more swollen and there was an area of fluctuance. Evaluated by her sheet metal worker apprentice who recommended I and D. patient admitted for the same. Underwent drainage of the abscess yesterday. On IV antibiotics. Scheduled for wound debridement again tomorrow. Nephrology consulted for dialysis. Last dialysis was on Monday. Denies any shortness of breath. Labs have been reviewed. Past Medical History Past Medical History: DM , ESRD on dialysis M,W,F, neuropathy, PUD Past Surgical History AV fistula placement Family History: FH: lymphoma G8 MOTHER, Onset:Unknown Family history: Cardiovascular disease G8 FATHER, , Onset:Unknown Family history: Diabetes in G8 MOTHER, Onset:Unknown Family history: Diabetes mellitus G8 FATHER, , Onset:Unknown Family history: Hypercholesterolemia (situation) G8 MOTHER, Onset:Unknown Family history: Hypertension G8 FATHER, , Onset:Unknown No Family History of: Family history: Alzheimer's disease Family history: Arthritis Family history: Asthma Family history: Blood disorder Family history: Congenital anomaly Family history: Coronary thrombosis Family history: Depression (situation) Family history: Osteoporosis Family history: Suicide (situation) Family history: Thyroid disorder Ischemic heart disease Malignant melanoma Malignant neoplasm of breast Malignant neoplasm of lung Malignant neoplasm of ovary Prostate cancer Renal stone Seizure disorder (situation) Stroke Family History NEGATIVE FOR CHRONIC KIDNEY DISEASE Social History No active history of smoking, alcohol or drug abuse. Allergies: Coded Allergies: Metformin (Verified Allergy, Severe, 03/31/14) Hydralazine (Verified Allergy, Unknown, 06/13/22) Povidone Iodine (Verified Allergy, Unknown, 06/13/22) Home Meds Active Scripts Hydrocodone-Acetaminophen (Hydrocodone Bitartrate/AC 5-325 mg) 1 Tab Tab, 1 TAB PO TIDP PRN for 7 Days, #21 TAB Prov:ALEXANDRIA NELSON MD 07/04/24 Ondansetron HCl (Ondansetron Hydrochloride) 4 Mg Tab, 4 MG PO TIDP PRN for 8 Days, #24 TAB Prov:ALEXANDRIA NELSON MD 07/04/24 Tramadol Hcl (Tramadol Hcl) 50 Mg Tab, 50 MG PO Q6HP PRN, #20 TAB Prov:RYAN HENRY MD 03/30/24 Levofloxacin Hemihydrate (LEVAQUIN 500 MG) 500 Mg Tab, 1 TAB PO DAILY, #7 TAB Prov:RYAN HENRY MD 03/30/24 Sucralfate (CARAFATE) 1 Gm Tab, 1 GM PO Q6HP, #120 TAB 5 Refills Prov:RYAN HENRY MD 03/30/24 Pantoprazole Sodium Sesquihydr (Protonix) 40 Mg Tab, 40 MG PO DAILY, #30 TAB 5 Refills Prov:RYAN HENRY MD 03/30/24 Ondansetron Odt 4MG Tab (ZOFRAN PO) 4 Mg Tb, 4 MG PO Q4HP PRN, #30 TAB ODT TAB-DISSOLVE IN MOUTH, THEN SWALLOW Prov:RYAN HENRY MD 03/30/24 Reported Medications Gabapentin (Gabapentin) 100 Mg Cap, 1 CAP PO DAILY 03/11/25 B-Complex W/ C & Folic Acid (Daniela-[facility] Rx) Tab, 1 TAB PO DAILY 03/11/25 Current Medications Current Medications Medications (Trade) Dose Ordered Sig/Alexis Route PRN Reason Start Time Stop Time Status Last Admin Piperacillin Sod/ Tazobactam Sod 100 ml @ 100 mls/hr BID IV 03/11/25 10:00 03/11/25 21:53 Pantoprazole Sodium (Protonix Tablet) 40 mg DAILY PO 03/11/25 10:00 03/11/25 11:11 Saccharomyces Boulardii (Florastor) 250 mg DAILY PO 03/11/25 10:00 03/11/25 11:10 Diagnostic Test (Pha) (Accu-Chek Comfort Curve T) 1 strip Q6HR 03/11/25 18:00 03/12/25 05:36 Dextrose 50 ml UD PRN IV Blood Sugar LESS THAN 60 03/11/25 12:15 Review of Systems 12 point Review of systems negative except as stated in the HPI Vital Signs Vital Signs Date Time Temp Pulse Resp B/P (MAP) Pulse Ox O2 Delivery O2 Flow Rate FiO2 03/12/25 05:00 98.0 90 16 142/59 (86) 92 98.0 03/11/25 20:00 Room Air* 0 21 Physical Exam Awake alert oriented x3 HEENT: Normocephaly, no JVD Lungs: Bilateral good air entry CVS: S1, S2 regular rate rhythm Abdomen: Soft, bowel sounds present REPAIRING CALIBRATOR: No focal deficits Extremities: Left foot bandaged. Labs/Diagnostic Data Labs Test 03/12/25 05:05 03/11/25 18:18 03/11/25 07:47 03/10/25 22:34 Range/Units POC Glucose 115 H 70-106 mg/dl Random Vancomycin Level 14.3 H 5-10 ug/mL White Blood Count 11.1 H 4.4-10.8 10^3/uL Red Blood Count 3.92 L 4.0-5.20 10^6/uL Hemoglobin 13.3 12.2-16.2 g/dL Hematocrit 38.6 36.0-46.0 % Mean Corpuscular Volume 98.7 80.0-100.0 fL Mean Corpuscular Hemoglobin 33.9 H 28.0-32.0 pg Mean Corpuscular Hemoglobin Concent 34.3 32.0-36.0 g/dL Red Cell Distribution Width 15.5 H 11.8-14.3 % Platelet Count 399 140-450 10^3/uL Mean Platelet Volume 6.4 L 6.9-10.8 fL Neutrophils (%) (Auto) 71.1 37.0-80.0 % Lymphocytes (%) (Auto) 16.4 10.0-50.0 % Monocytes (%) (Auto) 10.3 0.0-12.0 % Eosinophils (%) (Auto) 1.6 0.0-7.0 % Basophils (%) (Auto) 0.6 0.0-2.0 % Neutrophils # (Auto) 7.9 1.6-8.6 10 ^3/uL Lymphocytes # (Auto) 1.8 0.4-5.4 10 ^3/uL Monocytes # (Auto) 1.1 0-1.3 10 ^3/uL Eosinophils # (Auto) 0.2 0-0.8 10 ^3/uL Basophils # (Auto) 0.1 0-0.2 10 ^3/uL Nucleated Red Blood Cells 0.0 % Sodium Level 134 L 136-145 mmol/L Potassium Level 4.8 3.5-5.1 mmol/L Chloride Level 93 L 98-107 mmol/L Carbon Dioxide Level 29 20-31 mmol/L Anion Gap 12 5-15 Blood Urea Nitrogen 27 H 9-23 mg/dL Creatinine 7.28 H 0.550-1.02 mg/dL Glomerular Filtration Rate Calc 7 >90 mL/min BUN/Creatinine Ratio 3.7 L 10.0-20.0 Serum Glucose 236 H 74-106 mg/dL Calcium Level 10.2 8.7-10.4 mg/dL Total Bilirubin 0.4 0.2-1.0 mg/dL Aspartate Amino Transferase (AST) 18 13-40 U/L Alanine Aminotransferase (ALT) 34 7-40 U/L Alkaline Phosphatase 109 46-116 U/L Total Protein 8.2 5.7-8.2 g/dL Albumin 4.4 3.2-4.8 g/dL Beta HCG, Quantitative 0.5 L 1.5-4.2 mIU/mL Prothrombin Time 10.3 9.3-11.8 sec Prothrombin Time INR 0.97 0.9-1.15 C-Reactive Protein High Sensitivity 3.11 H <1.0 mg/dL Test 03/10/25 17:55 03/10/25 17:39 Range/Units Lactic Acid Level 1.8 0.4-2.0 mmol/L Erythrocyte Sedimentation Rate 64 H 0-20 mm/hr Microbiology Date/Time Source Procedure Growth Status 03/10/25 17:39 Blood Blood Culture - Preliminary NO GROWTH AFTER 24 HOURS OF INCUBATION. Resulted Assessment End-stage kidney disease on hemodialysis Left foot abscess status post I&D Probable osteomyelitis Diabetes Peripheral neuropathy Plan/Recommendation Hemodialysis today with ultrafiltration of up to 2.5 L. Continue with IV vancomycin and Zosyn. Wound care as per Podiatry. Plan discussed with: Patient ZARA MORAN MD Mar 12, 2025 08:35
[2025-03-12 09:00] LABS: Basophils # (auto) 0.1 10 ^3/uL (0-0.2); Basophils % (auto) 0.7 % (0.0-2.0); Eosinophils # (auto) 0.2 10 ^3/uL (0-0.8); Eosinophils % (auto) 2.1 % (0.0-7.0); Hematocrit 36.5 % (36.0-46.0); Hemoglobin 12.3 g/dL (12.2-16.2); Lymphocytes % (auto) 21.3 % (10.0-50.0); Mean Corpuscular Hemoglobin 33.2 pg (28.0-32.0); Mean Corpuscular Hgb Conc. 33.6 g/dL (32.0-36.0); Mean Corpuscular Volume 98.9 fL (80.0-100.0); Monocytes % (auto) 10.5 % (0.0-12.0); Neutrophils # (auto) 6.1 10 ^3/uL (1.6-8.6); Neutrophils % (auto) 65.4 % (37.0-80.0); Platelet Count (auto) 376 10^3/uL (140-450); Red Blood Cells 3.69 10^6/uL (4.0-5.20); White Blood Cell 9.3 10^3/uL (4.4-10.8)
[2025-03-12 09:09] LABS: Potassium 4.6 mmol/L (3.5-5.1)
[2025-03-12 09:10] LABS: Anion Gap 11 (5-15); Carbon Dioxide 27 mmol/L (20-31)
[2025-03-12 09:11] LABS: Calcium 9.5 mg/dL (8.7-10.4)
[2025-03-12 09:17] LABS: Blood Urea Nitrogen 36 mg/dL (9-23); Chloride 97 mmol/L (98-107); Glucose 113 mg/dL (74-106); Sodium 135 mmol/L (136-145)
[2025-03-12] MEDS ORDERED: SODIUM CHL 0.9% 1000 ML BAG XX ONE (09:30)
--- NOTE | 2025-03-12 11:03 | DVHPN2 ---
Progress Note Date Seen: Mar 12, 2025 Medical Necessity Reason Pt with a Central, PICC or Fol: No Subjective Patient reports: No new complaints Review of Systems: HEENT:Normal, CVS:Normal, RESPIRATORY:Normal, GI:Normal, :Normal, MSK:Normal, NEURO:Normal Objective vital signs Vital Sign Date Time Temp Pulse Resp B/P (MAP) Pulse Ox O2 Delivery O2 Flow Rate FiO2 03/12/25 08:25 98.3 82 18 134/63 (86) 96 98.3 03/12/25 08:00 Room Air* 0 21 Total Intake and Output 03/11/25 03/11/25 03/12/25 15:00 23:00 07:00 Intake Total 100 ml 700 ml Balance 100 ml 700 ml medications Current Medications Medications Dose Ordered Sig/Alexis Route Start Time Stop Time Status Last Admin Dose Admin Vancomycin HCl 0 ml @ 0 mls/hr UD IV 03/10/25 22:15 Piperacillin Sod/ Tazobactam Sod 100 ml @ 100 mls/hr BID IV 03/11/25 10:00 03/12/25 08:55 100 MLS/HR Pantoprazole Sodium 40 mg DAILY PO 03/11/25 10:00 03/12/25 08:55 40 MG Sucralfate 1 gm Q6HP PO 03/11/25 00:00 03/12/25 05:36 1 GM Sodium Chloride 10 ml Q8HR IV 03/11/25 06:00 03/12/25 05:36 10 ML Docusate Sodium 100 mg BIDPRN PRN PO 03/10/25 22:15 Acetaminophen 650 mg Q6HP PRN PO 03/10/25 22:15 03/11/25 21:53 650 MG Acetaminophen/ Hydrocodone Bitart 1 tab Q4HP PRN PO 03/10/25 22:15 Hydromorphone HCl 0.5 mg Q4HP PRN IV 03/10/25 22:15 Ondansetron HCl 4 mg Q4HP PRN IV 03/10/25 22:15 03/11/25 05:40 4 MG Saccharomyces Boulardii 250 mg DAILY PO 03/11/25 10:00 03/12/25 09:00 250 MG Diagnostic Test (Pha) 1 strip Q6HR 03/11/25 18:00 03/12/25 05:36 1 STRIP Dextrose 50 ml UD PRN IV 03/11/25 12:15 Examination: GENERAL:Normal, HEENT:Normal, NECK:Normal, LUNGS:Normal, CVS:Normal, ABDOMEN:Normal, MSK:Normal, MSK:Abnormal (left foot dressing), SKIN:Normal, NEURO:Normal, :Normal laboratory and microbiology Laboratory Tests 03/12/25 08:48 Test 03/12/25 08:48 Range/Units Serum Glucose 113 H 74-106 mg/dL Microbiology Date/Time Source Procedure Growth Status 03/10/25 17:39 Blood Blood Culture - Preliminary NO GROWTH AFTER 24 HOURS OF INCUBATION. Resulted Problem List/Assessment/Plan Problem List/Assessment/Plan #1 left foot abscess ?osteo: s/p surg, repeat in am, iv antibiotics #2 dm: on insulin pump #3 esrd: on dialysis #4 morbid obesity advance care planning- full code- time spent 18 mins Plan discussed with: Patient My Orders My Orders Orders - ALEXANDRIA NELSON MD Procedure Category Date Status Time *Dr. [facility] -[facility] CONS 03/11/25 Transmitted Sola 12:06 Glucose Blood PHA 03/11/25 In Process (Accu-Chek Comfort 18:00 Dextrose 50% Syringe PHA 03/11/25 In Process 12:15 Date of Service: Mar 12, 2025 Billing Provider: ALEXANDRIA NELSON MD Common Visit Codes: [id number] INP/OBS CARE(HIGH) ALEXANDRIA NELSON MD Mar 12, 2025 11:03
[2025-03-13 01:00] VITALS: BP 140/70; PULSE 89; RESP 19; TEMP 97.9; O2SAT 95
[2025-03-13 05:00] VITALS: BP 105/46; PULSE 77; RESP 18; TEMP 98; O2SAT 90
[2025-03-13 07:47] LABS: Basophils # (auto) 0.1 10 ^3/uL (0-0.2); Basophils % (auto) 0.7 % (0.0-2.0); Eosinophils # (auto) 0.1 10 ^3/uL (0-0.8); Eosinophils % (auto) 1.9 % (0.0-7.0); Hematocrit 37.9 % (36.0-46.0); Hemoglobin 12.5 g/dL (12.2-16.2); Lymphocytes # (auto) 1.8 10 ^3/uL (0.4-5.4); Lymphocytes % (auto) 26.1 % (10.0-50.0); Mean Corpuscular Hemoglobin 32.9 pg (28.0-32.0); Mean Corpuscular Volume 99.7 fL (80.0-100.0); Monocytes # (auto) 0.8 10 ^3/uL (0-1.3); Monocytes % (auto) 10.9 % (0.0-12.0); Neutrophils # (auto) 4.2 10 ^3/uL (1.6-8.6); Neutrophils % (auto) 60.4 % (37.0-80.0); Nucleated Red Blood Cells % 0.1 %; Platelet Count (auto) 393 10^3/uL (140-450); Red Blood Cells 3.81 10^6/uL (4.0-5.20); White Blood Cell 6.9 10^3/uL (4.4-10.8)
[2025-03-13 09:00] VITALS: BP 125/64; PULSE 84; RESP 16; TEMP 98.2; O2SAT 95
[2025-03-13] MEDS ORDERED: VANCOMYCIN HCL 1000 MG VL ONE (11:24)
[2025-03-13] MEDS: BUPIVACAINE 0.5% MPF INJ 30ML SDV IJ ONE (12:09)
--- NOTE | 2025-03-13 12:37 | DVHPN2 ---
Subjective 40 y.o female sent by grievance manager Dr. Hsu today for surgical intervention admit. Patient reports left foot wound abscess, insicion and drainage on june 2024, since has had weekly check ups with grievance manager. Patient reports developing bump to the wound site, had a needle inserted to aspirate the fluid but patient reports bump reappeared. Patient today had her weekly check in and grievance manager noticed wound site appeared infected, red, swollen and with pus and bleeding discharge. Since patient has neuropathy, no sever pain but does note discomfort. Patient Wound is localized to the left forefoot lateral aspect which appears red, swollen and has an ulcer. Patient denies any fever, chills, and antibiotic use. patient had wound cleaned and wrapped at grievance manager office prior to sending her to the ED. Changes from previous H/P or p: No Changes Objective Vitals Vital Signs Date Time Temp Pulse Resp B/P (MAP) Pulse Ox O2 Delivery O2 Flow Rate FiO2 03/13/25 09:00 98.2 84 16 125/64 (84) 95 98.2 03/12/25 20:00 Room Air* 0 21 Intake/Output Intake and Output 03/13/25 07:00 Intake Total 736 ml Balance 736 ml Intake Oral 636 ml IV Total 100 ml # Voids 1 # Bowel Movements 1 Exam Dermatological: Skin is dry with mild erythema and some maceration around the wound site No gross deformities noted Mild non-pitting edema present bilaterally Wound: Location: Left lateral foot Measures: 1 cm in length, 1 cm in width, and 1.5 cm in depth. Depth: Full thickness Base: Mix of granulation/slough Drainage: Yes Odor: None Periwound: Cellulitis Vascular: Dorsalis pedis and posterior tibial pulses are 1+ bilaterally Capillary refill is under 2 seconds Skin temperature is warm bilaterally Neurologic: Protective sensation is absent on the plantar forefoot bilaterally Monofilament testing reveals decreased sensation in multiple plantar sites Musculoskeletal: Range of motion at the ankle and MTP joints is within normal limits. Strength is 5/5 in all tested muscle groups. Gait is antalgic due to offloading of the affected limb. Medications Current Medications Medications Dose Ordered Sig/Alexis Route Start Time Stop Time Status Last Admin Dose Admin Vancomycin HCl 0 ml @ 0 mls/hr UD IV 03/10/25 22:15 Piperacillin Sod/ Tazobactam Sod 100 ml @ 100 mls/hr BID IV 03/11/25 10:00 03/13/25 10:16 100 MLS/HR Pantoprazole Sodium 40 mg DAILY PO 03/11/25 10:00 03/13/25 10:15 40 MG Sucralfate 1 gm Q6HP PO 03/11/25 00:00 03/12/25 23:34 1 GM Sodium Chloride 10 ml Q8HR IV 03/11/25 06:00 03/12/25 21:07 10 ML Docusate Sodium 100 mg BIDPRN PRN PO 03/10/25 22:15 Acetaminophen 650 mg Q6HP PRN PO 03/10/25 22:15 03/12/25 23:34 650 MG Acetaminophen/ Hydrocodone Bitart 1 tab Q4HP PRN PO 03/10/25 22:15 Hydromorphone HCl 0.5 mg Q4HP PRN IV 03/10/25 22:15 Ondansetron HCl 4 mg Q4HP PRN IV 03/10/25 22:15 03/13/25 10:16 4 MG Saccharomyces Boulardii 250 mg DAILY PO 03/11/25 10:00 03/13/25 10:15 250 MG Diagnostic Test (Pha) 1 strip Q6HR 03/11/25 18:00 03/12/25 23:35 1 STRIP Dextrose 50 ml UD PRN IV 03/11/25 12:15 Laboratory Results Laboratory Tests 03/12/25 08:48 03/13/25 05:40 Microbiology Microbiology Date/Time Source Procedure Growth Status 03/11/25 13:36 Foot Left Gram Stain - Final Resulted 03/11/25 13:36 Foot Left Anaerobic Culture - Preliminary Resulted 03/11/25 13:36 Aerobic Culture - Final Staphylococcus aureus Resulted 03/10/25 17:39 Blood Blood Culture - Preliminary NO GROWTH AFTER 48 HOURS OF INCUBATION. Resulted Assessment/Plan Assessment/Plan ASSESSMENT: Patient is a 40-year-old female seen on the floor today s/p from a left foot incision and drainage PLAN: - The patients chart was reviewed, clinical findings were discussed with the patient, the etiologies of the conditions were discussed in detail, and a treatment plan was agreed to at this time, with both oral and written instructions provided. - reviewed advanced imaging - discussed plan is to perform an incision and drainage and closure - patient NPO since midnight - take him to the OR today - patient would benefit from routine foot care in clinic - can weightbear as tolerated in postoperative shoe All questions were answered and concerns addressed to the patient's satisfaction. The patient was given the phone number to the clinic and was told how to make contact with the clinic should any concerns or questions arise. Patient understands that if any questions or concerns arise prior to the next appointment, we should be contacted immediately. FOLLOW-UP: Continue to follow while inpatient Plan discussed with: Patient My Orders Orders - CRISTAL ROMAN DPM Procedure Category Date Status Time Npo After Midnight ORDERS 03/12/25 Transmitted Obtain Consent For: ORDERS 03/12/25 Transmitted 13:49 Problem List: (1) Diabetic foot ulcer (2) Biliary sludge (3) Dehydration (4) Insulin dependent diabetes mellitus (5) Corneal abrasion (6) Cellulitis (7) Conjunctivitis (8) Dyspepsia (9) Gastroenteritis (10) Hyperglycemia (11) Hyponatremia (12) Leukocytosis (13) Syncope (14) Fever and chills (15) GERD (gastroesophageal reflux disease) (16) Acute gastritis (17) HTN (hypertension) (18) Acute on chronic diastolic heart failure (19) Chronic kidney disease (20) Uncontrolled diabetes mellitus (21) Elevated troponin (22) Acute chest pain (23) End stage renal disease on dialysis (24) ESRD on dialysis (25) Photophobia of left eye (26) Foot ulcer, left (27) Foot abscess, left (28) Osteomyelitis of left foot (29) Abdominal pain of unknown etiology (30) Cellulitis of left foot (31) Noncompliance of patient with dietary regimen (32) Noncompliance with diet and medication regimen (33) Left foot infection (34) Noncompliance w/medication treatment due to intermit use ofmedication (35) Noncompliance with diabetes treatment (36) Infected ulcer of skin (37) Noncompliance with exercise regimen Date of Service: Mar 13, 2025 Billing Provider: CRISTAL ROMAN DPM Common Visit Codes: [id number] INP/OBS CARE(HIGH) CRISTAL ROMAN DPM Mar 13, 2025 12:37
--- NOTE | 2025-03-13 12:42 | DVHOP2 ---
Operative Report - 2 Report Details Date: 03/13/25 Preop Diagnosis: 1. Left foot abscess 2. Left foot cellulitis 3. Left foot osteomyelitis 4. Left foot diabetic foot ulcer Postop Diagnosis: Same as preop Surgeon: Cristal Roman MD Anesthesiologist: None Anesthesia: Local Consent: The patient was informed of the risks and benefits of the procedure. These include but are not limited to complications of anesthesia, postoperative infection, incomplete relief of symptoms, recurrence of symptoms, damage to blood vessels, nerves and tendons, deep venous thrombosis, pulmonary embolism and possible need for repeat surgery in the future. Complications: None Estimated Blood Loss: Minimal Fluids: See anesthesia Findings: Consistent with diagnosis Indications for Surgery: Worsening left foot pain Name of Procedure Performed 1. Left foot I&D to bone (69380) 2. Left foot rotational flap (92422) 3. Left foot delayed closure (30724) Procedure Details Procedure Details: PRE-PROCEDURE INFORMATION: In the pre-op holding area, the extremity to be operated on was clearly marked and the patient verified correct laterality of the marking. The patient was transferred to the OR table and placed in a supine position. A timeout was performed in which identification of the correct patient, procedure, location, and materials was done. The left foot and leg were prepped and draped in normal sterile fashion. DESCRIPTION OF PROCEDURE: Attention was directed to the left foot where previous incision was made where area of fluctuance was noted. An incision was made over this area and was deepened through blunt dissection. The incision was deepened to the level of abscess and bone. Care was taken to the dissection to avoid any neurovascular and tendinous structures. The incision was deepened to the bone, and the abscess appeared to be purulent fluid consistent with pus. The cortices of the bone was then removed with rongeur an all necrotic tissue. After the abscess was drained, the area was irrigated with 3 L normal saline using cysto tubing. The area was then inspected and any areas of tracking, especially along the tendons were also drained. Using 15. Blade, elliptical excision and rotational flap was performed to allow for closure of the plantar wound and decrease the space of the lateral foot. A delayed closure was then performed using 2-0 nylon and vancomycin powder after was deemed appropriate with no longer concern for infection. POSTOPERATIVE INFORMATION: The patient tolerated the above noted procedure and anesthesia well and was transferred to the PACU with vital signs stable, and vascular status intact with capillary refill intact to all digits. Patient will return to the floor and continue IV antibiotics. Patient will be discharged home on IV antibiotics. Patient can follow up with the next week. Patient to be nonweightbearing on that left foot. Condition Good Disposition Still a Patient CRISTAL ROMAN DPM Mar 13, 2025 12:42
[2025-03-13 13:00] VITALS: BP 112/85; PULSE 81; RESP 16; TEMP 97.6; O2SAT 96
[2025-03-13] MEDS: HYDROcodone-ACET 5/325MG TAB PO PRN (13:13)
--- NOTE | 2025-03-13 13:24 | DVHDS2 ---
Discharge Summary Date of Admission Mar 10, 2025 at 22:15 Date of Discharge: Mar 13, 2025 Labs/Diagnostic Data: Laboratory Results Test 03/13/25 06:10 03/13/25 05:40 03/12/25 08:48 03/11/25 07:47 POC Glucose 342 mg/dl (70-106) White Blood Count 6.9 10^3/uL (4.4-10.8) Red Blood Count 3.81 10^6/uL (4.0-5.20) Hemoglobin 12.5 g/dL (12.2-16.2) Hematocrit 37.9 % (36.0-46.0) Mean Corpuscular Volume 99.7 fL (80.0-100.0) Mean Corpuscular Hemoglobin 32.9 pg (28.0-32.0) Mean Corpuscular Hemoglobin Concent 33.0 g/dL (32.0-36.0) Red Cell Distribution Width 16.0 % (11.8-14.3) Platelet Count 393 10^3/uL (140-450) Mean Platelet Volume 6.6 fL (6.9-10.8) Neutrophils (%) (Auto) 60.4 % (37.0-80.0) Lymphocytes (%) (Auto) 26.1 % (10.0-50.0) Monocytes (%) (Auto) 10.9 % (0.0-12.0) Eosinophils (%) (Auto) 1.9 % (0.0-7.0) Basophils (%) (Auto) 0.7 % (0.0-2.0) Neutrophils # (Auto) 4.2 10 ^3/uL (1.6-8.6) Lymphocytes # (Auto) 1.8 10 ^3/uL (0.4-5.4) Monocytes # (Auto) 0.8 10 ^3/uL (0-1.3) Eosinophils # (Auto) 0.1 10 ^3/uL (0-0.8) Basophils # (Auto) 0.1 10 ^3/uL (0-0.2) Nucleated Red Blood Cells 0.1 % Creatinine 6.56 mg/dL (0.550-1.02) Glomerular Filtration Rate Calc 8 mL/min (>90) Random Vancomycin Level 9.8 ug/mL (5-10) Sodium Level 135 mmol/L (136-145) Potassium Level 4.6 mmol/L (3.5-5.1) Chloride Level 97 mmol/L (98-107) Carbon Dioxide Level 27 mmol/L (20-31) Anion Gap 11 (5-15) Blood Urea Nitrogen 36 mg/dL (9-23) BUN/Creatinine Ratio 4.0 (10.0-20.0) Serum Glucose 113 mg/dL (74-106) Calcium Level 9.5 mg/dL (8.7-10.4) Total Bilirubin 0.4 mg/dL (0.2-1.0) Aspartate Amino Transferase (AST) 18 U/L (13-40) Alanine Aminotransferase (ALT) 34 U/L (7-40) Alkaline Phosphatase 109 U/L (46-116) Total Protein 8.2 g/dL (5.7-8.2) Albumin 4.4 g/dL (3.2-4.8) Beta HCG, Quantitative 0.5 mIU/mL (1.5-4.2) Test 03/10/25 22:34 03/10/25 17:55 03/10/25 17:39 Prothrombin Time 10.3 sec (9.3-11.8) Prothrombin Time INR 0.97 (0.9-1.15) C-Reactive Protein High Sensitivity 3.11 mg/dL (<1.0) Lactic Acid Level 1.8 mmol/L (0.4-2.0) Erythrocyte Sedimentation Rate 64 mm/hr (0-20) Other Laboratory Tests 03/13/25 05:40 03/12/25 08:48 Brief Hx & Hospital Course: see dictated note Condition at Discharge: Good Final Diagnosis/Problems List left foot abscess Discharge Disposition: Home Discharge Instruct/Medications Diet: Consistent carbohydrate, Renal Activity: See Comment Activity comment: limit weight bearing on left leg Follow Up/Referral: [facility] dialysis clinic/ fu with dr Vázquez Medications: resume home meds iv antibiotics have been arranged with dr Lamar Discharge Statement: "Patient was advised to return to the ER or call 911 if any headaches, dizziness, shortness of breath, chest pain, abdominal pain, bleeding, fevers, or worsening of medical condition. Patient was counseled about treatment plan, medications, possible side effects, patientverbalized understanding. All questions were answered to the best of my ability. This discharge took greater then 30 minutes in planning, reviewing documentation, counseling the patient, and discussing with other team members." ASSESSMENT ASSESSMENT Assessment left foot abscess Date of Service: Mar 13, 2025 Billing Provider: ALEXANDRIA NELSON MD Common Visit Codes: 29806-FSI/OBS DISCH DAY >30min ALEXANDRIA NELSON MD Mar 13, 2025 13:24
--- NOTE | 2025-03-13 14:24 | DVHDS ---
DATE OF DISCHARGE: 03/13/2025 HISTORY OF PRESENT ILLNESS: The patient is a 40-year-old lady who was admitted with complaints of pain and redness of the left foot. The patient has a history of diabetes, end-stage renal disease, on hemodialysis, neuropathy, and peptic ulcer disease. HOSPITAL COURSE: The patient had a foot CT that showed soft tissue swelling with area of osteoporotic changes in the distal 5th metatarsal bone and the proximal phalanx. The patient was seen in Podiatry consult by Dr. Vázquez. The patient underwent surgery on the left foot. Wound cultures grew Staph aureus that was MSSA. The patient was seen by Dr. Lamar and continued on dialysis during her hospitalization. She will now be discharged home. The patient will have home health for wound care. She will also be placed on IV cefazolin 2 g on dialysis on Monday, 2 g on Monday, and 3 g on Monday with each dialysis session for a total of 4 weeks. I have discussed this plan in detail with the patient and Dr. Lamar. FINAL DIAGNOSES: * Left foot abscess/cellulitis with questionable sepsis. * Diabetes mellitus. * Morbid obesity. * End-stage renal disease, on hemodialysis. * Peripheral neuropathy. * Peptic ulcer disease. Time spent is discharge planning and review of plan with the patient and network security consultant was 41 minutes. MD STARR Lyman/KAYDEN TID: [id number] RECEIPT: [id number]
--- NOTE | 2025-03-13 16:41 | DVHPN2 ---
Progress Note - Dictate Date Seen: Mar 13, 2025 Medical Necessity Reason Pt with a Central, PICC or Fol: No Subjective Patient being discharged today vital signs Vital Sign Date Time Temp Pulse Resp B/P (MAP) Pulse Ox O2 Delivery O2 Flow Rate FiO2 03/13/25 13:00 97.6 81 16 112/85 (94) 96 97.6 03/12/25 20:00 Room Air* 0 21 Total Intake and Output 03/12/25 03/12/25 03/13/25 15:00 23:00 07:00 Intake Total 100 ml 636 ml 0 ml Balance 100 ml 636 ml 0 ml medications Current Medications Medications Dose Ordered Sig/Alexis Route Start Time Stop Time Status Last Admin Dose Admin Piperacillin Sod/ Tazobactam Sod 100 ml @ 100 mls/hr BID IV 03/11/25 10:00 03/13/25 10:16 100 MLS/HR Pantoprazole Sodium 40 mg DAILY PO 03/11/25 10:00 03/13/25 10:15 40 MG Sucralfate 1 gm Q6HP PO 03/11/25 00:00 03/12/25 23:34 1 GM Sodium Chloride 10 ml Q8HR IV 03/11/25 06:00 03/12/25 21:07 10 ML Docusate Sodium 100 mg BIDPRN PRN PO 03/10/25 22:15 Acetaminophen 650 mg Q6HP PRN PO 03/10/25 22:15 03/12/25 23:34 650 MG Acetaminophen/ Hydrocodone Bitart 1 tab Q4HP PRN PO 03/10/25 22:15 03/13/25 13:13 1 TAB Hydromorphone HCl 0.5 mg Q4HP PRN IV 03/10/25 22:15 Ondansetron HCl 4 mg Q4HP PRN IV 03/10/25 22:15 03/13/25 10:16 4 MG Saccharomyces Boulardii 250 mg DAILY PO 03/11/25 10:00 03/13/25 10:15 250 MG Diagnostic Test (Pha) 1 strip Q6HR 03/11/25 18:00 03/12/25 23:35 1 STRIP Dextrose 50 ml UD PRN IV 03/11/25 12:15 objective Awake alert oriented x3 HEENT: Normocephaly, no JVD Lungs: Bilateral good air entry CVS: S1, S2 regular rate rhythm Abdomen: Soft, bowel sounds present ASSISTANT TRACK AND FIELD COACH: No focal deficits Extremities: Left foot bandaged. laboratory and microbiology Laboratory Tests 03/13/25 05:40 03/12/25 08:48 Test 03/12/25 08:48 Range/Units Serum Glucose 113 H 74-106 mg/dL Problem List End-stage kidney disease on hemodialysis Left foot abscess status post I&D Probable osteomyelitis Diabetes Peripheral neuropathy Assessment/Plan Patient with MSSA in the wound . Will get Ancef 2gm/2gm/3gm with HD x 4 weeks Arrangements have been made continue HD MWF schedule Plan discussed with: Other ZARA MORAN MD Mar 13, 2025 16:41
[2025-03-13 17:00] VITALS: BP 97/59; PULSE 69; RESP 15; TEMP 97.6; O2SAT 92
== END 2025-03-13 19:46 | disposition home health service (06) | DRG 853 ==
LOC: ER 16:01 → OVERFLOW 22:15 → WEST WING 03-11 17:40 → CENTRAL 03-13 00:34 → WEST WING 03-13 00:41 → CENTRAL 03-13 00:43
PROVIDERS: ADMIT Internal Medicine; ATTEND Internal Medicine
PROC: 0Y9N0ZZ Drainage of Left Foot, Open Approach (ICD-10-PCS; principal; 2025-03-11 13:11)
PROC: 5A1D70Z Performance of Urinary Filtration, Intermittent, Less than 6 Hours Per Day (ICD-10-PCS; 2025-03-12)
PROC: 0Y9N0ZZ Drainage of Left Foot, Open Approach (ICD-10-PCS; 2025-03-13)
PROC: 0HXNXZZ Transfer Left Foot Skin, External Approach (ICD-10-PCS; 2025-03-13)
DX: A41.9 Sepsis, unspecified organism (principal); N18.6 End stage renal disease; L02.612 Cutaneous abscess of left foot; I13.2 Hypertensive heart and chronic kidney disease with heart failure and with stage 5 chronic kidney disease, or end stage renal disease; L03.116 Cellulitis of left lower limb; Z68.41 Body mass index [BMI] 40.0-44.9, adult; M86.8X7 Other osteomyelitis, ankle and foot; K21.9 Gastro-esophageal reflux disease without esophagitis; M81.0 Age-related osteoporosis without current pathological fracture; E11.69 Type 2 diabetes mellitus with other specified complication; E11.22 Type 2 diabetes mellitus with diabetic chronic kidney disease; E11.621 Type 2 diabetes mellitus with foot ulcer; E11.40 Type 2 diabetes mellitus with diabetic neuropathy, unspecified; E11.42 Type 2 diabetes mellitus with diabetic polyneuropathy; E66.01 Morbid (severe) obesity due to excess calories; Z83.3 Family history of diabetes mellitus; Z99.2 Dependence on renal dialysis; Z82.62 Family history of osteoporosis; Z82.49 Family history of ischemic heart disease and other diseases of the circulatory system; Z82.3 Family history of stroke; Z82.0 Family history of epilepsy and other diseases of the nervous system; Z81.8 Family history of other mental and behavioral disorders; Z80.8 Family history of malignant neoplasm of other organs or systems; Z80.7 Family history of other malignant neoplasms of lymphoid, hematopoietic and related tissues; Z80.41 Family history of malignant neoplasm of ovary; Z80.3 Family history of malignant neoplasm of breast; Z80.1 Family history of malignant neoplasm of trachea, bronchus and lung; Z88.8 Allergy status to other drugs, medicaments and biological substances; Z79.4 Long term (current) use of insulin; Z82.5 Family history of asthma and other chronic lower respiratory diseases; Z87.11 Personal history of peptic ulcer disease; L97.529 Non-pressure chronic ulcer of other part of left foot with unspecified severity
CPT/HCPCS: 36415; 71045; 73700; 80048; 80053; 80202; 82565; 82962; 83605; 84702; 85025; 85610; 85652; 86141; 86850; 86900; 86901; 87040; 87070; 87075; 87077; 87186; 87205; 90935; 96365; 99291; G0378; J2405; J2543; J3490